=== PATIENT | female | born 1950 | race Caucasian/White ===

== ENCOUNTER → 2018-12-22 08:18 | Outpatient (CLI) | payer MEDICARE, MEDICAID, SELFPAY ==
--- NOTE | 2018-12-22 08:22 | MR_ITS ---
MR lumbar spine wo con, MR 3-d myelogram/MRCP HISTORY: Low back pain with bilateral lower extremity pain. ITS.REASON: back pain ORDERING PHYSICIAN: Alan Gross MD PATIENT AGE: 68 years Comparison: None TECHNIQUE: Standard multiplanar multiecho sequences are performed without contrast. 3-D MIP and myelographic images are also rendered and reviewed FINDINGS: Normal alignment. The spinal cord ends at the L1 level. L1-L2 and L2-L3 have an unremarkable appearance. L3-L4: There is mild degenerative disc disease with minimal bulging disc. There is 2 mm anterolisthesis of L3. Mild facet and ligamentum flavum hypertrophy present with mild bilateral lateral recess and foraminal narrowing. L4-5: Mild concentric bulging disc. There is mild facet and ligamentum flavum hypertrophy with mild bilateral lateral recess and foraminal narrowing. L5-S1: There is mild facet hypertrophic change with mild bilateral foraminal narrowing. No disc herniation or bony canal stenosis. Incidental note is made of enlarged left adrenal gland 2.[address] of the adrenal glands without and with contrast with adrenal protocol suggested for further evaluation. IMPRESSION: 1. L3-L4: There is mild degenerative disc disease with minimal bulging disc. There is 2 mm anterolisthesis of L3. Mild facet and ligamentum flavum hypertrophy present with mild bilateral lateral recess and foraminal narrowing. 2. L4-5: Mild concentric bulging disc. There is mild facet and ligamentum flavum hypertrophy with mild bilateral lateral recess and foraminal narrowing. 3. L5-S1: There is mild facet hypertrophic change with mild bilateral foraminal narrowing. 4. No disc herniation or bony canal stenosis. 5. Left adrenal enlargement. Consider CT of the adrenal glands with adrenal gland protocol without and with contrast IMPRESSION:
== END ==
PROVIDERS: PCP Emergency Medicine; Visit Provider Emergency Medicine
DX: M54.9 Dorsalgia, unspecified (principal); M54.5 Low back pain
CPT/HCPCS: 72148; 76376

== ENCOUNTER → 2019-01-05 09:31 | Outpatient (CLI) | payer MEDICARE, MEDICAID, SELFPAY ==
[2019-01-05 11:12] LABS: Anion Gap 8.9 mEq/L (5-15); Blood Urea Nitrogen 12 mg/dL (7-18); Calcium 9.6 mg/dL (8.5-10.1); Carbon Dioxide 36 mmol/L (21.0-32.0); Chloride 97 mmol/L (98-107); Creatinine,Serum 0.61 mg/dL (0.55-1.02); Estimated Glomerular Filt Rate 98 ml/min (>60); GFR (African American) 119 ML/MIN (>60); Glucose 97 mg/dL (74-106); Potassium 4.9 mmoL/L (3.5-5.1); Sodium 137 mmol/L (136-145)
== END ==
PROVIDERS: Visit Provider Nurse Practitioner Family
DX: Z01.818 Encounter for other preprocedural examination (principal)
CPT/HCPCS: 36415; 80048

== ENCOUNTER → 2019-01-06 08:31 | Outpatient (CLI) | payer MEDICARE, MEDICAID, SELFPAY ==
--- NOTE | 2019-01-06 08:36 | CT_ITS ---
CT abdomen wo/w con CLINICAL INDICATION: Left adrenal mass ITS.REASON: enlarged left adrenal gland ORDERING PHYSICIAN: Shyanne Gamez PATIENT AGE: 68 years COMPARISON: 12/22/2018 TECHNIQUE: Axial images obtained with sagittal and coronal reformats. All CT scans at the facility use one or more dose reduction, viz: automated exposure control, ma/kV adjustment per patient size (including targeted exams where dose is matched to indication, i.e. head), or iterative reconstruction technique. PROCEDURE: Oral Contrast: None IV Contrast: 75 mL Optiray 350. FINDINGS: Lower thorax: There are some atelectatic or fibrotic changes in the lung bases. A 10 mm nodular opacity is present in the left lung base medially. There are some fibrotic or atelectatic changes adjacent to this nodular opacity. There is calcification of the right adrenal gland. There is a 3 x 2.8 cm left adrenal mass. This however measures -21 Hounsfield units on the pre enhanced exam 34 Hounsfield units on the enhanced hast exam and -5 Hounsfield units on the delayed images consistent with an adenoma. The liver, gallbladder, spleen, and pancreas have an unremarkable appearance. Common bile duct is prominent measuring up to 1 cm in the pancreatic head region. No obvious common duct stone. No renal or ureteral calculi. No obvious renal mass. Small exophytic isodensity projects off the lateral aspect of the left kidney at 5 mm suggesting a small renal cyst. No acute bony findings. IMPRESSION: 1. Left adrenal mass is consistent with an adenoma. 2. Prominent common bile duct at 10 mm. Ultrasound and MRCP may be of further value 3. 10 mm left lower lobe nodular opacity which may be due to an area of scarring. [address] follow-up suggested
--- NOTE | 2019-01-06 10:19 | HMH.ITSHM ---
Current Home Medications as stated by this patient Shiloh Villalta or patient account representative. []BREO GABAPENTIN,LISINOPRIL,HYDROCODONE VENTOLIN
== END ==
PROVIDERS: PCP Emergency Medicine; Visit Provider Nurse Practitioner Family
DX: Q89.1 Congenital malformations of adrenal gland (principal)
CPT/HCPCS: 74170

== ENCOUNTER → 2019-01-24 07:42 | Outpatient (CLI) | payer MEDICARE, MEDICAID, SELFPAY ==
--- NOTE | 2019-01-24 07:43 | CT_ITS ---
CT chest wo con HISTORY: Follow-up pulmonary nodule, smoker, tobacco use ITS.REASON: 3 mth f/u due after 03/06/19 ORDERING PHYSICIAN: Alan Gross MD PATIENT AGE: 68 years COMPARISON: 01/06/2019 Technique: Axial images obtained without contrast. Sagittal, and coronal reformatted images are also generated and reviewed. All CT scans at the facility use one or more dose reduction, viz: automated exposure control, ma/kV adjustment per patient size (including targeted exams where dose is matched to indication, i.e. head), or iterative reconstruction technique. FINDINGS: There are coronary artery calcifications. No mediastinal or hilar mass or adenopathy is evident. There is normal heart size without obvious pericardial effusion. Mild calcification noted involving the aortic valve There is hyperinflation with attenuation of the peripheral pulmonary vessels consistent with COPD. Mild focal thickening noted in the right minor fissure anteriorly nonspecific flat-like in nature at 12 x 8 mm. Scattered areas of scarring are noted in the lung bases. The previously noted nodular opacity in the left lung base at approximately 10 mm is once again noted and not significant changed and may very well be due to an area of parenchymal fibrosis/scarring. Six-month follow-up recommended. There is an area of patchy groundglass density in the right lower lobe medially at 12 mm and could be due to small area of infiltrate. Upper abdominal images once again shows a 3 cm left adrenal mass with an average density of -9 Hounsfield units consistent with an adenoma not significantly changed. Calcification involves a small right adrenal gland. No acute bony findings. IMPRESSION: 1. COPD with scattered areas of scarring/fibrotic change. 2. Overall no change in the irregular opacity in the left lung base which may be due to an area of scarring. Continued six-month follow-up is suggested. 3. No change left adrenal adenoma. 4. Patchy area of groundglass density in the right lung base medially may be due to small area of infiltrate
== END ==
PROVIDERS: PCP Emergency Medicine; Visit Provider Emergency Medicine
DX: R91.1 Solitary pulmonary nodule (principal)
CPT/HCPCS: 71250

== ENCOUNTER → 2019-01-26 08:45 | Outpatient (CLI) | payer MEDICARE, MEDICAID, SELFPAY ==
--- NOTE | 2019-01-26 08:57 | US_ITS ---
US abdomen complete HISTORY: ITS.REASON: BILE DUCT ABNORMALITY ORDERING PHYSICIAN: Alan Gross MD PATIENT AGE: 68 years COMPARISON: January 06, 2019 CT abdomen pelvis FINDINGS: LIVER:. Only suggestion slight increased echogenicity suggesting very subtle fatty changes through majority of liver. There is a vague 2.3 cm slightly more hypoechoic area near the fissure of the ligamentum teres. I favor this reflects some focal fatty sparing is it is not evident on recent CT study with and without contrast No no significant Intrahepatic ductal dilatation. Upper normal caliber common centrally liver. COMMON DUCT then appear to be slightly dilated measuring up to 9.3 mm inferior grupo hepatis and slight less dilated inferior to this point to the head of pancreas. Between ultrasound and CT the CBD appears to gradually tapers inferior to this and to the head of pancreas.. No common duct stone appreciable. No mass of pancreas evident No adenopathy at the grupo hepatis however no significant PANCREAS:Appears satisfactory. Unremarkable. . No obvious mass or abnormal fluid collection. No pancreatic ductal dilatation . Kidneys appear normal in size bilaterally. Cortex well-maintained. No hydronephrosis. RIGHT KIDNEY:9.5 cm length 1.3 cm cyst at lower pole right kidney-adjacent to lower pole calyx LEFT KIDNEY:10 cm length. No hydronephrosis. Kidney unremarkable. Cortex well-maintained bilaterally. GALLBLADDER:No discrete gallstones,. Minimal sludge and debris at gallbladder.. No gallbladder wall thickening AORTA:Normal caliber aorta with atherosclerotic calcification No evidence of aneurysmal dilatation. SPLEEN:Moderate size, but normal echogenicity Unremarkable.. ASCITES:None demonstrated. IMPRESSION:...................... 1. Gallbladder. Minimal sludge no calcified stones 2. Common duct: perhaps very slightly dilated, at & inferior to grupo hepatis.... It gradually tapering to pancreas. No CBD stone evident.No pancreatic mass appreciable No significant intrahepatic ductal dilatation.. 3. Questionable Vague low-density area noted at central portion liver-however I suspect most likely reflects some fatty sparing adjacent to the fissure for ligamentum teres. No associated findings seen here on recent pre and postcontrast CT thus doubt of significance.- Can be followed 4. Small 1.3 cm cyst lower pole right kidney incidentally noted.
== END ==
PROVIDERS: PCP Emergency Medicine; Visit Provider Emergency Medicine
DX: K83.9 Disease of biliary tract, unspecified (principal)
CPT/HCPCS: 76700

== ENCOUNTER → 2019-02-08 13:55 | Outpatient (CLI) | payer MEDICARE, MEDICAID, SELFPAY ==
[2019-02-08 15:16] LABS: Amphetamine/Metha Screen,Urine Negative ng/mL (<1000); Barbiturates Screen,Urine Negative ng/mL (<200); Benzodiazepines Screen,Urine Negative ng/mL (<200); Cannabinoid Screen,Urine Negative ng/mL (<50); Cocaine Screen,Urine Negative ng/mL (<300); Methadone Screen,Urine Negative ng/mL (<300); Opiate Screen,Urine Negative ng/mL (<300); Phencyclidine Screen,Urine Negative ng/mL (<25)
[2019-02-17 13:06] LABS: Opiates Negative
== END ==
PROVIDERS: Visit Provider Emergency Medicine
DX: Z79.899 Other long term (current) drug therapy (principal)
CPT/HCPCS: 80305; 80361; G0480

== ENCOUNTER → 2019-06-01 13:36 | Outpatient (CLI) | payer MEDICARE, MEDICAID, SELFPAY ==
[2019-06-01 16:14] LABS: Amphetamine/Metha Screen,Urine Negative ng/mL (<1000); Barbiturates Screen,Urine Negative ng/mL (<200); Benzodiazepines Screen,Urine Negative ng/mL (<200); Cannabinoid Screen,Urine Negative ng/mL (<50); Cocaine Screen,Urine Negative ng/mL (<300); Methadone Screen,Urine Negative ng/mL (<300); Opiate Screen,Urine Negative ng/mL (<300); Phencyclidine Screen,Urine Negative ng/mL (<25)
== END ==
PROVIDERS: Visit Provider Nurse Practitioner Family
DX: Z79.899 Other long term (current) drug therapy (principal)
CPT/HCPCS: 80305

== ENCOUNTER → 2019-06-30 13:59 | Outpatient (CLI) | payer MEDICARE, MEDICAID, SELFPAY ==
[2019-06-30 14:36] LABS: Amphetamine/Metha Screen,Urine Negative ng/mL (<1000); Barbiturates Screen,Urine Negative ng/mL (<200); Benzodiazepines Screen,Urine Negative ng/mL (<200); Cannabinoid Screen,Urine Negative ng/mL (<50); Cocaine Screen,Urine Negative ng/mL (<300); Methadone Screen,Urine Negative ng/mL (<300); Opiate Screen,Urine Positive ng/mL (<300); Phencyclidine Screen,Urine Negative ng/mL (<25)
== END ==
PROVIDERS: Visit Provider Emergency Medicine
DX: M47.816 Spondylosis without myelopathy or radiculopathy, lumbar region (principal)
CPT/HCPCS: 80305

== ENCOUNTER → 2019-08-14 14:31 | Outpatient (CLI) | payer MEDICARE, MEDICAID, SELFPAY ==
--- NOTE | 2019-08-14 14:32 | CT_ITS ---
PROCEDURE: CT CHEST WO CON CLINICAL INDICATION: 6 mth f/u Follow-up pulmonary nodule. COPD COMPARISON: ABDWW CT abdomen wo/w con from 01/06/[address] chest wo con from 01/24/2019 TECHNIQUE: Axial images obtained with sagittal and coronal reformats. All CT scans at the facility use one or more dose reduction, viz: automated exposure control, ma/kV adjustment per patient size (including targeted exams where dose is matched to indication, i.e. head), or iterative reconstruction technique. FINDINGS: Coronary artery calcification. Normal heart size. COPD with scattered areas of scarring as previously described. There is persistent triangular-shaped opacity in the left lung base posteriorly measuring approximately 10 mm AP and transverse. This appears very slightly more prominent along the lower margin. This however could be due to the slice orientation. Continued follow-up is suggested. Previously noted ground-glass opacity in the right lung base is no longer apparent. No change in the left adrenal mass measuring 3 cm consistent with an adenoma. Calcification is present in right adrenal. Left hemidiaphragm is slightly elevated. IMPRESSION: 1. COPD with scattered areas of scarring. 10 mm nodular opacity noted in the left lung base posteriorly which appears slightly more prominent but may be due to the slice orientation. Recommend continued six-month follow-up to confirm a 1 year stability. 2. No change in left adrenal nodule consistent with an adenoma Dictated by: Galen Hawkins MD 08/15/2019 06:33 Electronically signed by Galen Hawkins MD in [place] 08/15/2019 06:33
== END ==
PROVIDERS: PCP Emergency Medicine; Visit Provider Emergency Medicine
DX: R91.8 Other nonspecific abnormal finding of lung field (principal)
CPT/HCPCS: 71250

== ENCOUNTER → 2020-04-26 12:49 | Outpatient (CLI) | payer MEDICARE, MEDICAID, SELFPAY ==
--- NOTE | 2020-04-26 12:49 | CT_ITS ---
PROCEDURE: CT CHEST WO CON CLINICAL INDICATION: 6 mth f/u Follow-up lung nodule COMPARISON: CHESTWO CT chest wo con from 01/24/2019 CT CHEST WO CON from 08/14/2019 TECHNIQUE: Axial images obtained with sagittal and coronal reformats. All CT scans at the facility use one or more dose reduction, viz: automated exposure control, ma/kV adjustment per patient size (including targeted exams where dose is matched to indication, i.e. head), or iterative reconstruction technique. FINDINGS: HEART AND MEDIASTINAL STRUCTURES: There are coronary artery calcifications. No mediastinal or hilar mass or adenopathy. Aortic valve calcifications also noted. LUNGS AND PLEURAL SPACES: COPD with scattered areas of scarring. Irregular opacity in the left lung base medially once again noted. This does not appear significantly changed. Other areas of scarring also noted unchanged. No new parenchymal opacities identified BONY STRUCTURES: No acute bony abnormalities apparent. UPPER ABDOMEN: No change 2.9 cm low-dense nodule of the adrenal gland consistent with an adenoma ADDITIONAL FINDINGS: No other significant abnormalities. IMPRESSION: Overall stable CT appearance of the chest. There are changes of COPD with scattered areas of scarring. The parenchymal opacity in the left lung base medially does not appear significantly changed. Suggest annual follow-up No change left adrenal nodule consistent with an adenoma. Coronary artery calcifications are present Dictated by: Galen Hawkins MD 04/27/2020 07:18 Electronically signed by Galen Hawkins MD in [place] 04/27/2020 07:18
== END ==
PROVIDERS: PCP Emergency Medicine; Visit Provider Emergency Medicine
DX: R91.1 Solitary pulmonary nodule (principal)
CPT/HCPCS: 71250

== ENCOUNTER → 2020-06-13 06:28 | Outpatient (CLI) | payer MEDICARE, MEDICAID, SELFPAY ==
--- NOTE | 2020-06-13 06:29 | CA_ITS ---
APPROVED REPORT EXAM: Comprehensive 2D, Doppler, and color-flow Echocardiogram Semiconductor Engineer: Maria E La CRT Ht: 5 ft 2 in Wt: 173lbs BSA: 1.80 BP: 138/69 mmHg Indications: Chest Pain, Shortness of Breath, Hyperlipidemia, Hypertension/HDD, Smoker, CAD 2D Dimensions LVOT 1.70 cm (M/F) 1.5-2.5 M-Mode Dimensions RVDd 2.84 cm (0.9-2.6) LVDd 4.54 cm (3.5-5.7) LVDs 2.50 cm (3.5-5.7) IVSd 1.51 cm (0.6-1.1) PWd 0.91 cm (0.6-1.1) EF (Teich) 76.40% FS 44.90% EDV (Teich) 94.40 mL ESV (Teich) 22.30 mL LV Diastology E/A Ratio 0.84 Mitral Valve MV A Velocity 92.00 (40-130 cm/s) Left Ventricle Left atrium is mildly enlarged, left ventricle is normal size, mild concentric left ventricular hypertrophy, visually estimated ejection fraction 55% with no regional wall motion abnormality, grade 1 diastolic dysfunction seen without tissue Doppler evidence of raise left atrial pressure. Right Ventricle Right atrium and right ventricle are normal size and contractility. Aortic Valve Aortic valve is minimally thickened and fibrosed, there is no aortic stenosis or aortic insufficiency. Mitral Valve Mitral valve leaflets are minimally thickened, there is no mitral stenosis, there is mild mitral regurgitation. Tricuspid Valve Tricuspid valve is grossly normal, there is mild tricuspid regurgitation, tricuspid regurgitation jet velocity is inadequate for calculation of the right ventricular systolic pressure. Pulmonic Valve Pulmonic valve is poorly visualized. Great Vessels Aortic root is normal size. Pericardium No significant pericardial effusion noted. Conclusion 1. Mildly enlarged left atrium, normal left ventricular size, mild concentric left ventricular hypertrophy, visually estimated ejection fraction 55% with no regional wall motion abnormality, grade 1 diastolic dysfunction seen without tissue Doppler evidence of raise left atrial pressure. 2. Mild mitral and tricuspid regurgitation. 3. No significant pericardial effusion noted. Electronically signed by : Gage Muller, 06/13/2020 13:10:00
--- NOTE | 2020-06-13 06:29 | CA_ITS ---
APPROVED REPORT Ampoule Filler And Sealer: [place] Laterality: Bilateral Study Quality: Good Indications: atypical angina/coronary calcium on ct Doppler Spectral Velocity Analysis dICA (R) 74.70/18.70 cm/s dICA (L) 106.90/31.30 cm/s Abdias (R) 106.00/19.30 cm/s Abdias (L) 102.30/35.80 cm/s pICA (R) 285.80/55.50 cm/s pICA (L) 162.90/40.70 cm/s dCCA (R) 54.20/10.80 cm/s dCCA (L) 71.80/21.90 cm/s pCCA (R) 191.80/66.10 cm/s pCCA (L) 69.70/17.20 cm/s Vert (R) 44.60/13.00 cm/s Vert (L) 53.80/17.00 cm/s ICA/CCA 5.30 ICA/CCA 2.20 Findings Duplex evaluation demonstrates stenosis of the right proximal internal carotid artery in the range of 70-99% Duplex evaluation demonstrates stenosis of the left proximal internal carotid artery in the range of 50-79% Antegrade flow seen bilateral vertebral arteries. Conclusion Duplex evaluation demonstrates stenosis of the right proximal internal carotid artery in the range of 70-99% Duplex evaluation demonstrates stenosis of the left proximal internal carotid artery in the range of 50-79% Antegrade flow seen bilateral vertebral arteries. Electronically signed by : Galen Hawkins MD 06/14/2020 17:44:08
--- NOTE | 2020-06-13 06:33 | CA_ITS ---
APPROVED REPORT Exam: Pharmacologic Technologist: Erin Davey, Ht: 5 ft 2 in Wt: 170 lbs BSA: 1.78 m2 HR: 60 bpm BP: 105/51 mmHg Rhythm: SINUS BRADYCARDIA,LOW VOLTAGE QRS Medical History Medical History: HTN, Hyperlipidemia, Smoking Medications: Hydrocodone,,,,, Gabapentin,,,,, Lisinopril/HCTZ,,,,, RoSovastatin,,,,, Cardiac Risk Factors: HTN, Hyperlipidemia, FHX of CAD, Smoking Stress Test Details Test: LEXISCAN HR Resting HR: 63 bpm Max Heart Rate (APMHR): 153 bpm Max HR Achieved: 79 bpm Target HR (85% APMHR): 130 bpm % of APMHR: 51 Recovery HR: 65 bpm BP Resting BP: 105/51 mmHg Max BP: 135/60 mmHg Recovery BP: 125.0/59.0 mmHg ECG Resting ECG: SINUS BRADYCARDIA,LOW VOLTAGE QRS Clinical Exercise duration: 04:35 min Highest Stage Achieved: Exercise capacity: 1.0 METs Stress ECG Conclusion DURING INFUSION PATIENT WAS MILDLY LIGHT-HEADED. NO CHEST PAIN. NO ARRHYTHMIAS/ECTOPY. NO SIGNIFICANT ST-T CHANGES. UNREMARKABLE LEXISCAN STRESS. MYOVIEW IMAGES REPORTED SEPARATELY. Electronically signed by : Gage Muller, 06/14/2020 10:32:39
--- NOTE | 2020-06-13 06:33 | NM_ITS ---
APPROVED REPORT Exam: Nuclear Stress Test Indication: HTN, HYPERLIPIDEMIA, TOB USE, FM HX, C.P. Patient Location: Outpatient Stress Tech: Odette Haronkson MD Tech:JUAN Hayward RT(R)(N) Ht: 5 ft 2 in Wt: 170 lbs Bra Size: 36B HR: 60 bpm BP: 105/51 mmHg BSA: 1.78 m2 BMI: 31.0 History: HTN, HYPERLIPIDEMIA, TOB USE, FM HX, C.P. Procedure: Patient received a 0.4 mg of intravenous Lexiscan, resting heart rate 60 bpm, resting blood pressure 105/51 mmHg, with Lexiscan maximum heart rate achived was 96 bpm which is Less than 85 % of the maximum predicted heart rate and blood pressure was 130/64 mmHg. With Lexiscan, patient denied any complaint of chest pain. Electrocardiogram Resting electrocardiogram showed sinus rhythm, with Lexiscan there is less than 1.[address] segment depression noted from the baseline EKG. The EKG portion of the Lexiscan Myoview is nondiagnostic. Cardiac Stress and Resting SPECT Images: Cardiac Stress and Resting SPECT images were obtained using technetium 99m Myoview 31.8 mCi stress and 10.41 mCi at rest. Gated SPECT for the analysis of segmental wall motion and calculation of the ejection fraction also done. Cardiac stress and resting SPECT images show mild fixed defect anteroapically with normal contracted gated SPECT is likely secondary to soft tissue attenuation, no reversible ischemia seen, computer derived ejection fraction is 64% with no regional wall motion abnormality, right ventricle is normal size and contractility. Conclusion: 1. The EKG portion of the Lexiscan Myoview is nondiagnostic. 2. No scintigraphic evidence of reversible ischemia seen, computer derived ejection fraction is 64% with no regional wall motion abnormality, right ventricle is normal size and contractility. 3. Likely normal Lexiscan Myoview study. Electronically signed by : Gage Muller, 06/14/2020 10:35:31
--- NOTE | 2020-06-13 09:04 | HMH.ITSHM ---
Current Home Medications as stated by this patient Shiloh Villalta or sales representative womens health. [] gabapentin lisinoppril asa
== END ==
PROVIDERS: PCP Emergency Medicine; Visit Provider Internal Medicine Cardiovascular Disease
DX: I20.8 Other forms of angina pectoris; R06.00 Dyspnea, unspecified; R42 Dizziness and giddiness; I10 Essential (primary) hypertension; J45.909 Unspecified asthma, uncomplicated; Z82.49 Family history of ischemic heart disease and other diseases of the circulatory system; F17.200 Nicotine dependence, unspecified, uncomplicated
CPT/HCPCS: 78452; 93017; 93306; 93880; A9502; J2785

== ENCOUNTER → 2020-06-28 09:06 | Outpatient (CLI) | payer MEDICARE, MEDICAID, SELFPAY ==
--- NOTE | 2020-06-28 09:18 | CT_ITS ---
Procedure: CT ANGIO NECK CLINICAL HISTORY: gustabo abnormal carotid u/s Headaches, dizziness, abnormal carotid duplex COMPARISON: No exams were available for comparison TECHNIQUE: IV Contrast: 100ml Optiray 350 Axial images obtained with sagittal and coronal reformats. All CT scans at the facility use one or more dose reduction, viz: automated exposure control, ma/kV adjustment per patient size (including targeted exams where dose is matched to indication, i.e. head), or iterative reconstruction technique. FINDINGS: There are mild atheromatous changes of the aorta with some calcific plaque at the ostium of the right brachiocephalic and the left carotid artery. No significant stenosis. Mild calcific plaque is present at the ostium of the right subclavian with approximately 30 percent stenosis. The vertebral arteries are patent bilaterally with no significant ostial stenosis. There is prominent calcific plaque at the distal aspect of the right common carotid. This is causing 75 percent stenosis of the distal aspect of the RIGHT COMMON CAROTID. Calcific plaque is present at the bifurcation and ostium of the internal carotid artery on the right which is causing 60 percent stenosis of the ostium of the RIGHT ICA. There is tortuosity of the internal carotid on the right with a retropharyngeal coarse. Calcific plaque is present in the proximal aspect of the left ICA causing approximately 56 stenosis. There is retropharyngeal course of the left ICA. No obvious ulcerations evident IMPRESSION: 1. 75 percent stenosis of the distal aspect the right common carotid artery due to calcific plaque 2. 60 percent stenosis of the ostium of the right ICA due to calcific plaque 3. 56 percent stenosis of the proximal left ICA due to calcific plaque Dictated b Galen Hawkins MD 06/29/2020 08:42 Galen Hawkins MD in [place] 06/29/2020 08:42
[2020-06-28 09:31] LABS: Blood Urea Nitrogen 9 mg/dl (7-17); Estimated Glomerular Filt Rate 123 ml/min (>60); GFR (African American) 149 ML/MIN (>60)
== END ==
PROVIDERS: Visit Provider Internal Medicine Cardiovascular Disease
DX: F17.200 Nicotine dependence, unspecified, uncomplicated (principal); I10 Essential (primary) hypertension; I20.8 Other forms of angina pectoris; I65.29 Occlusion and stenosis of unspecified carotid artery; J45.909 Unspecified asthma, uncomplicated; M79.7 Fibromyalgia; R06.00 Dyspnea, unspecified; R42 Dizziness and giddiness; Z82.49 Family history of ischemic heart disease and other diseases of the circulatory system
CPT/HCPCS: 36415; 70498; 82565; 84520; Q9967

== ENCOUNTER → 2020-12-19 09:35 | Outpatient (CLI) | payer MEDICARE, MEDICAID, SELFPAY ==
[2020-12-19 10:47] LABS: Alanine Aminotransferase 23 U/L (12-78); Albumin Level 4.2 g/dl (3.5-5.0); Alkaline Phosphatase 85 U/L (38-126); Aspartate Amino Transferase 26 U/L (14-36); Bilirubin,Direct 0.2 mg/dl (0.0-0.4); Bilirubin,Indirect 0.4 mg/dL (0.0-0.9); Bilirubin,Total 0.6 mg/dl (0.2-1.3); Bilirubin,Unconjugated 0.4 mg/dL (0.0-1.1); Chol/HDL Ratio 1.9 (1-3.5); Cholesterol 150 mg/dl (140-200); HDL Cholesterol 81 mg/dl (40-60); Triglycerides 101 mg/dl (30-150); VLDL Cholesterol 20 mg/dL (0-40)
[2020-12-19 10:59] LABS: Direct LDL Cholesterol 43.05 mg/dL (100-129)
== END ==
PROVIDERS: Visit Provider Internal Medicine Cardiovascular Disease
DX: F17.200 Nicotine dependence, unspecified, uncomplicated (principal); I10 Essential (primary) hypertension; R06.02 Shortness of breath; I65.23 Occlusion and stenosis of bilateral carotid arteries
CPT/HCPCS: 36415; 80061; 80076; 84484

== ENCOUNTER → 2020-12-26 10:34 | Outpatient (CLI) | payer MEDICARE, MEDICAID, SELFPAY ==
[2020-12-26 11:08] LABS: Basophils # 0.1 K/mm3 (0-0.2); Basophils % 0.7 % (0.1-2.0); Eosinophils # 0.3 K/mm3 (0.0-0.4); Eosinophils % 3.4 % (0.1-12.0); Hematocrit 41.9 % (37.0-47.0); Hemoglobin 13.1 g/dL (12.2-16.2); Lymphocytes # 2.3 K/mm3 (0.7-4.5); Lymphocytes % 31.6 % (10-50); Mean Corpuscular HGB Conc 31.2 g/dL (31.8-35.4); Mean Corpuscular Hemoglobin 28.8 pg (27.0-31.2); Mean Corpuscular Volume 92.3 fl (81-99); Mean Platelet Volume 7.2 fl (7.4-10.4); Monocytes # 0.5 K/mm3 (0.1-1.0); Monocytes % 6.8 % (1.7-9.3); Neutrophils # 4.2 K/mm3 (1.8-7.8); Neutrophils % 57.5 % (37.0-80.0); Platelet Count 238 K/mm3 (142-424); Red Blood Count 4.54 M/mm3 (4.20-5.40); Red Cell Distribution Width 13.1 % (11.5-17.5); White Blood Count 7.4 K/mm3 (4.8-10.8)
[2020-12-26 11:30] LABS: Troponin I < 0.01 ng/ml (0.00-0.034)
[2020-12-26 11:36] LABS: Chloride 99 mmol/L (98-107); Potassium 4.6 mmoL/L (3.5-5.1); Sodium 140 mmol/L (136-145)
[2020-12-26 11:39] LABS: Anion Gap 6.6 mEq/L (5-15); Blood Urea Nitrogen 15 mg/dl (7-17); Carbon Dioxide 39 mmol/L (22.0-30.0); Estimated Glomerular Filt Rate 83 ml/min (>60); GFR (African American) 101 ML/MIN (>60)
[2020-12-26 11:40] LABS: Calcium 9.7 mg/dl (8.4-10.2); Glucose 114 mg/dl (74-100)
[2020-12-26 11:48] LABS: Coronavirus 19 IgG Antibody Negative (Negative); Coronavirus 19 IgM Antibody Negative (Negative)
== END ==
PROVIDERS: Physician Assistant; Visit Provider Internal Medicine Cardiovascular Disease
DX: Z01.812 Encounter for preprocedural laboratory examination; Z20.822 Contact with and (suspected) exposure to COVID-19; R07.9 Chest pain, unspecified; R06.00 Dyspnea, unspecified; I20.0 Unstable angina; I10 Essential (primary) hypertension; F17.200 Nicotine dependence, unspecified, uncomplicated; I65.29 Occlusion and stenosis of unspecified carotid artery
CPT/HCPCS: 36415; 80048; 84484; 85025; 86328

== ENCOUNTER 2020-12-27 08:20 | Day surgery (SDC) | payer MEDICARE, MEDICAID, SELFPAY ==
[2020-12-27] VITALS (12 sets, daily range): BP systolic 80–120; BP diastolic 42–82; PULSE 41–65; RESP 16–20; O2SAT 90–100; BMI 30.7
--- NOTE | 2020-12-27 07:33 | IR_ITS ---
APPROVED REPORT Patient Location: Outpatient Powerhouse Mechanic Helper: JUAN Kelly RT (R) PROCEDURES Left heart catheterization Left ventriculogram Selective coronary angiogram INDICATION Crescendo angina, Class IV angina pectoris Informed consent was obtained prior to the procedure. COMPLICATIONS NONE Estimated Blood Loss: LESS THAN 10 ML TECHNIQUE One percent lidocaine used to anesthetize the right anterior aspect of the wrist. The right radial artery was accessed via the Seldinger technique. A 6 Tongan sheath was placed in the right radial artery. 2.5 mg of verapamil, 800 mcg of nitroglycerin, 1mg Lidocaine and 5000 U Heparin were given through the arterial sheath. The trap catheter was also used to perform left heart catheterization, left ventriculogram and selective coronary angiogram. At the end of the procedure the sheath was removed good hemostasis was achieved using Traclet band, patient was transferred to the postop holding area in stable condition. ANGIOGRAPHIC RESULTS The left main artery Normal The left anterior descending artery Is externally calcified under fluoroscopy however angiographically normal from an intraluminal standpoint with no intraluminal obstruction The circumflex artery Dominant normal The right coronary artery Nondominant normal The FULTON ventriculogram reveals Normal 65% The left ventricular end-diastolic pressure Severely elevated at 40 mmHg IMPRESSION Normal coronary arteries with fluoroscopic evidence of extravascular calcification which at this point is not clinically relevant Normal ejection fraction Severely elevated LVEDP consistent with severe diastolic dysfunction PLAN 1. Treatment of underlying diastolic dysfunction which is almost certainly the etiology for patient's angina pectoris Electronically signed by : Adama Mendoza, 12/27/2020 11:02:04
--- NOTE | 2020-12-27 08:28 | CA_ITS ---
APPROVED REPORT Bank Runner: Bea Martinez RVT Laterality: Bilateral Study Quality: Good Indications: gustabo Risk Factors Hypertension: Hyperlipidemia Smoking Doppler Spectral Velocity Analysis ECA (R) 104.20/18.80 cm/s ECA (L) 95.20/8.20 cm/s dICA (R) 186.20/44.40 cm/s dICA (L) 117.60/27.00 cm/s Abdias (R) 174.20/51.20 cm/s Abdias (L) 157.60/37.60 cm/s pICA (R) 254.50/58.10 cm/s pICA (L) 104.60/34.10 cm/s dCCA (R) 98.40/15.00 cm/s dCCA (L) 77.60/21.20 cm/s pCCA (R) 72.70/18.20 cm/s pCCA (L) 71.70/17.60 cm/s Vert (R) 44.40/15.40 cm/s Vert (L) 47.00/11.80 cm/s ICA/CCA 2.59 ICA/CCA 2.03 Findings Study suggests 70-99% (lower end of scale) stenosis of the right internal cartoid artery unchanged from the 06/13/20 study. Study suggests 50-69% stenosis of the left internal cartoid artery unchanged from the 06/13/20 study. Antegrade flow seen bilateral vertebral arteries. Conclusion Study suggests 70-99% (lower end of scale) stenosis of the right internal cartoid artery unchanged from the 06/13/20 study. Study suggests 50-69% stenosis of the left internal cartoid artery unchanged from the 06/13/20 study. Antegrade flow seen bilateral vertebral arteries. Electronically signed by : Galen Hawkins MD 12/27/2020 16:46:41
== END 2020-12-27 13:59 | disposition home or self-care (01) ==
LOC: CATHLAB 08:21
PROVIDERS: PCP Emergency Medicine; Visit Provider Internal Medicine
DX: I11.0 Hypertensive heart disease with heart failure; I65.29 Occlusion and stenosis of unspecified carotid artery; R06.00 Dyspnea, unspecified; R07.9 Chest pain, unspecified; R42 Dizziness and giddiness; Z72.0 Tobacco use; I25.110 Atherosclerotic heart disease of native coronary artery with unstable angina pectoris; I50.30 Unspecified diastolic (congestive) heart failure; Z88.0 Allergy status to penicillin; Z79.899 Other long term (current) drug therapy; Z79.51 Long term (current) use of inhaled steroids; Z79.82 Long term (current) use of aspirin
CPT/HCPCS: 93458; 93880; 99152; C1725; C1769; J1644; Q9967

== ENCOUNTER → 2021-01-03 08:07 | Outpatient (CLI) | payer MEDICARE, MEDICAID, SELFPAY ==
[2021-01-03 10:56] LABS: Blood Urea Nitrogen 18 mg/dl (7-17); Calcium 9.8 mg/dl (8.4-10.2); Carbon Dioxide 37 mmol/L (22.0-30.0); Chloride 99 mmol/L (98-107); Estimated Glomerular Filt Rate 71 ml/min (>60); GFR (African American) 86 ML/MIN (>60); Glucose 93 mg/dl (74-100); Sodium 139 mmol/L (136-145)
== END ==
PROVIDERS: Visit Provider Nurse Practitioner Family
DX: F17.200 Nicotine dependence, unspecified, uncomplicated (principal); I10 Essential (primary) hypertension; I25.10 Atherosclerotic heart disease of native coronary artery without angina pectoris; I65.29 Occlusion and stenosis of unspecified carotid artery; R06.00 Dyspnea, unspecified; R42 Dizziness and giddiness; Z82.49 Family history of ischemic heart disease and other diseases of the circulatory system
CPT/HCPCS: 36415; 80048

== ENCOUNTER → 2021-05-09 08:05 | Outpatient (CLI) | payer MEDICARE, MEDICAID, SELFPAY ==
--- NOTE | 2021-05-09 08:05 | CT_ITS ---
PROCEDURE: CT CHEST WO CON CLINICAL INDICATION: yearly f/u COMPARISON: CT CT CHEST WO CON from 04/26/2020 TECHNIQUE: Axial images obtained with sagittal and coronal reformats. All CT scans at the facility use one or more dose reduction, viz: automated exposure control, ma/kV adjustment per patient size (including targeted exams where dose is matched to indication, i.e. head), or iterative reconstruction technique. FINDINGS: Scattered mild emphysematous changes with bibasilar scar versus atelectasis again noted. No pleural effusion or pneumothorax. No discrete pulmonary nodules. Heart is not enlarged. No pericardial effusion or thickening. There is calcification of the abdominal aorta without aneurysm. Few small non-specific middle mediastinal lymph nodes are unchanged. Airways are patent. Images of the upper abdomen show a unchanged 3 centimeter nodule on the left adrenal gland, most consistent with adrenal adenoma. Calcified right adrenal gland noted. No other abnormality. Mild diffuse degenerative changes of the thoracic spine. No acute bony abnormality. IMPRESSION: Scattered mild emphysematous changes similar to prior exam with mild bibasilar scar versus atelectasis. No discrete pulmonary nodules. Unchanged 3 centimeter nodule left adrenal gland most consistent with adrenal adenoma. A few unchanged small middle mediastinal lymph nodes. Dictated by: Bradley Villeda MD 05/09/2021 09:59 Bradley Villeda MD in [place] 05/09/2021 09:59
== END ==
PROVIDERS: PCP Emergency Medicine; Visit Provider Emergency Medicine
DX: R91.1 Solitary pulmonary nodule (principal)
CPT/HCPCS: 71250

== ENCOUNTER → 2021-05-26 08:24 | Outpatient (CLI) | payer MEDICARE, MEDICAID, SELFPAY ==
--- NOTE | 2021-05-26 08:24 | FL_ITS ---
PROCEDURE: FL BARIUM SWALLOW CLINICAL INDICATION: trouble swallowing COMPARISON: No exams were available for comparison FINDINGS: Fluoro time: 1 minutes No annular constricting lesions or polypoid filling defects or mucosal abnormalities. There is a small sliding hiatal hernia. Reflux not demonstrated during the exam IMPRESSION: Small sliding hiatal hernia otherwise negative Dictated by: Galen Hawkins MD 05/26/2021 09:59 Galen Hawkins MD in [facility] 05/26/2021 09:59
== END ==
PROVIDERS: PCP Emergency Medicine; Visit Provider Emergency Medicine
DX: R13.10 Dysphagia, unspecified (principal)
CPT/HCPCS: 74220

== ENCOUNTER → 2021-06-02 09:55 | Outpatient (CLI) | payer MEDICARE, MEDICAID, SELFPAY | PROVIDERS: Visit Provider Surgery | DX: Z20.822 Contact with and (suspected) exposure to COVID-19 (principal) | CPT/HCPCS: U0003 ==

== ENCOUNTER 2021-06-04 08:31 | Day surgery (SDC) | payer MEDICARE, MEDICAID, SELFPAY ==
[2021-06-03 09:52] VITALS: BMI 31.1
[2021-06-04] VITALS (7 sets, daily range): BP systolic 100–143; BP diastolic 59–78; PULSE 93–112; RESP 16–18; TEMP 36.3–37.1; O2SAT 93–98
--- NOTE | 2021-06-04 09:40 | HMH.ANESCL ---
[facility] Anesthesia Checklist - Patient Identification Patient Identification: Arm Band - Structural Data Admitted From: Home Planned Operative Procedure/s: EGD Consent for Planned Operative Procedure(s) Verified: Yes - Airway Assessment C-Spine Mobility Assessed: Yes TMJ Mobility Assessed: Yes Dentition: Good Dentition - Neurological Assessment Level of Consciousness: Awake Hx Seizures: No Numbness or tingling in extremities: No - Anesthesia Plan Anesthesia Risk discussed: Yes Anesthesia Plan: Verified ASA Class: II Anesthesia Type: MAC [facility] History I have reviewed the patient's past medical history: Yes Medical History: Reports:: Anxiety, Asthma, Depression, Hyperlipidemia, Hypertension Denies:: Cancer, Diabetes Mellitus Type 1, Diabetes Mellitus Type 2, Gastroesophageal Reflux Disease(GERD), Internal Pacemaker, MRSA, Seizures, Transient Ischemic Attacks (TIA) *Have you ever received a pneumonia vaccine?: No *Have you received a flu vaccine this season?: No Other Medical History: Reports: Arthritis, Fibromyalgia, Sinus Problems. Denies: Thyroid Disease Anesthesia experience/problems:: None Laterality Cases: Bilateral: Arthroscopy Knee Other Surgeries: Yes: Appendectomy, Cardiac Catheterization, Colonoscopy, Hysterectomy-Total, Other. No: Pacemaker Amputation: No Fractures: No - *Social History Last grade of school completed: High school graduate Smoking Status: Current every day smoker Tobacco Type: cigarettes # Packs/Day (cigarettes): 1 Alcohol Intake: never Substance Use Type: denies use *Occupational Status:: disabled Housing: house Household Members: significant other *Travel in the last 8 weeks: None - Psychiatric History Pschychiatric History:: Reports:: Anxiety, Depression Family Hx:: Cancer, Coronary Artery Disease
--- NOTE | 2021-06-04 10:31 | P.PCN_ITS ---
- Procedure: Date: 06/04/21 Patient Date of :: 1950 Procedure Performed:: Esophagogastroduodenoscopy with biopsies Indications:: Patient is a 64-year-old female from [facility] with history of tobacco dependence, carotid artery stenosis, asthma referred by Dr. Gross for EGD for some dysphagia symptoms. Patient states that recently she had an episode where she had been taking her medication and she had syncope and passed out . She wonders if she had been dehydrated. She has had some discomfort in her lower substernal area consistent with fullness or a knot . She describes symptoms of shortness of air particularly with exertion. She is very active and works a 3 acre garden. She describes dyspnea with exertion. She had undergone CT scan of the chest which revealed is consistent with emphysema with stable mediastinal lymph nodes but no mass. She did have a barium swallow performed which revealed small sliding hiatal hernia but otherwise unremarkable. She is followed regularly by cardiology at this institution. She was referred for EGD for upper endoscopy. Performing Provider:: Param Martin MD Referring Provider:: Jose F Gross MD Sedation:: MAC sedation Procedure:: Patient was taken to endoscopy procedure room. She was positioned in lateral decubitus position. Adequate intravenous sedation was achieved with anesthesia titration of propofol. Olympus endoscope was inserted via the oropharynx. Is advanced into the esophagus. Overall esophagus appeared relatively unremarkable. Stomach was cannulated and insufflated. There was evidence of small hiatal hernia. There is some diffuse moderate gastritis. Gastric antral mucosal biopsies obtained for CLOtest for H. pylori. Pylorus was traversed. There was minimal nonerosive duodenitis. Biopsy was obtained. Endoscope was withdrawn into the stomach and gastric biopsies were obtained for histopathologic analysis. It was noted that she had some erosions high in the cardia. There was no active bleeding. Biopsies were obtained of the gastroesophageal junction. A couple of distal esophageal biopsies were obtained. Please note that at the completion of the procedure the patient did have some hypotension for which anesthesia administered ephedrine. Findings:: Erosive gastritis at the cardia Moderate nonerosive gastritis Mild nonerosive duodenitis Recommendations:: Follow-up on histopathology. Treat H. pylori if positive Complications:: No appreciable immediately apparent complications Estimated blood obtained (mL): 2
--- NOTE | 2021-06-04 10:44 | ECG_ITS ---
APPROVED REPORT Exam: Resting ECG HR:107 bpm ECG Measurements Heart Rate 107 AXES VT 158 P 88 QRSd 76 QRS 40 QT 360 T 44 QTc 480 Conclusion Sinus tachycardia Nonspecific ST abnormality Abnormal ECG Electronically signed by : Brady Muñiz, 06/04/2021 21:35:37
[2021-06-04 11:13] LABS: Creatine Kinase 36 U/L (30-135)
--- NOTE | 2021-06-04 11:24 | HMH.CNCARD ---
History of Present Illness Consult date: 06/04/21 Requesting physician: Param Martin Consult reason: post-op evaluation Chief complaint: Abnormal ST on telemetry Additional Medical History:: 1. Normal coronary arteries by cardiac catheterization, 12/2020 2. Carotid artery stenosis by ultrasound, moderate, on statin therapy 3. COPD with continued tobacco use 4. Hypertension 5. Hyperlipidemia History of present illness: 70-year-old white female seen in postop after EGD procedure for transient ST segment abnormalities noted on telemetry perioperatively. Patient reportedly had some bradycardia and a brief apneic episode that resulted in a rebound tachycardia. EKG was obtained that showed sinus tachycardia with nonspecific ST-T abnormalities that are essentially unchanged from EKG earlier this year. Patient is known to have normal coronary arteries by cardiac catheterization approximately 5 months ago. Currently in postop patient is awake, alert and oriented without complaints. Telemetry shows sinus rhythm with no arrhythmias. Patient recently had been on metoprolol therapy but this was discontinued due to complaints of a headache. [facility] History Medical History: Reports:: Anxiety, Asthma, Depression, Hyperlipidemia, Hypertension Denies:: Cancer, Diabetes Mellitus Type 1, Diabetes Mellitus Type 2, Gastroesophageal Reflux Disease(GERD), Internal Pacemaker, MRSA, Seizures, Transient Ischemic Attacks (TIA) *Have you ever received a pneumonia vaccine?: No *Have you received a flu vaccine this season?: No Other Medical History: Reports: Arthritis, Fibromyalgia, Sinus Problems. Denies: Thyroid Disease Anesthesia experience/problems:: None Laterality Cases: Bilateral: Arthroscopy Knee Other Surgeries: Yes: Appendectomy, Cardiac Catheterization, Colonoscopy, Hysterectomy-Total, Other. No: Pacemaker Amputation: No Fractures: No - *Social History Last grade of school completed: High school graduate Smoking Status: Current every day smoker Tobacco Type: cigarettes # Packs/Day (cigarettes): 1 Alcohol Intake: never Substance Use Type: denies use *Occupational Status:: disabled Housing: house Household Members: significant other *Travel in the last 8 weeks: None - Psychiatric History Pschychiatric History:: Reports:: Anxiety, Depression Family Hx:: Cancer, Coronary Artery Disease Meds Home Medications Medication Instructions Recorded Confirmed Type fluticasone furoate 100 1 inh INHALATION DAILY 06/07/20 05/30/21 History mcg-vilanterol 25 mcg/dose inhalation powder hydrocodone 7.5 mg-acetaminophen 1 tab PO TID PRN 05/19/21 05/30/21 History 325 mg tablet gabapentin 600 mg tablet 600 mg PO TID tab 05/28/21 05/30/21 History Albuterol Sulfate [Albuterol See Rx Instructions .ROUTE .COMPLEX 06/04/21 History Sulfate Hfa] Aspirin [Low Dose Aspirin EC] 81 mg PO DAILY 06/04/21 History Losartan/Hydrochlorothiazide 1 tab PO DAILY 06/04/21 History [Hyzaar 100-25 Tablet] Rosuvastatin Calcium 20 mg PO DAILY 06/04/21 History Allergies Allergy/AdvReac Type Severity Reaction Status Date / Time amoxicillin Allergy Intermediate hives Verified 05/30/21 13:05 tizanidine [From Zanaflex] Allergy Intermediate Hives Verified 05/30/21 13:05 metoprolol Allergy Mild Verified 05/30/21 13:05 Exam Vital signs and Labs for Last 24 Hours: Temp Pulse Resp BP Pulse Ox 97.4 F L 112 H 16 143/67 H 96 06/04/21 10:32 06/04/21 10:32 06/04/21 10:32 06/04/21 10:32 06/04/21 10:32 Laboratory Results - last 24 hr 06/04/21 10:59: Total Creatine Kinase 36 I & O for Last 24 hours: Intake & Output 06/01/21 06/02/21 06/03/21 06/04/21 11:59 11:59 11:59 11:59 Weight 170 lb - Constitutional no acute distress - *Routine HEENT Exam Head: Present: normocephalic Eye: Present: EOMI, PERRL ENT: Present: mucous membranes moist - *Routine Neck Exam Present: supple. Absent: lymphadenopathy - *Routine Respirato
[2021-06-04 11:26] LABS: CKMB Relative Index 0.8 U/L (0-4.0); Creatine Kinase MB 0.3 ng/ml (0.0-2.03)
[2021-06-04 11:31] LABS: Troponin I < 0.01 ng/ml (0.00-0.034)
== END 2021-06-04 11:20 | disposition home or self-care (01) ==
PROVIDERS: PCP Emergency Medicine; Visit Provider Surgery
PROC: 0DJ08ZZ Inspection of Upper Intestinal Tract, Via Natural or Artificial Opening Endoscopic (ICD-10-PCS; CPT 43235; principal; 2021-06-04 10:00)
DX: K29.60 Other gastritis without bleeding (principal); K29.80 Duodenitis without bleeding; I65.29 Occlusion and stenosis of unspecified carotid artery; I10 Essential (primary) hypertension; J44.9 Chronic obstructive pulmonary disease, unspecified; E78.5 Hyperlipidemia, unspecified; Z72.0 Tobacco use; M19.90 Unspecified osteoarthritis, unspecified site; E07.9 Disorder of thyroid, unspecified; Z90.49 Acquired absence of other specified parts of digestive tract; Z88.1 Allergy status to other antibiotic agents; Z88.8 Allergy status to other drugs, medicaments and biological substances
CPT/HCPCS: 43239; 36415; 82550; 82553; 84484; 87339; 88305; 88342; 93005; 93225; 93226

== ENCOUNTER → 2021-07-16 10:08 | Outpatient (CLI) | payer MEDICARE, MEDICAID, SELFPAY ==
--- NOTE | 2021-07-16 10:10 | CA_ITS ---
APPROVED REPORT Refuse Collector Supervisor: KATHY Laterality: Bilateral Study Quality: Good, Due to hyperventilation. Indications: bilateral MOISES Risk Factors Hypertension: Hyperlipidemia PAD Smoking Doppler Spectral Velocity Analysis ECA (R) 149.30/41.90 cm/s ECA (L) 142.90/11.20 cm/s dICA (R) 92.00/25.70 cm/s dICA (L) 86.00/25.00 cm/s Abdias (R) 148.60/39.50 cm/s Abdias (L) 93.70/28.30 cm/s pICA (R) 192.50/55.60 cm/s pICA (L) 63.60/16.10 cm/s dCCA (R) 62.10/12.00 cm/s dCCA (L) 93.10/35.30 cm/s pCCA (R) 98.00/14.20 cm/s pCCA (L) 104.00/24.10 cm/s Vert (R) 27.70/6.70 cm/s Vert (L) 40.50/12.80 cm/s ICA/CCA 2.00 ICA/CCA 1.00 Findings Duplex evaluation demonstrates stenosis of the right proximal internal carotid artery in the range of 70-99% with PSV =140 cm/sec. Duplex evaluation demonstrates stenosis of the left proximal internal carotid artery in the range of 20-49% with PSV <140 cm/sec. Duplex evaluation demonstrates antegrade flow of the bilateral Vertebral Arteries. Conclusion Duplex evaluation demonstrates stenosis of the right proximal internal carotid artery in the range of 70-99% with PSV =140 cm/sec. Duplex evaluation demonstrates stenosis of the left proximal internal carotid artery in the range of 20-49% with PSV <140 cm/sec. Duplex evaluation demonstrates antegrade flow of the bilateral Vertebral Arteries. Electronically signed by : Galen Hawkins MD 07/16/2021 16:53:25
== END ==
PROVIDERS: PCP Emergency Medicine; Visit Provider Urology
DX: I65.29 Occlusion and stenosis of unspecified carotid artery (principal); R55 Syncope and collapse
CPT/HCPCS: 93880

== ENCOUNTER → 2021-07-16 15:05 | Outpatient (CLI) | payer MEDICARE, MEDICAID, SELFPAY ==
[2021-07-16 15:40] LABS: Amphetamine/Metha Screen,Urine Negative ng/ml (<1000); Barbiturates Screen,Urine Negative ng/ml (<200)
[2021-07-16 15:41] LABS: Benzodiazepines Screen,Urine Negative ng/ml (<200)
[2021-07-16 15:42] LABS: Cannabinoid Screen,Urine Negative ng/ml (<50); Cocaine Screen,Urine Negative ng/ml (<300)
[2021-07-16 15:43] LABS: Methadone Screen,Urine Negative ng/ml (<300); Opiate Screen,Urine Positive ng/ml (<300)
[2021-07-16 15:44] LABS: Phencyclidine Screen,Urine Negative ng/ml (<25)
== END ==
PROVIDERS: Visit Provider Emergency Medicine
DX: M47.816 Spondylosis without myelopathy or radiculopathy, lumbar region (principal); R55 Syncope and collapse
CPT/HCPCS: 80305; 93880

== ENCOUNTER → 2021-08-19 09:34 | Outpatient (CLI) | payer MEDICARE, MEDICAID, SELFPAY ==
[2021-08-19 10:40] VITALS: PULSE 67; PULSE 70
== END ==
PROVIDERS: PCP Emergency Medicine; Visit Provider Emergency Medicine
DX: R06.00 Dyspnea, unspecified (principal)
CPT/HCPCS: 94060; 94618; 94640; 94727; 94729; 94762

== ENCOUNTER → 2021-09-02 10:41 | Outpatient (CLI) | payer MEDICARE, MEDICAID, SELFPAY | PROVIDERS: PCP Emergency Medicine; Visit Provider Internal Medicine Pulmonary Disease | DX: G47.30 Sleep apnea, unspecified (principal) | CPT/HCPCS: G0399 ==

== ENCOUNTER → 2021-09-08 14:54 | Outpatient (CLI) | payer MEDICARE, MEDICAID, SELFPAY ==
[2021-09-08 15:18] LABS: Basophils # 0.1 K/mm3 (0-0.2); Basophils % 2.3 % (0.1-2.0); Eosinophils # 0.1 K/mm3 (0.0-0.4); Hematocrit 49.2 % (37.0-47.0); Hemoglobin 15.8 g/dL (12.2-16.2); Lymphocytes # 1.7 K/mm3 (0.7-4.5); Lymphocytes % 28.8 % (10-50); Mean Corpuscular Hemoglobin 30.3 pg (27.0-31.2); Mean Corpuscular Volume 94.8 fl (81-99); Mean Platelet Volume 9.5 fl (7.4-10.4); Monocytes # 0.4 K/mm3 (0.1-1.0); Monocytes % 6.1 % (1.7-9.3); Neutrophils # 3.6 K/mm3 (1.8-7.8); Neutrophils % 63.1 % (37.0-80.0); Platelet Count 300 K/mm3 (142-424); Red Blood Count 5.19 M/mm3 (4.20-5.40); Red Cell Distribution Width 13.3 % (11.5-17.5); White Blood Count 5.7 K/mm3 (4.8-10.8)
[2021-09-08 15:23] LABS: Alanine Aminotransferase 29 U/L (12-78); Albumin/Globulin Ratio 1.3 (1.1-1.8); Alkaline Phosphatase 94 U/L (38-126); Anion Gap 11.8 mEq/L (5-15); Aspartate Amino Transferase 53 U/L (14-36); Bilirubin,Total 0.6 mg/dl (0.2-1.3); Blood Urea Nitrogen 11 mg/dl (7-17); Calcium 9.1 mg/dl (8.4-10.2); Carbon Dioxide 34 mmol/L (22.0-30.0); Chloride 94 mmol/L (98-107); Chol/HDL Ratio 2.2 (1-3.5); Cholesterol 148 mg/dl (140-200); Estimated Glomerular Filt Rate 159 ml/min (>60); GFR (African American) 192 ML/MIN (>60); Globulin 3.1 g/dL (1.3-3.2); Glucose 99 mg/dl (74-100); HDL Cholesterol 66 mg/dl (40-60); Potassium 3.8 mmoL/L (3.5-5.1); Sodium 136 mmol/L (136-145); Total Protein,Serum 7.1 g/dl (6.3-8.2); Triglycerides 140 mg/dl (30-150); VLDL Cholesterol 28 mg/dL (0-40)
[2021-09-08 15:32] LABS: 25-OH Vitamin D, Total 24.6 ng/mL (30-100)
[2021-09-08 15:35] LABS: Direct LDL Cholesterol 42.74 mg/dL (100-129)
[2021-09-08 15:41] LABS: T4 (Thyroxine) 7.8 ug/dl (5.53-11.0)
[2021-09-08 15:53] LABS: Thyroid Stimulating Hormone 1.11 uIU/mL (0.465-4.68)
== END ==
PROVIDERS: Visit Provider Emergency Medicine
DX: I10 Essential (primary) hypertension (principal); R00.0 Tachycardia, unspecified; I20.0 Unstable angina; E55.9 Vitamin D deficiency, unspecified
CPT/HCPCS: 80053; 80061; 82306; 84436; 84443; 85025

== ENCOUNTER → 2022-12-11 10:25 | Outpatient (CLI) | payer MEDICARE, MEDICAID, SELFPAY ==
--- NOTE | 2022-12-11 10:25 | MR_ITS ---
FINAL REPORT TECHNIQUE: Multiplanar and multisequence imaging of the shoulder was obtained without contrast. CLINICAL HISTORY: left shoulder pain, decreased ROM X 3 MONTHS COMPARISON: None FINDINGS: Bones and joints: There is no acute fracture, edema, or pathologic marrow replacement. Acromioclavicular joint degenerative disease is present and there is osteophytosis which narrows the supraspinatus outlet. Rotator cuff: There is a full-thickness posterior supraspinatus/anterior infraspinatus tear at the footplate with no retraction of the tendon. The subscapularis is intact. There is no fatty atrophy of the rotator cuff muscles. Labrum: The biceps labral complex is intact. No convincing labral tear. The glenohumeral ligaments appear intact. The biceps tendon is within normal limits. Other: There is no joint effusion. Remaining soft tissues are within normal limits. IMPRESSION: Full-thickness posterior supraspinatus/anterior infraspinatus tear. AC joint degenerative disease with with osteophytosis narrowing the supraspinatus outlet. Reviewed, Interpreted and Dictated by Tala Roman MD Transcribed by Angie Tyler Authenticated and [facility]
== END ==
PROVIDERS: PCP Emergency Medicine; Visit Provider Physician Assistant
DX: M25.512 Pain in left shoulder (principal); W19.XXXA Unspecified fall, initial encounter
CPT/HCPCS: 73221

== ENCOUNTER 2024-01-04 12:03 | Outpatient (CLI) | payer MEDICARE, MEDICAID, SELFPAY ==
[2024-01-04 12:22] LABS: Basophils % 0.6 % (0.1-2.0); Eosinophils # 0.1 K/mm3 (0.0-0.4); Eosinophils % 2.5 % (0.1-12.0); Hematocrit 43.6 % (37.0-47.0); Hemoglobin 14.8 g/dL (12.2-16.2); Lymphocytes # 2.3 K/mm3 (0.7-4.5); Lymphocytes % 40.9 % (10-50); Mean Corpuscular HGB Conc 33.8 g/dL (31.8-35.4); Mean Corpuscular Hemoglobin 31.6 pg (27.0-31.2); Mean Corpuscular Volume 93.6 fl (81-99); Mean Platelet Volume 8.5 fl (7.4-10.4); Monocytes # 0.4 K/mm3 (0.1-1.0); Monocytes % 6.9 % (1.7-9.3); Neutrophils # 2.8 K/mm3 (1.8-7.8); Neutrophils % 49.2 % (37.0-80.0); Platelet Count 215 K/mm3 (142-424); Red Blood Count 4.66 M/mm3 (4.20-5.40); Red Cell Distribution Width 13.5 % (11.5-17.5); White Blood Count 5.6 K/mm3 (4.8-10.8)
[2024-01-04 12:25] LABS: Alanine Aminotransferase 22 U/L (12-78); Albumin Level 4.2 g/dl (3.5-5.0); Albumin/Globulin Ratio 1.8 (1.1-1.8); Alkaline Phosphatase 77 U/L (38-126); Anion Gap 8.3 mEq/L (5-15); Aspartate Amino Transferase 27 U/L (14-36); Bilirubin,Total 0.6 mg/dl (0.2-1.3); Blood Urea Nitrogen 13 mg/dl (7-17); Calcium 9.6 mg/dl (8.4-10.2); Carbon Dioxide 35 mmol/L (22.0-30.0); Chloride 96 mmol/L (98-107); Chol/HDL Ratio 2.3 (1-3.5); Cholesterol 148 mg/dl (140-200); Estimated Glomerular Filt Rate 99 ml/min (>60); GFR (African American) 119 ML/MIN (>60); Globulin 2.4 g/dL (1.3-3.2); Glucose 95 mg/dl (74-100); HDL Cholesterol 63 mg/dl (40-60); Potassium 3.3 mmoL/L (3.5-5.1); Sodium 136 mmol/L (136-145); Total Protein,Serum 6.6 g/dl (6.3-8.2); Triglycerides 88 mg/dl (30-150); VLDL Cholesterol 18 mg/dL (0-40)
[2024-01-04 12:36] LABS: Direct LDL Cholesterol 52.47 mg/dL (100-129)
[2024-01-04 12:41] LABS: 25-OH Vitamin D, Total 40.6 ng/mL (30-100)
[2024-01-04 12:55] LABS: Thyroid Stimulating Hormone 0.96 uIU/mL (0.465-4.68)
== END 2024-01-04 23:59 ==
LOC: LAB.DROPOF 12:04
PROVIDERS: PCP Nurse Practitioner Family; Visit Provider Nurse Practitioner Family
DX: I10 Essential (primary) hypertension (principal); E55.9 Vitamin D deficiency, unspecified; E78.5 Hyperlipidemia, unspecified; R53.83 Other fatigue
CPT/HCPCS: 80053; 80061; 82306; 84443; 85025

== ENCOUNTER 2024-09-11 10:24 | Outpatient (CLI) | payer MEDICARE, MEDICAID, SELFPAY | END 2024-09-11 23:59 | disposition home or self-care (01) | LOC: RT 10:25 | PROVIDERS: PCP Family Medicine; Visit Provider Physician Assistant | DX: I65.23 Occlusion and stenosis of bilateral carotid arteries (principal); Z87.891 Personal history of nicotine dependence; J44.9 Chronic obstructive pulmonary disease, unspecified; R06.02 Shortness of breath; I10 Essential (primary) hypertension | CPT/HCPCS: 93880 ==

== ENCOUNTER 2024-09-28 10:39 | Outpatient (CLI) | payer MEDICARE, MEDICAID, SELFPAY | END 2024-09-28 23:59 | disposition home or self-care (01) | LOC: LAB.DROPOF 10:39 | PROVIDERS: PCP Family Medicine; Visit Provider Family Medicine | DX: N89.8 Other specified noninflammatory disorders of vagina (principal); R39.9 Unspecified symptoms and signs involving the genitourinary system | CPT/HCPCS: 87086; 87088; 87186; 87210 ==

== ENCOUNTER 2024-11-23 09:12 | Outpatient (CLI) | payer MEDICARE, MEDICAID, SELFPAY ==
[2024-11-23 18:41] LABS: Basophils % 0.3 % (0.1-2.0); Hemoglobin 14.5 g/dL (12.2-16.2); Lymphocytes # 0.7 K/mm3 (0.7-4.5); Lymphocytes % 20.8 % (10-50); Mean Corpuscular HGB Conc 33.7 g/dL (31.8-35.4); Mean Corpuscular Hemoglobin 30.5 pg (27.0-31.2); Mean Corpuscular Volume 90.3 fl (81-99); Monocytes # 0.6 K/mm3 (0.1-1.0); Monocytes % 16.5 % (1.7-9.3); Neutrophils # 2.2 K/mm3 (1.8-7.8); Neutrophils % 62.4 % (37.0-80.0); Platelet Count 179 K/mm3 (142-424); Red Blood Count 4.76 M/mm3 (4.20-5.40); Red Cell Distribution Width 12.5 % (11.5-17.5); White Blood Count 3.5 K/mm3 (4.8-10.8)
[2024-11-23 18:53] LABS: Hemoglobin A1C 5.6 % (4.0-6.0)
[2024-11-23 19:15] LABS: Alanine Aminotransferase 32 U/L (12-78); Albumin Level 4.1 g/dl (3.5-5.0); Albumin/Globulin Ratio 1.8 (1.1-1.8); Alkaline Phosphatase 73 U/L (38-126); Amylase 46 U/L (30-110); Anion Gap 8.7 mEq/L (5-15); Aspartate Amino Transferase 48 U/L (14-36); Bilirubin,Direct 0.4 mg/dl (0.0-0.4); Bilirubin,Indirect 0.1 mg/dL (0.0-0.9); Bilirubin,Total 0.5 mg/dl (0.2-1.3); Bilirubin,Unconjugated 0.1 mg/dL (0.0-1.1); Blood Urea Nitrogen 20 mg/dl (7-17); Calcium 9.3 mg/dl (8.4-10.2); Carbon Dioxide 39 mmol/L (22.0-30.0); Chloride 81 mmol/L (98-107); Chol/HDL Ratio 1.7 (1-3.5); Cholesterol 120 mg/dl (140-200); Estimated Glomerular Filt Rate 99 ml/min (>60); GFR (African American) 119 ML/MIN (>60); Globulin 2.3 g/dL (1.3-3.2); Glucose 82 mg/dl (74-100); HDL Cholesterol 71 mg/dl (40-60); Lipase 34 U/L (23-300); Potassium 3.7 mmoL/L (3.5-5.1); Sodium 125 mmol/L (136-145); Total Protein,Serum 6.4 g/dl (6.3-8.2); Triglycerides 76 mg/dl (30-150); VLDL Cholesterol 15 mg/dL (0-40)
[2024-11-23 19:27] LABS: Direct LDL Cholesterol 38.03 mg/dL (100-129)
[2024-11-23 19:38] LABS: Free Thyroxine Index 2.4 ug/dL (5.93-13.13); T4 (Thyroxine) 6.5 ug/dl (5.53-11.0); Triiodothryronine (T3) Uptake 37 % (23.5-40.5)
[2024-11-23 19:51] LABS: Thyroid Stimulating Hormone 1.83 uIU/mL (0.465-4.68)
== END 2024-11-23 23:59 | disposition home or self-care (01) ==
LOC: LAB.DROPOF 11-25 08:26
PROVIDERS: PCP Family Medicine; Visit Provider Family Medicine
DX: R11.2 Nausea with vomiting, unspecified (principal); R10.9 Unspecified abdominal pain; R31.9 Hematuria, unspecified; N39.0 Urinary tract infection, site not specified; B96.4 Proteus (mirabilis) (morganii) as the cause of diseases classified elsewhere
CPT/HCPCS: 80053; 80061; 80076; 82150; 83036; 83690; 84436; 84443; 84479; 85025; 87086; 87088; 87186

== ENCOUNTER 2024-12-08 08:23 | Outpatient (CLI) | payer MEDICARE, MEDICAID, SELFPAY ==
--- NOTE | 2024-12-08 08:31 | CT_ITS ---
FINAL REPORT TECHNIQUE: Axial CT images of the chest were obtained without contrast. Low-dose protocol was utilized. This study was performed with techniques to keep radiation doses as low as reasonably achievable (ALARA). Individualized dose reduction techniques using automated exposure control or adjustment of mA and/or kV according to the patient's size were employed. CLINICAL HISTORY: lung cancer screening current smoker 1/2ppd x27 years COMPARISON: CT chest 05/09/2021 FINDINGS: CT CHEST WITHOUT, LOW DOSE SCREENING CT Di Vol: 2.90 mGy DLP: 91.69 mGy*cm There is no axillary, mediastinal, or hilar adenopathy. The heart size is normal. There is no pleural or pericardial effusion. The lung windows show an oval density in the right midlung along the minor fissure on image 44 series 2 measuring 9 x 4 mm, previously measured 2 mm. This is likely an elongated intrafissural lymph node or focal pleural thickening. A triangular nodular density in the left lower lobe on image 54 measuring 9 mm previously measured 8 mm. Coarse density in the lateral to the dome of the left diaphragm on images 55-56 is attributed to scarring. The remaining lungs are clear. IMPRESSION: Interval enlargement groundglass opacity right midlung strongly favored benign. Follow-up imaging surveillance recommended. Other findings stable. LR Category 3: 6 month follow-up low-dose chest CT is recommended per Fleischner criteria. Reviewed, Interpreted and Dictated by Willian Glez MD Transcribed by Angie Tyler Authenticated and [facility]
--- NOTE | 2024-12-08 08:31 | CT_ITS ---
FINAL REPORT TECHNIQUE: Axial CT of the abdomen and pelvis, without and with IV contrast. Coronal and sagittal reconstructions obtained and reviewed. This study was performed with techniques to keep radiation doses as low as reasonably achievable, (ALARA). Individualized dose reduction techniques using automated exposure control or adjustment of mA and/or kV according to the patient''s size were employed. CLINICAL HISTORY: abd pain, n/v COMPARISON: none FINDINGS: Abdomen: Lung bases are clear. There is a low-density left adrenal mass measuring 30 x 24 mm with density characterizations compatible with benign adenoma on precontrast imaging. Linear calcifications are seen within the right adrenal gland. There is no evidence of adrenal mass. Precontrast imaging shows no renal stone disease. There is a lower pole right parapelvic cyst measuring 15 mm. An exophytic cyst in the left mid kidney measures 12 mm. The remaining solid organs are negative. There is a normal appearance of the gallbladder. However, biliary ductal dilatation is noted measuring up to 12 mm without obvious etiology. Mild fecal impaction without evidence of bowel obstruction. Pelvis: The appendix is not visualized but there are no secondary findings of appendicitis. The patient is status post hysterectomy. The urinary bladder is unremarkable. IMPRESSION: Fecal impaction without bowel obstruction or acute inflammatory changes. Mild extrahepatic biliary ductal dilatation. If abnormal LFTs, consider MRCP. Left adrenal mass compatible with benign adenoma. Reviewed, Interpreted and Dictated by Willian Glez MD Transcribed by Angie Tyler Authenticated and . [facility]
--- NOTE | 2024-12-08 08:43 | US_ITS ---
FINAL REPORT CLINICAL HISTORY: blood in urine FINDINGS: ULTRASOUND BLADDER WITH POST VOID RESIDUAL Bladder volumes were estimated based on 3 dimensional measurements, pre- and postvoid. Prevoid bladder volume: 91.5 mls. The bladder is poorly distended. There is no gross bladder mass identified. Postvoid bladder volume: 7.85 mls, within normal limits IMPRESSION: Normal bladder volumes. If concern for bladder mass exists, recommend cystoscopy. Reviewed, Interpreted and Dictated by Willian Glez MD Transcribed by Angie Tyler Authenticated and [facility]
[2024-12-08] MEDS: IOPAMIDOL-370 (76%);100ML BOTTLE 75 ML IV (09:13)
[2024-12-08] MEDS: SODIUM CHLORIDE 0.9% 10ML SYR (RAD ONLY) 10 ML IV (09:14)
== END 2024-12-08 23:59 | disposition home or self-care (01) ==
LOC: RAD 08:24
PROVIDERS: PCP Family Medicine; Visit Provider Family Medicine
DX: R11.2 Nausea with vomiting, unspecified (principal); R10.9 Unspecified abdominal pain; R31.9 Hematuria, unspecified; R10.819 Abdominal tenderness, unspecified site; R06.09 Other forms of dyspnea; Z87.891 Personal history of nicotine dependence
CPT/HCPCS: 71271; 74178; 76857; Q9967

== ENCOUNTER 2024-12-18 16:37 | Outpatient (CLI) | payer MEDICARE, MEDICAID, SELFPAY ==
[2024-12-18 16:05] LABS: Microscopic, Urine URINE MICROSCOPIC (MICROSCOPIC)
[2024-12-18 16:22] LABS: Appearance,Urine CLEAR (Clear); Bilirubin,Urine Negative (Negative); Blood, Urine 2+ (Negative); Color,Urine YELLOW (Yellow); Glucose,Urine (UA) Negative (Negative); Ketones,Urine Negative (Negative); Leukocyte Esterase,Urine Negative (Negative); Nitrate,Urine Negative (Negative); Protein,Urine Negative (Negative); Specific Gravity, Urine 1.015 (1.005-1.030); Urobilinogen,Urine 0.2 EU/dl (0.2)
[2024-12-18 16:44] LABS: Bacteria,Urine Trace /lpf
== END 2024-12-18 23:59 | disposition home or self-care (01) ==
LOC: LAB.DROPOF 16:37
PROVIDERS: PCP Urology; Visit Provider Urology
DX: N95.2 Postmenopausal atrophic vaginitis (principal); R31.9 Hematuria, unspecified; N39.0 Urinary tract infection, site not specified; N39.41 Urge incontinence
CPT/HCPCS: 81001; 87086; 87801

== ENCOUNTER 2025-03-26 09:19 | Outpatient (CLI) | payer MEDICARE, MEDICAID, SELFPAY ==
[2025-03-26 20:26] LABS: Alanine Aminotransferase 18 U/L (12-78); Albumin Level 4.2 g/dl (3.5-5.0); Albumin/Globulin Ratio 1.9 (1.1-1.8); Alkaline Phosphatase 73 U/L (38-126); Anion Gap 3.7 mEq/L (5-15); Aspartate Amino Transferase 25 U/L (14-36); Bilirubin,Total 0.4 mg/dl (0.2-1.3); Blood Urea Nitrogen 12 mg/dl (7-17); Calcium 9.4 mg/dl (8.4-10.2); Carbon Dioxide 36 mmol/L (22.0-30.0); Chloride 95 mmol/L (98-107); Estimated Glomerular Filt Rate 98 ml/min (>60); GFR (African American) 119 ML/MIN (>60); Globulin 2.2 g/dL (1.3-3.2); Glucose 69 mg/dl (74-100); Potassium 3.7 mmoL/L (3.5-5.1); Sodium 131 mmol/L (136-145); Total Protein,Serum 6.4 g/dl (6.3-8.2)
[2025-03-26 20:35] LABS: Creatinine,Urine Random 77 mg/dL (Not Estab.)
[2025-03-26 23:03] LABS: Hemoglobin A1C 5.6 % (4.0-6.0)
== END 2025-03-26 23:59 | disposition home or self-care (01) ==
LOC: LAB.DROPOF 03-27 09:17
PROVIDERS: PCP Family Medicine; Visit Provider Family Medicine
DX: I10 Essential (primary) hypertension (principal); N28.9 Disorder of kidney and ureter, unspecified
CPT/HCPCS: 80053; 82043; 82570; 83036

== ENCOUNTER 2025-05-24 06:54 | Outpatient (CLI) | payer MEDICARE, MEDICAID, SELFPAY ==
--- OUTSIDE RECORDS SUMMARY | 2025-05-24 06:58 | XMS_ITS | Data Portability ---
Author Organization [facility] Office Address [address] [address] Care Team Providers Care Fisher Swordfish Name Role Phone MARISELA MELARA Primary Care Provider Assessment Encounter Date Assessment Date Assessment LastModified by Organization Details LastModified Time 08/18/2024 08/18/2024 Global Risk Assessment Score: High Risk. High Risk Assessment: High Doses of Opioids to Manage Pain (>30 mg Morphine or equivalent) Multiple Pain or Medical Conditions (i.e., back, head and fibromyalgia) Multiple Physicians treating patient's conditions Lab work reviewed: UDS of 02/22/2024 reviewed and is appropriate. [place] (prescription drug monitoring report): As of 08/18/2024 reviewed and is appropriate Last fill 07/22/2024 Inappropriate due to: Medication compliance: According to patient medications are working well. Patient denies any side effects to medications prescribed. There are no signs of tolerance. Pattern of medication use is as previously prescribed. The patient states she is taking her medications as prescribed. She still has symptoms on a continuous basis, but they are alleviated somewhat by current meds. She understands that her symptoms will not be completely eliminated by medications. The patient has been instructed as to the type of medication prescribed along with directions for use. Potential side effects have been discussed, along with risks and benefits of taking this medication. She was instructed what to do if she experiences side effects, including when to discontinue the medication and was advised to call this office in this event. Prescription refills: Medications refilled for 2 months with out changes. Medication changes are as follows none [email or web address] Not available 08/18/2024 10:50:38 09/27/2024 09/27/2024 Global Risk Assessment Score: High Risk. High Risk Assessment: High Doses of Opioids to Manage Pain (>30 mg Morphine or equivalent) Multiple Pain or Medical Conditions (i.e., back, head and fibromyalgia) Multiple Physicians treating patient's conditions Lab work reviewed: UDS of 02/22/2024 reviewed and is appropriate. [place] (prescription drug monitoring report): As of 09/27/2024 reviewed and is appropriate Last fill 09/20/2024 Inappropriate due to: Medication compliance: According to patient medications are working well. Patient denies any side effects to medications prescribed. There are no signs of tolerance. Pattern of medication use is as previously prescribed. The patient states she is taking her medications as prescribed. She still has symptoms on a continuous basis, but they are alleviated somewhat by current meds. She understands that her symptoms will not be completely eliminated by medications. The patient has been instructed as to the type of medication prescribed along with directions for use. Potential side effects have been discussed, along with risks and benefits of taking this medication. She was instructed what to do if she experiences side effects, including when to discontinue the medication and was advised to call this office in this event. Prescription refills: Medications refilled for 2 months with out changes. Medication changes are as follows none [email or web address] Not available 09/27/2024 15:05:44 12/11/2024 12/11/2024 Global Risk Assessment Score: High Risk. High Risk Assessment: High Doses of Opioids to Manage Pain (>30 mg Morphine or equivalent) Multiple Pain or Medical Conditions (i.e., back, head and fibromyalgia) Multiple Physicians treating patient's conditions Lab work reviewed: UDS of 02/22/2024 reviewed and is appropriate. [place] (prescription drug monitoring report): As of 12/11/2024 reviewed and is appropriate Last fill Inappropriate due to: Medication compliance: According to patient medications are working well. Patient denies any side effects to medications prescribed. There are no signs of tolerance. Pattern of medication use is as previously prescribed. The patient states she is taking her medications as prescribed. She still has symptoms on a continuous basis, but they are alleviated somewhat by current meds. She understands that her symptoms will not be completely eliminated by medications. The patient has been instructed as to the type of medication prescribed along with directions for use. Potential side effects have been discussed, along with risks and benefits of taking this medication. She was instructed what to do if she experiences side effects, including when to discontinue the medication and was advised to call this office in this event. Prescription refills: Medications refilled for 2 months with out changes. Medication changes are as follows none [email or web address] Not available 12/31/2024 19:39:11 02/09/2025 02/09/2025 Global Risk Assessment Score: High Risk. High Risk Assessment: High Doses of Opioids to Manage Pain (>30 mg Morphine or equivalent) Multiple Pain or Medical Conditions (i.e., back, head and fibromyalgia) Multiple Physicians treating patient's conditions Lab work reviewed: UDS of 09/27/2024 reviewed and is appropriate. [place] (prescription drug monitoring report): As of 02/09/2025 reviewed and is appropriate Last fill 01/15/2025 Inappropriate due to: Medication compliance: According to patient medications are working well. Patient denies any side effects to medications prescribed. There are no signs of tolerance. Pattern of medication use is as previously prescribed. The patient states she is taking her medications as prescribed. She still has symptoms on a continuous basis, but they are alleviated somewhat by current meds. She understands that her symptoms will not be completely eliminated by medications. The patient has been instructed as to the type of medication prescribed along with directions for use. Potential side effects have been discussed, along with risks and benefits of taking this medication. She was instructed what to do if she experiences side effects, including when to discontinue the medication and was advised to call this office in this event. Prescription refills: Medications refilled for 2 months with out changes. Medication changes are as follows none msentelle Not available 03/06/2025 15:46:05 04/09/2025 04/09/2025 Global Risk Assessment Score: High Risk. High Risk Assessment: High Doses of Opioids to Manage Pain (>30 mg Morphine or equivalent) Multiple Pain or Medical Conditions (i.e., back, head and fibromyalgia) Multiple Physicians treating patient's conditions Lab work reviewed: UDS of 12/11/2024 reviewed and is appropriate. [place] (prescription drug monitoring report): As of 04/09/2025 reviewed and is appropriate Last fill 03/16/2025 Inappropriate due to: Medication compliance: According to patient medications are working well. Patient denies any side effects to medications prescribed. There are no signs of tolerance. Pattern of medication use is as previously prescribed. The patient states she is taking her medications as prescribed. She still has symptoms on a continuous basis, but they are alleviated somewhat by current meds. She understands that her symptoms will not be completely eliminated by medications. The patient has been instructed as to the type of medication prescribed along with directions for use. Potential side effects have been discussed, along with risks and benefits of taking this medication. She was instructed what to do if she experiences side effects, including when to discontinue the medication and was advised to call this office in this event. Prescription refills: Medications refilled for 2 months with out changes. Medication changes are as follows none [email or web address] Not available 04/09/2025 08:32:46 Plan of Treatment Reminders Order Date Submit Date Provider Last Modified By Organization Details Last Modified Time Details Appointments Office Visit15 2024 08:15A M Trina Mcduffie, REIKI PRACTITIONER Not available Not available Not available Lab drug screen, urine - Meds: 2024 025 IFEANYI Garcia MD [facility] (In House Lab), [address] [place] [address], [id number], 04/19/2025 11:44:00 CBC w/ auto diff 2024 025 [email or web address] Roseline Garcia MD [facility] ([facility] House [facility]), [address] [place] [address], [id number], 04/17/2025 08:58:40 hepatic function panel, serum 2024 025 [email or web address] Roseline Garcia MD [facility] (In House [facility]), [address] [place] [address], [id number], 04/30/2025 07:24:29 gamma-glu tamyl transfera se (ggt), serum 2024 025 [email or web address] Garcia MD [facility] (In House [facility]), [address] [place] [address], [id number], 04/17/2025 08:58:40 venipunct ure 2024 025 bela Garcia MD [facility] (In House Lab), [address], [place], [address], 04/30/2025 07:24:29 drug screen, urine - Meds: HYDROCODO NE GABAPENTI N AND PROMETHAZ INE ARLENE 2024 025 IFEANYI Garcia MD [facility] (In House [facility]), [address], [place], [address], 12/19/2024 16:42:59 drug screen, urine - Meds: GABAPENTI N, HYDROCODO NE SB 2023 024 IFEANYI Garcia MD [facility] (In House [facility]), [address], [place], [address], 10/03/2024 10:44:29 CBC w/ auto diff 2023 024 amber Garcia MD [facility] (In House Lab), [facility] [address], [place], [address], 08/25/2024 09:32:42 hepatic function panel, serum 2023 024 bela Garcia MD [facility] (In House [facility]), [address], [place], [id number], 09/08/2024 09:05:07 gamma-glu tamyl transfera se (ggt), serum 2023 024 amber Garcia MD [facility] (In House Lab), [address] [place], [address], 08/25/2024 09:32:42 venipunct ure 2023 024 bela Garcia MD [facility] (In House Lab), [facility], [place], [address], 09/08/2024 09:05:07 Referral None recorded. Procedures None recorded. Surgeries None recorded. Imaging None recorded. Medication Orders gabapenti n [address] [facility], [address] [place] [address], [id number], 05/15/2025 09:44:35 hydrocodo ne 7.5 mg-acetam inophen [address] [facility], [address] [place] [address], [id number], 04/13/2025 09:46:46 hydrocodo ne 7.5 mg-acetam inophen [address] [facility], [address] [place] [address], [id number], 04/17/2025 15:22:05 gabapenti n 600 mg tablet [address] [facility], [address] [place] [address], [id number], 03/16/2025 10:04:46 hydrocodo ne 7.5 mg-acetam inophen 325 [address] [facility], [address] [place] [address], [id number], 02/14/2025 10:20:27 hydrocodo ne 7.5 mg-acetam inophen 325 [address] [facility], [address] [place] [address], [id number], 03/16/2025 10:04:45 gabapenti n 600 mg tablet [address] [facility], [address] [place] [address], [id number], 12/12/2024 14:22:37 hydrocodo ne 7.5 mg-acetam inophen [address] [facility], [address] [place], [place], [id number], 12/12/2024 14:22:38 hydrocodo ne 7.5 mg-acetam inophen 325 mg tablet 2024 025 [facility], [address] [place], [place], [id number], 12/12/2024 14:22:37 gabapenti n 600 mg tablet 2023 024 [place] [address] [facility], [address] [place], [place], [id number], 09/28/2024 10:30:38 promethaz ine 25 mg tablet 2023 024 [facility], [address] [place] [address], [id number], 09/27/2024 20:25:30 hydrocodo ne 7.5 mg-acetam inophen 325 mg tablet 2023 024 [place] [address] [facility], [facility] [place], [place], [id number], 09/28/2024 10:30:38 hydrocodo ne 7.5 mg-acetam inophen 325 mg tablet 2023 024 [place] [address] [facility], [facility] [place], [place], [id number], 09/28/2024 10:30:39 gabapenti n 600 mg tablet 2023 024 [facility], [address] [place], [place], [id number], 08/22/2024 16:58:10 hydrocodo ne 7.5 mg-acetam inophen 325 mg tablet 2023 024 [facility], [address] [place] [address], [id number], 08/22/2024 16:57:58 hydrocodo ne 7.5 mg-acetam inophen 325 mg tablet 2023 024 [email or web address] [facility], [address] [place] [address], [id number], 08/22/2024 16:57:46 Patient TargetsNo targets recorded. Patient Instructions Encounter Date Encounter Id Patient Instructions Last Modified By Organization Details Last Modified Time 08/18/2024 [id number] 1) Pain management: Will cont pain meds as Rx'ed. Patient was asked about any other scripts needing to be sent in and scripts sent if needed 2) PT: Cont HEP as tolerated; Encourage use of Moist Heat, Massage, Acupressure, Acupuncture, Meditation and /or Pool therapy to aid pain management 3) BH: Cont with local BH as planned; Encourage Activity in Moderation with Rest Breaks 4) IP: Pt not interested in IP tx's at this time [email or web address] Not available 08/18/2024 10:48:58 Patient seen today incident to a physician s previously established diagnosis and plan of care. Follow-up care provided today under the plan of care of: Eloise Valles MD and supervision of: Eloise Valles MD Discussed goals of treatment are to reduce the major symptoms, including chronic widespread pain, fatigue, insomnia, and cognitive dysfunction. Patient educated on disease, treatment approaches, good sleep practices, and importance of treating comorbidities that contribute to symptoms. Discussed importance of exercise program. [email or web address] Not available 08/18/2024 10:48:59 09/27/2024 [id number] 1) Pain management: Will cont pain meds as Rx'ed. Patient was asked about any other scripts needing to be sent in and scripts sent if needed 2) PT: Cont HEP as tolerated; Encourage use of Moist Heat, Massage, Acupressure, Acupuncture, Meditation and /or Pool therapy to aid pain management 3) BH: Cont with local BH as planned; Encourage Activity in Moderation with Rest Breaks 4) IP: Pt not interested in IP tx's at this time [email or web address] Not available 09/27/2024 15:04:43 Patient seen today incident to a physician s previously established diagnosis and plan of care. Follow-up care provided today under the plan of care of: Eloise Valles MD and supervision of: Eloise Valles MD Discussed goals of treatment are to reduce the major symptoms, including chronic widespread pain, fatigue, insomnia, and cognitive dysfunction. Patient educated on disease, treatment approaches, good sleep practices, and importance of treating comorbidities that contribute to symptoms. Discussed importance of exercise program. [email or web address] Not available 09/27/2024 15:04:49 12/11/2024 [id number] 1) Pain management: Will cont pain meds as Rx'ed. Patient was asked about any other scripts needing to be sent in and scripts sent if needed 2) PT: Cont HEP as tolerated; Encourage use of Moist Heat, Massage, Acupressure, Acupuncture, Meditation and /or Pool therapy to aid pain management 3) BH: Cont with local BH as planned; Encourage Activity in Moderation with Rest Breaks 4) IP: Pt not interested in IP tx's at this time msentelle Not available 12/11/2024 08:53:08 Patient seen today incident to a physician s previously established diagnosis and plan of care. Follow-up care provided today under the plan of care of: Eloise Valles MD and supervision of: Jorge Garcia MD Discussed goals of treatment are to reduce the major symptoms, including chronic widespread pain, fatigue, insomnia, and cognitive dysfunction. Patient educated on disease, treatment approaches, good sleep practices, and importance of treating comorbidities that contribute to symptoms. Discussed importance of exercise program. [email or web address] Not available 12/11/2024 08:55:26 02/09/2025 [id number] 1) Pain management: Will cont pain meds as Rx'ed. Patient was asked about any other scripts needing to be sent in and scripts sent if needed 2) PT: Cont HEP as tolerated; Encourage use of Moist Heat, Massage, Acupressure, Acupuncture, Meditation and /or Pool therapy to aid pain management 3) BH: Cont with local BH as planned; Encourage Activity in Moderation with Rest Breaks 4) IP: Pt not interested in IP tx's at this time msentelle Not available 02/09/2025 08:27:15 Patient seen today incident to a physician s previously established diagnosis and plan of care. Follow-up care provided today under the plan of care of: Eloise Valles MD and supervision of: Eloise Valles MD Discussed goals of treatment are to reduce the major symptoms, including chronic widespread pain, fatigue, insomnia, and cognitive dysfunction. Patient educated on disease, treatment approaches, good sleep practices, and importance of treating comorbidities that contribute to symptoms. Discussed importance of exercise program. [email or web address] Not available 02/09/2025 08:29:50 04/09/2025 [id number] 1) Pain management: Will cont pain meds as Rx'ed. Patient was asked about any other scripts needing to be sent in and scripts sent if needed 2) PT: Cont HEP as tolerated; Encourage use of Moist Heat, Massage, Acupressure, Acupuncture, Meditation and /or Pool therapy to aid pain management 3) BH: Cont with local BH as planned; Encourage Activity in Moderation with Rest Breaks 4) IP: Pt not interested in IP tx's at this time msentelle Not available 04/09/2025 08:29:07 Patient seen today incident to a physician s previously established diagnosis and plan of care. Follow-up care provided today under the plan of care of: Eloise Valles MD and supervision of: Jorge Garcia MD Discussed goals of treatment are to reduce the major symptoms, including chronic widespread pain, fatigue, insomnia, and cognitive dysfunction. Patient educated on disease, treatment approaches, good sleep practices, and importance of treating comorbidities that contribute to symptoms. Discussed importance of exercise program. [email or web address] Not available 04/09/2025 08:40:12 Reason for Referral None Reported. Results Created Date Observation Date Name Description Value Unit Range Abnormal Flag Note LastModifiedBy Organization Detail LastModifiedTime 09/27/20 24 09/27/2024 OPIAT E CONFI RMATI ON,UR abnormal status abnormal Not Available Jessica Garcia MD [facility] ([facility] House [facility]) [address] [place], [address], 10/03/2024 10:44:31 09/27/20 24 10/02/2024 GABAP ENTIN (NEUR ONTIN ) , URINE gabapentin Commen t >1000 .0 This test was devel ubaldo and its perfo rmanc e bryon cteri stics deter mined by [facility]. It has not been clear ed or appro nickie by the Food and Drug Admin istra tion. Not Available Roseline Garcia MD [facility] ([facility]) [address] [place], [address], 10/03/2024 10:44:30 09/27/20 24 09/27/2024 UDM [facility] RP-U1 0 UNBUN D+ALC +SVT please note: Commen t Drug test resul ts shoul d be inter prete d in the chuck xt of clini tera suyapar edith zhang. Patie nt metab olic varia bles, speci fic drug chemi stry, and speci men bryon cteri stics can affec t test outco me. Techn ical consu ltati on is avail able if a test resul t is incon siste nt with an expec dustin outco me. Email : [email or web address] m Phone : [phone] . Drug brand s, if liste d herei n, are trade mina of their respe ctive world renowned chef and restaurant owner s. Not Available Roseline Garcia MD [facility] (In House [facility]) [address] [place] [address], [id number], 10/03/2024 10:44:29 09/27/20 24 09/28/2024 UD [facility] RP-U1 0 UNBUN D+ALC +SVT amphetamines screen, urine Negati ve NG/mL cutoff =1000 Not Available Roseline Garcia MD [facility] (In House [facility]) [address] [place] [address], [id number], 10/03/2024 10:44:29 09/27/20 24 09/28/2024 UD [facility] RP-U1 0 UNBUN D+ALC +SVT barbiturates screen, urine Negati ve NG/mL cutoff =200 Not Available Roseline Garcia MD [facility] (In House [facility]) [address] [place] [address], [id number], 10/03/2024 10:44:29 09/27/20 24 09/28/2024 UDM [facility] RP-U1 0 UNBUN D+ALC +SVT benzodiazepi sloane screen, urine Negati ve NG/mL cutoff =200 Not Available Roseline Garcia MD [facility] (In House [facility]) [address] [place] [address], [id number], 10/03/2024 10:44:29 09/27/20 24 09/28/2024 UDM [facility] RP-U1 0 UNBUN D+ALC +SVT cannabinoid screen, urine Negati ve NG/mL cutoff =20 Not Available Roseline Garcia MD [facility] ([facility]) [address] [place] [address], [id number], 10/03/2024 10:44:29 09/27/20 24 09/28/2024 UDM [facility] RP-U1 0 UNBUN D+ALC +SVT cocaine (metab.) screen, urine Negati ve NG/mL cutoff =300 Not Available Roseline Garcia MD [facility] (In House [facility]) [address] [place] [address], [id number], 10/03/2024 10:44:29 09/27/20 24 09/28/2024 UDM [facility] RP-U1 0 UNBUN D+ALC +SVT opiate screen, urine See Final Result s NG/mL cutoff =300 Opiat e test inclu antione Codei ne, Morph ine, [place] morph one, [place] codon e. Not Available Roseline Garcia MD [facility] ([facility]) [address] [place] [address], [id number], 10/03/2024 10:44:29 09/27/20 24 09/28/2024 UDM [facility] RP-U1 0 UNBUN D+ALC +SVT 6-acetylmorp kelsy, urine Negati ve NG/mL cutoff =10 Not Available Roseline Garcia MD [facility] ([facility]) [address] [place] [address], [id number], 10/03/2024 10:44:29 09/27/20 24 09/28/2024 UDM [facility] RP-U1 0 UNBUN D+ALC +SVT oxycodone/ox ymorphone, urine Negati ve NG/mL cutoff =100 Test inclu antione Oxyco done and Oxymo rphon e Not Available Roseline Garcia MD [facility] ([facility]) [address] [place] [address], [id number], 10/03/2024 10:44:29 09/27/20 24 09/28/2024 UDM [facility] RP-U1 0 UNBUN D+ALC +SVT methadone screen, urine Negati ve NG/mL cutoff =300 Not Available Roseline Garcia MD [facility] (In House [facility]) [address] [place] [address], [id number], 10/03/2024 10:44:29 09/27/20 24 09/28/2024 UDM [facility] RP-U1 0 UNBUN D+ALC +SVT buprenorphin e, urine Negati ve NG/mL cutoff =10 Not Available Roseline Garcia MD [facility] (In House [facility]) [address] [place] [address], [address], 10/03/2024 10:44:29 09/27/20 24 09/28/2024 UDM [facility] RP-U1 0 UNBUN D+ALC +SVT ethanol, urine Negati ve mg/dL cutoff =0.020 Not Available Rosleine Garcia MD [facility] (In House [facility]) [address] [place] [address], [id number], 10/03/2024 10:44:29 09/27/20 24 09/28/2024 UDM [facility] RP-U1 0 UNBUN D+ALC +SVT creatinine, urine 78.4 mg/dL 20.0-3 00.0 Not Available Roseline Garcia MD [facility] (In House [facility]) [address] [place] [address], [id number], 10/03/2024 10:44:29 09/27/20 24 09/28/2024 UDM [facility] RP-U1 0 UNBUN D+ALC +SVT pH, urine 5.7 4.5-8. 9 Not Available Roseline Garcia MD [facility] ([facility]) [address] [place] [address], [id number], 10/03/2024 10:44:29 12/11/19 25 12/11/2024 OPIAT E CONFI RMATI ON,UR abnormal status abnormal Not Available Jessica Garcia MD [facility] ([facility]) [address] [place] [address], [place], [address], 12/19/2024 16:43:01 12/11/19 25 12/19/2024 GABAP ENTIN (NEUR ONTIN ) , URINE gabapentin 685.3 ug/mL This test was devel oped and its perfo rmanc e bryon cteri stics deter mined by [facility]. It has not been clear ed or appro nickie by the Food and Drug Admin istra tion. Not Available Roseline Garcia MD [facility] (In House [facility]) [address] [facility], [place], [address], 12/19/2024 16:43:00 12/11/19 25 12/11/2024 UD [facility] RP-U1 0 UNBUN D+ALC +SVT please note: Commen t Drug test resul ts shoul d be inter prete d in the chuck xt of clini tera infor matalee n. Patie nt metab olic varia bles, speci fic drug chemi stry, and speci men bryon cteri stics can affec t test outco me. Techn ical consu ltati on is avail able if a test resul t is incon siste nt with an expec dustin outco me. Email : [email or web address] Phone : [phone] . Drug brand s, if liste d herei n, are trade mina of their respe ctive world renowned chef and restaurant owner s. Not Available Roseline Garcia MD [facility] (In House [facility]) [address] [facility], [place], [address], 12/19/2024 16:42:59 12/11/19 25 12/12/2024 UD [facility] RP-U1 0 UNBUN D+ALC +SVT amphetamines screen, urine Negati ve NG/mL cutoff =1000 Not Available Roseline Garcia MD [facility] (In House Lab) [address] [place], [address], 12/19/2024 16:42:59 12/11/19 25 12/12/2024 UD LABCO RP-U1 0 UNBUN D+ALC +SVT barbiturates screen, urine Negati ve NG/mL cutoff =200 Not Available Roseline Garcia MD [facility] (In House Lab) [address] [place] [address], [id number], 12/19/2024 16:42:59 12/11/19 25 12/12/2024 UDM LABCO RP-U1 0 UNBUN D+ALC +SVT benzodiazepi sloane screen, urine Negati ve NG/mL cutoff =200 Not Available Roseline Garcia MD [facility] (In House Lab) [address] [place] [address], [id number], 12/19/2024 16:42:59 12/11/19 25 12/12/2024 UDM LABCO RP-U1 0 UNBUN D+ALC +SVT cannabinoid screen, urine Negati ve NG/mL cutoff =20 Not Available Roseline Garcia MD [facility] (In House Lab) [address] [place] [address], [id number], 12/19/2024 16:42:59 12/11/19 25 12/12/2024 UDM LABCO RP-U1 0 UNBUN D+ALC +SVT cocaine (metab.) screen, urine Negati ve NG/mL cutoff =300 Not Available Roseline Garcia MD [facility] (In House Lab) [address] [place] [address], [id number], 12/19/2024 16:42:59 12/11/19 25 12/12/2024 UDM LABCO RP-U1 0 UNBUN D+ALC +SVT opiate screen, urine See Final Result s NG/mL cutoff =300 Opiat e test inclu antione Codei ne, Morph ine, [place] morph one, [place] codon e. Not Available Roseline Garcia MD [facility] (In House Lab) [address] [place] [address], [id number], 12/19/2024 16:42:59 12/11/19 25 12/12/2024 UDM LABCO RP-U1 0 UNBUN D+ALC +SVT 6-acetylmorp kelsy, urine Negati ve NG/mL cutoff =10 Not Available Roseline Garcia MD [facility] (In House Lab) [address] [place], [address], 12/19/2024 16:42:59 12/11/19 25 12/12/2024 UDM LABCO RP-U1 0 UNBUN D+ALC +SVT oxycodone/ox ymorphone, urine Negati ve NG/mL cutoff =100 Test inclu antione Oxyco done and Oxymo rphon e Not Available Roseline Garcia MD [facility] (In House Lab) [address] [place] [address], [id number], 12/19/2024 16:42:59 12/11/19 25 12/12/2024 UDM LABCO RP-U1 0 UNBUN D+ALC +SVT methadone screen, urine Negati ve NG/mL cutoff =300 Not Available Roseline Garcia MD [facility] (In House Lab) [address] [place] [address], [id number], 12/19/2024 16:42:59 12/11/19 25 12/12/2024 UDM LABCO RP-U1 0 UNBUN D+ALC +SVT buprenorphin e, urine Negati ve NG/mL cutoff =10 Not Available Roseline Garcia MD [facility] (In House Lab) [address] [place] [address], [id number], 12/19/2024 16:42:59 12/11/19 25 12/12/2024 UDM LABCO RP-U1 0 UNBUN D+ALC +SVT ethanol, urine Negati ve mg/dL cutoff =0.020 Not Available Roseline Garcia MD [facility] (In House Lab) [address] [place] [address], [id number], 12/19/2024 16:42:59 12/11/19 25 12/12/2024 UDM LABCO RP-U1 0 UNBUN D+ALC +SVT creatinine, urine 85.4 mg/dL 20.0-3 00.0 Not Available Roseline Garcia MD [facility] (In House Lab) [address] [place] [address], [id number], 12/19/2024 16:42:59 12/11/19 25 12/12/2024 UDM LABCO RP-U1 0 UNBUN D+ALC +SVT pH, urine 6.6 4.5-8. 9 Not Available Roseline Garcia MD [facility] (In House Lab) [address] [facility], [place], [address], 12/19/2024 16:42:59 04/09/20 25 04/09/2025 OPIAT E CONFI RMATI ON,UR abnormal status abnormal Not Available Jessica Garcia MD [facility] (In House Lab) [address] [facility], [place], [address], 04/19/2025 11:44:01 04/09/20 25 04/19/2025 GABAP ENTIN (NEUR ONTIN ) , URINE gabapentin 566.3 ug/mL This test was devdeana conner and its perfo rmanc e bryon cteri stics deter mined by [employer]. It has not been clear ed or appro nickie by the Food and Drug Admin istra tion. Not Available Roseline Garcia MD [facility] (In House Lab) [address] [facility], [place], [address], 04/19/2025 11:44:01 04/09/20 25 04/09/2025 UD LABCO RP-U1 0 UNBUN D+ALC +SVT please note: Commen t Drug test resul ts shoul d be inter prete d in the chuck xt of clini tera infor matio n. Patie nt metab olic varia bles, speci fic drug chemi stry, and speci men bryon cteri stics can affec t test outco me. Techn ical consu ltati on is avail able if a test resul t is incon siste nt with an expec dustin outco me. Email : [email or web address] caldr [email or web address] Phone : [phone] . Drug brand s, if liste d herei n, are trade mina of their respe ctive world renowned chef and restaurant owner s. Not Available Roseline Garcia MD [facility] (In House Lab) [address] [place], [address], 04/19/2025 11:44:00 04/09/20 25 04/10/2025 UDM LABCO RP-U1 0 UNBUN D+ALC +SVT amphetamines screen, urine Negati ve NG/mL cutoff =1000 Not Available Roseline Garcia MD [facility] (In House Lab) [address] [place] [address], [address], 04/19/2025 11:44:00 04/09/20 25 04/10/2025 UDM LABCO RP-U1 0 UNBUN D+ALC +SVT barbiturates screen, urine Negati ve NG/mL cutoff =200 Not Available Roseline Garcia MD [facility] (In House Lab) [address] [place] [address], [address], 04/19/2025 11:44:00 04/09/20 25 04/10/2025 UDM LABCO RP-U1 0 UNBUN D+ALC +SVT benzodiazepi sloane screen, urine Negati ve NG/mL cutoff =200 Not Available Roseline Garcia MD [facility] (In House Lab) [address] [place] [address], [address], 04/19/2025 11:44:00 04/09/20 25 04/10/2025 UDM LABCO RP-U1 0 UNBUN D+ALC +SVT cannabinoid screen, urine Negati ve NG/mL cutoff =20 Not Available Roseline Garcia MD [facility] (In House Lab) [address] [place] [address], [address], 04/19/2025 11:44:00 04/09/20 25 04/10/2025 UDM LABCO RP-U1 0 UNBUN D+ALC +SVT cocaine (metab.) screen, urine Negati ve NG/mL cutoff =300 Not Available Roseline Garcia MD [facility] (In House Lab) [address] [place] [address], [id number], 04/19/2025 11:44:00 04/09/20 25 04/10/2025 UDM LABCO RP-U1 0 UNBUN D+ALC +SVT opiate screen, urine See Final Result s NG/mL cutoff =300 Opiat e test inclu antione Codei ne, Morph ine, [place] morph one, [place] codon e. Not Available Roseline Garcia MD [facility] (In House Lab) [address] [place] [address], [address], 04/19/2025 11:44:00 04/09/20 25 04/10/2025 UDM LABCO RP-U1 0 UNBUN D+ALC +SVT 6-acetylmorp kelsy, urine Negati ve NG/mL cutoff =10 Not Available Roseline Garcia MD [facility] (In House Lab) [address] [place] [address], [address], 04/19/2025 11:44:00 04/09/20 25 04/10/2025 UDM LABCO RP-U1 0 UNBUN D+ALC +SVT oxycodone/ox ymorphone, urine Negati ve NG/mL cutoff =100 Test inclu antione Oxyco done and Oxymo rphon e Not Available Roseline Garcia MD [facility] (In House Lab) [address] [place] [address], [address], 04/19/2025 11:44:00 04/09/20 25 04/10/2025 UDM LABCO RP-U1 0 UNBUN D+ALC +SVT methadone screen, urine Negati ve NG/mL cutoff =300 Not Available Roseline Garcia MD [facility] (In House Lab) [address] [place] [address], [address], 04/19/2025 11:44:00 04/09/20 25 04/10/2025 UDM LABCO RP-U1 0 UNBUN D+ALC +SVT buprenorphin e, urine Negati ve NG/mL cutoff =10 Not Available Roseline Garcia MD [facility] (In House Lab) [address] [place] [address], [address], 04/19/2025 11:44:00 04/09/20 25 04/10/2025 UDM LABCO RP-U1 0 UNBUN D+ALC +SVT ethanol, urine Negati ve mg/dL cutoff =0.020 Not Available Roseline Garcia MD [facility] (In House Lab) [address] [place], [address], 04/19/2025 11:44:00 04/09/20 25 04/10/2025 UDM LABCO RP-U1 0 UNBUN D+ALC +SVT creatinine, urine 40.8 mg/dL 20.0-3 00.0 Not Available Roseline Garcia MD [facility] (In House Lab) [address] [place], [address], 04/19/2025 11:44:00 04/09/20 25 04/10/2025 UDM LABCO RP-U1 0 UNBUN D+ALC +SVT pH, urine 7.2 4.5-8. 9 Not Available Roseline Garcia MD [facility] (In House Lab) [address] [place], [address], 04/19/2025 11:44:00 Result Notes None recorded. Problems Name Problem SNOMED Code Status Onset Date Resolution Date Notes Provider Name and Address Organization Details Recorded Time Opioid dependenc e 53409340 Active 2018 (F11.20)O pioid dependenc e, uncomplic ated Not Available [facility] 2 22:14:48 Pain of left shoulder joint 99112040790 649349 Active 2019 (M25.512) Pain in left shoulder Not Available [facility] 2 22:14:49 Cervical spondylos is without myelopath y 569443063 Active 2018 (M47.812) Spondylos is without myelopath y or radiculop athy, cervical region Not Available [facility] 2 22:14:49 Spondylos is without myelopath y 26669690 Active 2018 (M47.816) Spondylos is without myelopath y or radiculop athy, lumbar region Not Available [facility] 2 22:14:49 Fibromyal gigi 731041109 Active 2018 (M79.7)Laurel velasquez a Not Available [facility] 2 22:14:49 Long-term current use of opiate analgesic drug 66284826102 4108 Active 2018 (Z79.891) residential (current) use of opiate analgesic Not Available [facility] 2 22:14:49 Current drug user 774651827 Active 2018 (Z79.899) Other alf (current) drug therapy Not Available [facility] 2 22:14:49 Problem Notes None recorded. Medical Equipment None Reported. Allergies Allergen ID Allergen Name Allergen Category Reaction Reaction Severity Criticality Documentation Date Start Date Code Code System Note Provider Name and Address Organization Details Recorded Time Product containin g penicilli n (product) medicatio n Not available Not available Not available 03/24/20222018 62524 8001 SNOMED Not Available [facility] 2 22:01:05 66299 amoxicill in medicatio n Not available Not available Not available 03/24/20222018 723 RxNorm Not Available [facility] 2 22:01:05 13722 PPD black rubber mix environme nt Not available Not available Not available 03/24/20222018 22686 UNK TB SKIN TEST. CHEST TIGHT NESS Not Available [facility] 2 22:01:05 Medications Name Sig Start Date Stop Date Status Note LastModified by Organization Details LastModified Time Neuropathic Pain Cream 3 Apply 1-2 grams to the affected ardea 3-4 times daily 2023 active Not Available Not Available Not Avai lable cyclobenzap rine 10 mg tablet TAKE 1 TABLET BY MOUTH THREE TIMES A DAY NEEDED FOR MUSCLE SPASMS 10/28 completed Not Available Not Available Not Available prednisone 10 mg tablet AFTER 20MG IS COMPLETE, TAKE 1 TABLET BY MOUTH DAILY FOR 3 DAYS 11/05 completed Not Available Not Available Not Available gabapentin 600 mg tablet TAKE 1 TABLET BY MOUTH FOUR TIMES A DAY active Not Available Not Available No t Available clindamycin HCl 300 mg capsule TAKE 1 CAPSULE BY MOUTH EVERY 8 HOURS active Not Available Not Available No t Available cetirizine 10 mg tablet TAKE 1 TABLET(10 mg) orally daily active Not Available Not Available No t Available oxybutynin chloride ER 10 mg tablet,exte nded release 24 hr take 1 tablet(10 mg) orally daily for 30 days active Not Available Not Available No t Available azithromyci n 250 mg tablet TAKE 2 TABLETS BY MOUTH TODAY, THEN TAKE 1 TABLET DAILY FOR 4 DAYS DIRECTED active Not Available Not Available No t Available metoprolol succinate ER 50 mg tablet,exte nded release 24 hr TAKE ONE TABLET BY MOUTH DAILY 11/05 completed Not Available Not Available Not Available clarithromy levy 500 mg tablet TAKE 1 TABLET BY MOUTH TWICE A DAY FOR 14 DAYS 11/05 completed Not Available Not Available Not Available hydrocodone 5 mg-acetamin ophen 325 mg tablet Take 1 twice daily 09/19 completed old rx Not Available Not Available Not Available ondansetron HCl 4 mg tablet TAKE 1 TABLET BY MOUTH EVERY 8 HOURS NEEDED FOR NAUSEA AND VOMITING 11/05 completed Not Available Not Available Not Available prednisone 20 mg tablet TAKE 1 TABLET TWICE DAILY FOR 3 DAYS THEN TAKE 1 TABLET ONCE DAILY FOR 3 DAYS, THEN START 10MG TAB 11/05 completed Not Available Not Available Not Available metronidazo le 500 mg tablet TAKE 1 TABLET BY MOUTH TWICE A DAY FOR 14 DAYS 11/05 completed Not Available Not Available Not Available trimethopri m 100 mg tablet take 1 tablet(10 0 mg) orally daily active Not Available Not Available No t Available sulfamethox azole 800 mg-trimetho prim 160 mg tablet active Not Available Not Available Not Available losartan 100 mg-hydrochl orothiazide 25 mg tablet TAKE 1 TABLET BY MOUTH EVERY DAY active Not Available Not Available No t Available benzonatate 100 mg capsule TAKE 1 CAPSULE BY MOUTH THREE TIMES A DAY NEEDED FOR COUGH active Not Available Not Available No t Available hydrocodone 7.5 mg-acetamin ophen 325 mg tablet Take 1 tablet 4 times a day as needed 2024 active Not Available Not Available Not Avai lable lansoprazol e 30 mg capsule,del ayed release take 1 capsule(3 0 MG) orally daily active Not Available Not Available No t Available promethazin e 25 mg tablet Take 1 tablet every 4 hours by oral route. active Not Available Not Available No t Available furosemide 20 mg tablet TAKE 1 TABLET BY MOUTH EVERY DAY 11/05 completed Not Available Not Available Not Available lisinopril 10 mg-hydrochl orothiazide 12.5 mg tablet Take 1 daily 11/05 completed Not Available Not Available Not Available levofloxaci n 500 mg tablet TAKE 1 TABLET BY MOUTH EVERY DAY 11/05 completed Not Available Not Available Not Available estradiol 0.01% (0.1 mg/gram) vaginal cream apply 1 appful vaginally daily for 30 days; Use finger technique daily x 2 weeks and then three times weekly alf. active Not Available Not Available No t Available methylpredn isolone 4 mg tablets in a dose pack TAKE DIRECTED DAILY ON package FOR SIX DAYS active Not Available Not Available No t Available albuterol sulfate HFA 90 mcg/actuati on aerosol inhaler INHALE 2 PUFFS EVERY 8 HOURS NEEDED active Not Available Not Available No t Available Vitamin D2 1,250 mcg (50,000 unit) capsule TAKE 1 CAPSULE BY MOUTH ONE TIME PER WEEK active Not Available Not Available No t Available cefdinir 300 mg capsule active Not Available Not Available Not Available fluticasone propionate 50 mcg/actuati on nasal spray,suspe nsion USE 1 SPRAY IN EACH NOSTRIL DAILY active Not Available Not Available No t Available loratadine 10 mg tablet TAKE 1 TABLET BY MOUTH EVERY DAY active Not Available Not Available No t Available naproxen 500 mg tablet TAKE 1/2 TABLET BY MOUTH TWICE A DAY active Not Available Not Available No t Available rosuvastati n 20 mg tablet TAKE 1 TABLET BY MOUTH EVERY DAY FOR CHOLESTER OL active Not Available Not Available No t Available nitrofurant oin monohydrate /macrocryst als 100 mg capsule take 1 capsule(1 00 mg) orally twice a day for 5 days; must administe r with a meal/food active Not Available Not Available No t Available Symbicort 160 mcg-4.5 mcg/actuati on HFA aerosol inhaler inhale 2 puffs twice a day active Not Available Not Available No t Available Symbicort 80 mcg-4.5 mcg/actuati on HFA aerosol inhaler INHALE 1 PUFF TWICE A DAY active Not Available Not Available No t Available cholecalcif jose m (vitamin D3) 1,250 mcg (50,000 unit) capsule TAKE 1 CAPSULE BY MOUTH ONE TIME PER WEEK 12/15 /2022 completed Not Available Not Available Not Available Voltaren 1 % topical gel 3-4 times topical use daily 07/18 completed old rx Not Available Not Available Not Available Breo Ellipta 100 mcg-25 mcg/dose powder for inhalation INHALE 1 PUFF INTO THE LUNGS ONCE DAILY active Not Available Not Available No t Available Ozempic 0.25 mg or 0.5 mg (2 mg/1.5 mL) subcutaneou s pen injector INJECT 0.25 MG UNDER THE SKIN WEEKLY FOR 4 WEEKS, THEN 0.5 MG WEEKLY active Not Available Not Available No t Available Gemtesa 75 mg tablet take 1 tablet(75 mg) orally daily active Not Available Not Available No t Available Ozempic 0.25 mg or 0.5 mg (2 mg/3 mL) subcutaneou s pen injector INJECT 0.5 mg (0.736 mL) subcutane ously weekly active Not Available Not Available No t Available Vitals Date Recorded Body height Respiratory rate Body mass index (BMI) Body weight Body temperature Heart rate Systolic blood pressure Diastolic blood pressure Provider Name and Address Organization Details Last Updated DateTime 5 157.48 cm 16 /min 22.9 kg/m2 50077.0 5 g 98 [degF] 71 /min 125 mm[Hg] 65 mm[Hg] [facility] 5 07:45:17 Date Recorded Body height Body mass index (BMI) Body weight Body temperature Respiratory rate Heart rate Systolic blood pressure Diastolic blood pressure Provider Name and Address Organization Details Last Updated DateTime 5 157.48 cm 24.1 kg/m2 89732.1 9 g 97.9 [degF] 16 /min 59 /min 99 mm[Hg] 61 mm[Hg] Griffin [facility] 5 07:56:23 Date Recorded Body height Body mass index (BMI) Body weight Body temperature Heart rate Respiratory rate Systolic blood pressure Diastolic blood pressure Provider Name and Address Organization Details Last Updated DateTime 5 157.48 cm 24.7 kg/m2 88407.9 7 g 97.6 [degF] 67 /min 16 /min 132 mm[Hg] 72 mm[Hg] Griffin Josuecarlota [facility] 5 07:55:10 Date Recorded Body height Respiratory rate Heart rate Body mass index (BMI) Body weight Systolic blood pressure Diastolic blood pressure Provider Name and Address Organization Details Last Updated DateTime 4 157.48 cm 16 /min 75 /min 24.7 kg/m2 94583.9 7 g 103 mm[Hg] 49 mm[Hg] [facility] 4 10:24:42 Date Recorded Body height Body mass index (BMI) Body weight Respiratory rate Body temperature Heart rate Systolic blood pressure Diastolic blood pressure Provider Name and Address Organization Details Last Updated DateTime 4 157.48 cm 24.5 kg/m2 45181.3 8 g 16 /min 98.2 [degF] 67 /min 126 mm[Hg] 68 mm[Hg] [facility] 4 14:30:46 Social History Question Answer Notes LastModified by Organizat ion Details LastModified Time Tobacco Smoking Status Current Every Day Smoker [facility] 05/14/2022 10:16:02 What Is Your Level Of Caffeine Consumption? Occasional 2 CUPS OF COFFEE Information not available 05/14/2022 How Much Tobacco Do You Smoke? 0.5 PPD Information not available 05/14/2022 How Many Years Have You Smoked Tobacco? 29 Information not available 05/14/2022 Sex: Unknown Functional Status Question Answer Note LastModified by Organization D etails LastModified Time What is your level of alcohol consumption? None Information not available 05/14/2022 What is your occupation? Disabled [id number] Information not available 03/24/2022 Mental Status None recorded. Family History Nothing Reported Notes:Mother: due t o cancer Father: due to suicide sibling(s) : Patient's sibling's medical history is unremarkable. Medical History No medical history recorded. Gynecological HistoryNo gynecological history recorded. Obstetrics History GPAL:G 0 P 0 0 0 0 Immunizations Vaccine Type Date Status Note Provider Trino veronica and Address Organization Details Recorded Time COVID-19, mRNA, LNP-S, PF, 30 mcg/0.3 mL dose 05/14/2022 [place] [facility] 05/14/2022 10:15:29 Past Encounters Encounter ID Performer Location Encounter Start Date Encounter Closed Date Diagnosis/Indication Diagnosis SNOMED-CT Code Diagnosis ICD10 Code Diagnosis Note [id number] Ally Henry, [employer]IKI [employer]ACTITIONER [address] [address] 05/14/2022 10:03:28 05/15/2022 15:31:04 Spondylosis without myelopathy 84976927 M47.816 Cervical s pondylosis without myelopathy 480892715 M47.812 Fibromyalgia 675727289 M 79.7 [id number] Ally Henry, [employer]IK[employer]ACTITIONER [address] [place] [address] 07/14/2022 09:10:49 07/16/2022 14:52:00 Spondylosis without myelopathy 19210793 M47.816 Cervical s pondylosis without myelopathy 584742345 M47.812 Fibromyalgia 772559106 M 79.7 Long-term current use of opiate analgesic drug 5676070993 53261 Z79.891 Diagnostic /Lab: Order Presumptiv e UDT (necessary for rapid results) with Definitive confirmati on for chronic pain patient, to define treatment and reinforce therapeuti c compliance ; the following apply: [Presumpti ve UDT includes: (Amp, Rosa, Jeremy, Bup, THC, AVE, ETOH, Meth, Opi, Oxy )] *-Patient is receiving controlled medication s. *-Presumpt palmer UDT to identify presence of illicit/no n-prescrib ed substance( s) - Confirm positive for ongoing safe prescribin g of controlled substances . *-Presumpt palmer UDT to identify presence of licit/pres cribed substance( s)-Confirm unexpected results, identify specific drug(s) in large class and ensure appropriat e use of prescribed medication (s). *-Definiti ve UDT inadequate ly detected by Presumptiv e UDT (gabapenti n, pregabalin , tramadol, fentanyl, tapentadol and carisoprod ol). [id number] Ally Henry APRN [address] [address] 09/08/2022 07:36:44 09/08/2022 11:39:45 Spondylosis without myelopathy 92921513 M47.816 Cervical s pondylosis without myelopathy 524086134 M47.812 Fibromyalgia 642051624 M 79.7 Long-term current use of opiate analgesic drug 7500665300 69604 Z79.891 Diagnostic /Lab: Order Presumptiv e UDT (necessary for rapid results) with Definitive confirmati on for chronic pain patient, to define treatment and reinforce therapeuti c compliance ; the following apply:[Pre sumptive UDT includes: (Amp, Rosa, Jeremy, Bup, THC, AVE, ETOH, Meth, Opi, Oxy )]*-Patien t is receiving controlled medication s.*-Presum ptive UDT to identify presence of illicit/no n-prescrib ed substance( s) - Confirm positive for ongoing safe prescribin g of controlled substances .*-Presump tive UDT to identify presence of licit/pres cribed substance( s)-Confirm unexpected results, identify specific drug(s) in large class and ensure appropriat e use of prescribed medication (s). _*-Definit palmer UDT inadequate ly detected by Presumptiv e UDT (gabapenti n, pregabalin , tramadol, fentanyl, tapentadol and carisoprod ol). Long-term drug therapy 880007354 Z79.158 [id number] Ally Henry, [employer]IK[employer]ACTITIONER [address] [address] 11/06/2022 07:35:22 11/10/2022 09:54:49 Spondylosis without myelopathy 61600768 7.816 Cervical s pondylosis without myelopathy 578215429 M47.812 Fibromyalgia 938019463 M 79.7 Long-term drug therapy 206091454 Z79.447 [id number] Trina Mcduffie, [employer]IKI PRACTITIONER [facility] [id number] 01/08/2023 07:33:43 01/21/2023 15:29:44 Cervical spondylosis without myelopathy 701326500 M47.812 Fibromyalgia 162357185 M 79.7 Long-term current use of opiate analgesic drug 1334196343 86255 Z79.891 Pain of le ft shoulder joint 3487719469 8666387 M25.512 Spondylosi s without myelopathy 15562809 M47.785 [id number] Trina Mcduffie, [employer]IK[employer]ACTITIONER [address] [place], [place] [id number] 4 03/09/2023 07:40:14 03/12/2023 10:17:04 Fibromyalgia 894420611 M79.7 Long-term current use of opiate analgesic drug 5129763590 97783 Z79.891 HP1 (CBC/Renal /Hepatic/G GT) CBC - ordered to monitor the effects of prescribed medication s. Renal/Hepa tic/GGT - ordered to monitor toxicity of renal hepatic function due to medication . Cervical s pondylosis without myelopathy 705126729 M47.812 Pain of le ft shoulder joint 0038437331 0573075 M25.512 Spondylosi s without myelopathy 95752605 M47.816 [id number] Trina Mcduffie, [employer]IK[employer]ACTITIONER [address] [place] [address] 04/30/2023 08:16:38 04/30/2023 09:24:49 Long-term current use of opiate analgesic drug 8440841190 75583 Z79.891 Diagnostic /Lab: Order Presumptiv e UDT (necessary for rapid results) with Definitive confirmati on for chronic pain patient, to define treatment and reinforce therapeuti c compliance ; the following apply: [Presumpti ve UDT includes: (Amp, Rosa, Jeremy, Bup, THC, AVE, ETOH, Meth, Opi, Oxy )] *-Patient is receiving controlled medication s. *-Presumpt palmer UDT to identify presence of illicit/no n-prescrib ed substance( s) - Confirm positive for ongoing safe prescribin g of controlled substances . *-Presumpt palmer UDT to identify presence of licit/pres cribed substance( s)-Confirm unexpected results, identify specific drug(s) in large class and ensure appropriat e use of prescribed medication (s). *-Definiti ve UDT inadequate ly detected by Presumptiv e UDT (gabapenti n, pregabalin , tramadol, fentanyl, tapentadol and carisoprod ol). Fibromyalgia M 79.7 Cervical s pondylosis without myelopathy 186736258 M47.812 Pain of le ft shoulder joint 8663846499 7998116 M25.512 Spondylosi s without myelopathy 24322345 M47.973 [id number] Trina Mcduffie, [employer]IKI PRACTITIONER [address] [facility] [address] [place] [address] 06/30/2023 08:39:22 06/30/2023 13:17:24 Long-term current use of opiate analgesic drug [id number] Z79.891 Diagnostic /Lab: Order Presumptiv e UDT (necessary for rapid results) with Definitive confirmati on for chronic pain patient, to define treatment and reinforce therapeuti c compliance ; the following apply:[Pre sumptive UDT includes: (Amp, Rosa, Jeremy, Bup, THC, AVE, ETOH, Meth, Opi, Oxy )]*-Patien t is receiving controlled medication s.*-Presum ptive UDT to identify presence of illicit/no n-prescrib ed substance( s) - Confirm positive for ongoing safe prescribin g of controlled substances .*-Presump tive UDT to identify presence of licit/pres cribed substance( s)-Confirm unexpected results, identify specific drug(s) in large class and ensure appropriat e use of prescribed medication (s). _*-Definit palmer UDT inadequate ly detected by Presumptiv e UDT (gabapenti n, pregabalin , tramadol, fentanyl, tapentadol and carisoprod ol). Fibromyalgia 416406733 M [age] Cervical s pondylosis without myelopathy 055166196 M47.812 Pain of le ft shoulder joint 9285252368 2631733 M25.512 Spondylosi s without myelopathy 19076104 M47.240 [id number] Trina Mcduffie, REIKI PRACTITIONER [address] [place] [address] 08/27/2023 08:41:32 08/27/2023 10:00:47 Long-term current use of opiate analgesic drug [id number] 24135 Z79.891 Diagnostic /Lab: Order Presumptiv e UDT (necessary for rapid results) with Definitive confirmati on for chronic pain patient, to define treatment and reinforce therapeuti c compliance ; the following apply:[Pre sumptive UDT includes: (Amp, Rosa, Jeremy, Bup, THC, AVE, ETOH, Meth, Opi, Oxy )]*-Patien t is receiving controlled medication s.*-Presum ptive UDT to identify presence of illicit/no n-prescrib ed substance( s) - Confirm positive for ongoing safe prescribin g of controlled substances .*-Presump tive UDT to identify presence of licit/pres cribed substance( s)-Confirm unexpected results, identify specific drug(s) in large class and ensure appropriat e use of prescribed medication (s). _*-Definit palmer UDT inadequate ly detected by Presumptiv e UDT (gabapenti n, pregabalin , tramadol, fentanyl, tapentadol and carisoprod ol).HP1 (CBC/Renal /Hepatic/G GT) CBC - ordered to monitor the effects of prescribed medication s. Renal/Hepa tic/GGT - ordered to monitor toxicity of renal hepatic function due to medication . Fibromyalgia 662442592 M [age] Cervical s pondylosis without myelopathy 766451675 M47.812 Pain of le ft shoulder joint 5448679738 2982848 M25.512 Spondylosi s without myelopathy 61276978 M47.471 [id number] Trina Mcduffie, REIKI PRACTITIONER [address] [facility] [address] [place] [address] 10/28/2023 07:32:54 10/28/2023 09:08:01 Long-term current use of opiate analgesic drug [id number] 95188 Z79.891 Fibromyalgia 913654226 M 81.7 Cervical s pondylosis without myelopathy 452113664 M47.812 Pain of le ft shoulder joint 6651595581 5553420 M25.512 Spondylosi s without myelopathy 60598748 M47.342 [id number] Rose OLIVE Young REIKI PRACTITIONER [address] [address] 4 12/21/2023 07:47:52 12/21/2023 08:29:14 Cervical spondylosis without myelopathy 129386962 M47.812 Fibromyalgia 889475671 M 81.7 Spondylosi s without myelopathy 18447666 M47.705 [id number] Trina Mcduffie, REIKI PRACTITIONER [address] [address] 02/22/2024 07:34:21 02/23/2024 11:10:03 Long-term current use of opiate analgesic drug 6366850643 23675 Z79.891 Fibromyalgia 785230833 M [age] Cervical s pondylosis without myelopathy 994255694 M47.812 Pain of le ft shoulder joint 2426899506 5436440 M25.512 Spondylosi s without myelopathy 11781741 7.431 [id number] Trina Mcduffie, REIKI PRACTITIONER [address] [address] 04/24/2024 07:30:42 04/27/2024 13:43:56 Long-term current use of opiate analgesic drug 5871513438 02612 Z79.891 Fibromyalgia 931380008 M [age] Cervical s pondylosis without myelopathy 476173006 M47.812 Pain of le ft shoulder joint 7215055689 8233920 M25.512 Spondylosi s without myelopathy 04962233 M47.753 [id number] Trina Mcduffie, REIKI PRACTITIONER [address] [place] [address] 06/21/2024 08:03:49 06/28/2024 16:22:05 Long-term current use of opiate analgesic drug [id number] 79882 Z79.891 Diagnostic /Lab: Order Presumptiv e UDT (necessary for rapid results) with Definitive confirmati on for chronic pain patient, to define treatment and reinforce therapeuti c compliance ; the following apply: [Presumpti ve UDT includes: (Amp, Rosa, Jeremy, Bup, THC, AVE, ETOH, Meth, Opi, Oxy )] *-Patient is receiving controlled medication s. *-Presumpt palmer UDT to identify presence of illicit/no n-prescrib ed substance( s) - Confirm positive for ongoing safe prescribin g of controlled substances . *-Presumpt palmer UDT to identify presence of licit/pres cribed substance( s)-Confirm unexpected results, identify specific drug(s) in large class and ensure appropriat e use of prescribed medication (s). *-Definiti ve UDT inadequate ly detected by Presumptiv e UDT (gabapenti n, pregabalin , tramadol, fentanyl, tapentadol and carisoprod ol). HP1 (CBC/Renal /Hepatic/G GT) CBC - ordered to monitor the effects of prescribed medication s. Renal/Hepa tic/GGT - ordered to monitor toxicity of renal hepatic function due to medication . Fibromyalgia M 79.7 Cervical s pondylosis without myelopathy 035700301 M47.812 Pain of le ft shoulder joint 7010016675 1007199 M25.512 Spondylosi s without myelopathy 31792018 M47.816 Chronic ne uropathic pain 530122806 M79.2 [id number] Trina Mcduffie, REIKI PRACTITIONER [facility] [place] [address] 08/18/2024 10:17:34 08/22/2024 08:42:11 Long-term current use of opiate analgesic drug 5998045769 02571 Z79.891 HP1 (CBC/Renal /Hepatic/G GT) CBC - ordered to monitor the effects of prescribed medication s. Renal/Hepa tic/GGT - ordered to monitor toxicity of renal hepatic function due to medication . Fibromyalgia 931076697 M 81.7 Cervical s pondylosis without myelopathy 639714041 M47.812 Pain of le ft shoulder joint 0825228789 0111155 M25.512 Spondylosi s without myelopathy 52558944 M47.816 Chronic ne uropathic pain 533910335 M79.2 [id number] Trina Mcduffie, REIKI PRACTITIONER [address] [address] 09/27/2024 14:19:07 09/29/2024 17:50:35 Long-term current use of opiate analgesic drug 6016542773 42250 Z79.891 HP1 (CBC/Renal /Hepatic/G GT) CBC - ordered to monitor the effects of prescribed medication s. Renal/Hepa tic/GGT - ordered to monitor toxicity of renal hepatic function due to medication .Diagnosti c/Lab: Order Presumptiv e UDT (necessary for rapid results) with Definitive confirmati on for chronic pain patient, to define treatment and reinforce therapeuti c compliance ; the following apply: [Presumpti ve UDT includes: (Amp, Rosa, Jeremy, Bup, THC, AVE, ETOH, Meth, Opi, Oxy )] *-Patient is receiving controlled medication s. *-Presumpt palmer UDT to identify presence of illicit/no n-prescrib ed substance( s) - Confirm positive for ongoing safe prescribin g of controlled substances . *-Presumpt palemr UDT to identify presence of licit/pres cribed substance( s)-Confirm unexpected results, identify specific drug(s) in large class and ensure appropriat e use of prescribed medication (s). *-Definiti ve UDT inadequate ly detected by Presumptiv e UDT (gabapenti n, pregabalin , tramadol, fentanyl, tapentadol and carisoprod ol). Fibromyalgia 389421855 M [age] Cervical s pondylosis without myelopathy 660871896 M47.812 Pain of le ft shoulder joint 4906490529 4556222 M25.512 Spondylosi s without myelopathy 74027926 M47.816 Chronic ne uropathic pain 948087260 M79.2 [id number] Trina Mcduffie, REIKI PRACTITIONER [address] [address] 12/11/2024 07:38:23 12/15/2024 12:47:45 Long-term current use of opiate analgesic drug 5761801104 36407 Z79.891 HP1 (CBC/Renal /Hepatic/G GT) CBC - ordered to monitor the effects of prescribed medication s. Renal/Hepa tic/GGT - ordered to monitor toxicity of renal hepatic function due to medication .Diagnosti c/Lab: Order Presumptiv e UDT (necessary for rapid results) with Definitive confirmati on for chronic pain patient, to define treatment and reinforce therapeuti c compliance ; the following apply:[Pre sumptive UDT includes: (Amp, Rosa, Jeremy, Bup, THC, AVE, ETOH, Meth, Opi, Oxy )]*-Patien t is receiving controlled medication s.*-Presum ptive UDT to identify presence of illicit/no n-prescrib ed substance( s) - Confirm positive for ongoing safe prescribin g of controlled substances .*-Presump tive UDT to identify presence of licit/pres cribed substance( s)-Confirm unexpected results, identify specific drug(s) in large class and ensure appropriat e use of prescribed medication (s). _*-Definit palmer UDT inadequate ly detected by Presumptiv e UDT (gabapenti n, pregabalin , tramadol, fentanyl, tapentadol and carisoprod ol).Diagno stic/Lab: Order Presumptiv e UDT (necessary for rapid results) with Definitive confirmati on for chronic pain patient, to define treatment and reinforce therapeuti c compliance ; the following apply: [Presumpti ve UDT includes: (Amp, Rosa, Jeremy, Bup, THC, AVE, ETOH, Meth, Opi, Oxy )] *-Patient is receiving controlled medication s. *-Presumpt palmer UDT to identify presence of illicit/no n-prescrib ed substance( s) - Confirm positive for ongoing safe prescribin g of controlled substances . *-Presumpt palmer UDT to identify presence of licit/pres cribed substance( s)-Confirm unexpected results, identify specific drug(s) in large class and ensure appropriat e use of prescribed medication (s). *-Definiti ve UDT inadequate ly detected by Presumptiv e UDT (gabapenti n, pregabalin , tramadol, fentanyl, tapentadol and carisoprod ol). Fibromyalgia 358452254 M [age] Cervical s pondylosis without myelopathy 929726040 M47.812 Pain of le ft shoulder joint 9746151679 4331844 M25.512 Spondylosi s without myelopathy 97202718 M47.816 Chronic ne uropathic pain 713465100 M79.2 [id number] Trinajoseph Mcduffie, REIKI PRACTITIONER [address] [place] [address] 02/09/2025 07:48:52 02/20/2025 17:38:14 Long-term current use of opiate analgesic drug 2836517953 00513 Z79.891 Fibromyalgia 069463749 M [age] Cervical s pondylosis without myelopathy 538640199 M47.812 Pain of le ft shoulder joint 4603630889 3405300 M25.512 Spondylosi s without myelopathy 20982400 M47.816 Chronic ne uropathic pain 580438317 M79.2 [id number] Trinajoseph Mcduffie, REIKI PRACTITIONER [address] [place] [address] 04/09/2025 07:51:46 04/17/2025 10:44:01 Long-term current use of opiate analgesic drug 4179232056 00692 Z79.891 Diagnostic /Lab: Order Presumptiv e UDT (necessary for rapid results) with Definitive confirmati on for chronic pain patient, to define treatment and reinforce therapeuti c compliance ; the following apply: [Presumpti ve UDT includes: (Amp, Rosa, Jeremy, Bup, THC, AVE, ETOH, Meth, Opi, Oxy )] *-Patient is receiving controlled medication s. *-Presumpt palmer UDT to identify presence of illicit/no n-prescrib ed substance( s) - Confirm positive for ongoing safe prescribin g of controlled substances . *-Presumpt palmer UDT to identify presence of licit/pres cribed substance( s)-Confirm unexpected results, identify specific drug(s) in large class and ensure appropriat e use of prescribed medication (s). *-Definiti ve UDT inadequate ly detected by Presumptiv e UDT (gabapenti n, pregabalin , tramadol, fentanyl, tapentadol and carisoprod ol). Fibromyalgia 869482011 M 81.7 Cervical s pondylosis without myelopathy 606290633 M47.812 Pain of le ft shoulder joint 2667489984 2955356 M25.512 Spondylosi s without myelopathy 23816253 M47.816 Chronic ne uropathic pain 967206408 M79.2 Health Concerns Section Related Observation LastModified by Organization Detai ls LastModified Time None Recorded Concern Status LastModified by Organization Details LastModified Time None Recorded Advance Directives Directive None Recorded Payers Insurance Date Sequence Insurance Name Policy Number Policy Rayo Covered Member ID Rayo Member ID Guarantor Name 06/21/2024 1 [place] Shiloh Villalta [id number] Shiloh Villalta 04/26/2025 [address] MEDICA[address]-[facility] - FFS/TRADITIO NAL Shiloh Villalta [id number] Shiloh Villalta 04/26/2025 1 [employer] (MEDICARE REPLACEMENT/ ADVANTAGE - HMO) Shiloh Villalta [id number] Shiloh Villalta Notes Date Note Type Note Provider Name and Address Organization Details Recorded Time 08/18/2024 text/html Patient is followed for chronic neck and low back pain. She says that nothing has changed with her pain and she is doing ok. She says that her older brother had a stroke. The neck pain radiates to her left collar bone and down her back. The LBP radiates to her left hip. Denies any tingling/numbness . She says that she still does things around her house to keep busy and does a lot during the summer, such as mows, raises a garden and pumpkin patch. She is worried that she will not be able to do these things. She says that she is really trying in therapy but the therapy is too painful.Pain increases with activity and better with heat, ice and salon pa's spray.Pain medication gives partial relief. No SE's. Trina Mcduffie, REIKI PRACTITIONER [address] [facility], [place], [address], [facility] 09/04/2024 22:01:53 09/27/2024 text/html Patient is followed for chronic neck and low back pain. She says that nothing has changed with her pain and she is doing ok. She says that her older brother had a stroke. The neck pain radiates to her left collar bone and down her back. The LBP radiates to her left hip. Denies any tingling/numbness . She says that she still does things around her house to keep busy and does a lot during the summer, such as mows, raises a garden and pumpkin patch. She is worried that she will not be able to do these things. She says that she is really trying in therapy but the therapy is too painful.Pain increases with activity and better with heat, ice and salon pa's spray.Pain medication gives partial relief. No SE's. Trina Mcduffie, REIKI PRACTITIONER [address] [facility], [place], [address], [facility] 10/10/2024 13:20:55 12/11/2024 text/html Patient is followed for chronic neck and low back pain. She says that nothing has changed with her pain and she is doing ok. The neck pain radiates to her left collar bone and down her back. The LBP radiates to her left hip. Denies any tingling/numbness . She says that she still does things around her house to keep busy and does a lot during the summer, such as mows, raises a garden and pumpkin patch. She is worried that she will not be able to do these things. She says that she is really trying in therapy but the therapy is too painful.Pain increases with activity and better with heat, ice and salon pa's spray.Pain medication gives partial relief. No SE's. Trina Mcduffie, REIKI PRACTITIONER [address] [place], [address], [facility] 12/31/2024 19:39:14 02/09/2025 text/html Patient is followed for chronic neck and low back pain. She says that nothing has changed with her pain and she is doing ok. She says that she was told that she has a lung mass on her rt lung and she goes wednesday for further assessment of this. The neck pain radiates to her left collar bone and down her back. The LBP radiates to her left hip. Denies any tingling/numbness . She says that she still does things around her house to keep busy and does a lot during the summer, such as mows, raises a garden and pumpkin patch. She is worried that she will not be able to do these things. She says that she is really trying in therapy but the therapy is too painful.Pain increases with activity and better with heat, ice and salon pa's spray.Pain medication gives partial relief. No SE's. Trina Mcduffie, TANK [address] [facility], [place], [address], [facility] 03/06/2025 15:46:08 04/09/2025 text/html Patient is followed for chronic neck and low back pain. She says that nothing has changed with her pain and she is doing ok. The neck pain radiates to her left collar bone and down her back. The LBP radiates to her left hip. Denies any tingling/numbness . She says that she still does things around her house to keep busy and does a lot during the summer, such as mows, raises a garden and pumpkin patch. She is worried that she will not be able to do these things. She says that she is really trying in therapy but the therapy is too painful.Pain increases with activity and better with heat, ice and salon pa's spray.Pain medication gives partial relief. No SE's. Trina Mcduffie, TANK [address] [facility], [place], [address], [facility] 04/24/2025 12:56:06 OBGyn Episode No OBEpisode recorded.
--- OUTSIDE RECORDS SUMMARY | 2025-05-24 06:58 | XMS_ITS | Clinical Summary ---
Author Organization Healthcare Address [address] [place] [address] Care Team Providers Care Scrap Hoist Operator Name Role Phone Pcp, No Primary Care Provider Unavailabl e Allergies Active Allergy Reactions Criticality Noted Date Comments Amoxicillin Hives Medium 06/23/2022 Levofloxacin Unknown - Patient st ates they do not know rxn details Low 06/23/2022 Penicillins Unknown - Patient st ates they do not know rxn details Low 07/22/2022 Tizanidine Hives Medium 06/23/2022 Medications albuterol 108 (90 Base) MCG/ACT inhaler Inhale 2 puffs every 6 (six) hours if needed for wheezing. Active gabapentin (Neurontin) 600 MG tablet Take by mouth 3 (three) times a day. Active HYDROcodone-acet aminophen (Alvarado) 7.5-325 MG tablet every 4 (four) hours if needed for severe pain. Active losartan-hydroCH LOROthiazide (Hyzaar) 100-25 MG tablet Take 1 tablet by mouth 1 (one) time each day. Active rosuvastatin (Crestor) 20 MG tablet Take 20 mg by mouth every night. Active lansoprazole (Prevacid) [address] capsule Take 30 mg by mouth 1 (one) time each day before breakfast. Do not crush or chew. Active loratadine (Claritin) 10 MG tablet Take 10 mg by mouth 1 (one) time each day. Active aspirin 81 MG EC tablet Take 81 mg by mouth 1 (one) time each day. Active fluticasone-carol nterol (BREO ELIPTA) 100-25 MCG/INH inhaler Inhale 1 puff 1 (one) time each day. Active cholecalciferol (Vitamin D-3) 25 MCG (1000 UT) tablet Take 1,000 Units by mouth 1 (one) time each day. Active Active Problems Problem Noted Date Diagnosed Date Carotid stenosis 06/23/2022 Dizzy 06/23/2022 Shortness of breath 06/23/2022 ASCVD (arteriosclerotic cardiovascular disease) 06/23/2022 Essential hypertension 06/23/2022 Nicotine dependence 06/23/2022 Chest pain 06/23/2022 Chest pressure 06/23/2022 Diastolic dysfunction 06/23/2022 Anxiety and depression 06/23/2022 Family History Medical History Relation Name Comments CABG Brother Coronary artery disease Brother CABG Father Coronary artery disease Father Lung cancer Mother Relation Name Status Comments Brother Father Mother Social History Tobacco Use Types Packs/Day Years Used Date Smoking Tobacco: Former Cigarettes Q uit: 05/21/2022 Smokeless Tobacco: Never Tobacco Cessation:Counseling Given: Not Answered Alcohol Use Standard Drinks/Week Comments Yes 0 (1 standard drink = 0.6 oz pure alcohol) rarely has a glass of wine every six months Comments Unknown Sex and Gender Information Value Date Recorded Sex Assigned at Not on file Legal Sex Female 11:54 AM EDT Gender Identity Not on file Sexual Orientation Not on file Last Filed Vital Signs Vital Sign Reading Time Taken Comments Blood Pressure 124/66 08/19/2022 9:33 AM EDT Pulse 83 08/19/2022 9:33 AM EDT Temperature - - Respiratory Rate - - Oxygen Saturation 90% 08/19/2022 9:33 AM EDT Inhaled Oxygen Concentration - - Weight 75.6 kg (166 lb 10.7 oz) 08/19/2022 9:31 AM EDT Height 157.5 cm (5' 2 ) 08/19/2022 9:31 AM EDT Body Mass Index 30.48 08/19/2022 9:31 AM EDT Plan of Treatment Health Maintenance Due Date Last Done Comments [facility]-Bone Density Scan 1950 [facility]-Depression Screening 1950 [facility]-Hepatitis C Screening 1950 [facility]-Medicare Annual Wellness (AWV) 1950 [facility]-/Child/Adol SDOH Screenings 1950 [facility]- SDOH Screenings 1970 [facility]-Adult SDOH Screenings 1970 [facility]-DTaP,Tdap,and Td Vaccine s (1 - Tdap) 1971 CT Colonography 1997 Colonoscopy 1997 FIT-DNA 1997 FIT 1997 FOBT 1997 Sigmoidoscopy 1997 [facility]-Colorectal Cancer Screening 1997 [facility]-Breast Cancer Screening 2002 [facility]-Zoster Vaccines (1 of 2) 2002 [facility]-Pneumococcal Vaccine: 50 + Years (2 of 2 - PCV) 11/25/2018 11/25/2017 [id number] Vaccine (3 - season) 2024 02/28/2021, 01/28/2021 [facility]-Influenza Vaccine (#1) 2025 11/22/2012 [facility]-RSV Vaccine: 60+ Years o r (1 - 1-dose 75+ series) 2027 [facility]-Obesity Intervention Completed 08/19/2022 HPV Vaccines Aged Out No longer eligi ble based on patient's age to complete this topic [facility]-HIB Vaccines Aged Out No longer e ligible based on patient's age to complete this topic [facility]-Hepatitis A Vaccines Aged Out No longer eligible based on patient's age to complete this topic [facility]-IPV Vaccines Aged Out No longer e ligible based on patient's age to complete this topic [facility]-Rotavirus Vaccines Aged Out No lo nger eligible based on patient's age to complete this topic Insurance MEDICARE [place]ICAID[place] Care Teams Scrap Hoist Operator Relationship Specialty Start Date End Date Pcp, Paula [address] [place] [address] PCP - General Family Medicine 07/22/22
--- OUTSIDE RECORDS SUMMARY | 2025-05-24 06:58 | XMS_ITS ---
Laboratory report Created on: April 22, 2025 ENID HERNANDEZ : 1950 Sex: Female Author Name DEUCE ARAUJO Organization Unknown PROBLEMS Problems List Code Description Z79.891 RESULTS Laboratory Orders Date Order Code Test 2025-04-09 [id number] D+ALC+SVT 2025-04-09 [id number] GABAPENTIN, MS, UR Laboratory Results Date LOINC Test Value Unit Reference Range Interpre tation 2025-04-09 [facility] 2025-04-09 54051-0 AMPHETAMINES SCR EEN, URINE N NG/ML 2025-04-09 23919-3 BARBITURATES SCR EEN, URINE N NG/ML 2025-04-09 47552-0 BENZODIAZEPINES SCREEN, URINE N NG/ML 2025-04-09 75017-6 CANNABINOID SCRE EN, URINE N NG/ML 2025-04-09 13231-5 COCAINE (METAB) SCREEN, URINE N NG/ML 2025-04-09 80655-6 OPIATE SCREEN, URINE PINC NG/ML 2025-04-09 30488-7 OPIATES P NG/ML A 2025-04-09 3507-1 CODEINE NEG. 2025-04-09 3830-7 MORPHINE NEG. 2025-04-09 9834-3 HYDROMORPHONE P A 2025-04-09 92431-2 HYDROMORPHONE CO NF, MS, UR 283 NG/ML 2025-04-09 83215-0 HYDROCODONE P A 2025-04-09 33445-7 HYDROCODONE CONF , MS, UR 1346 NG/ML 2025-04-09 16582-2 6-ACETYLMORPHINE, URINE N NG/ML 2025-04-09 58152-2 OXYCODONE/OXYMOR PHONE, URINE N NG/ML 2025-04-09 54023-1 METHADONE SCREEN, URINE N NG/ML 2025-04-09 3414-0 BUPRENORPHINE, URINE N NG/ML 2025-04-09 5645-7 ETHANOL, URINE N MG/DL 2025-04-09 2161-8 CREATININE, URINE 40.8 MG/DL 20.0-300.0 2025-04-09 2756-5 PH, URINE 7.2 4.5-8.9 2025-04-09 GABAPENTIN 566.3 UG/ML
--- OUTSIDE RECORDS SUMMARY | 2025-05-24 06:58 | XMS_ITS | Data Portability ---
Author Organization [facility] Address [address] [place] [address] Assessment Encounter Date Assessment Date Assessment LastModified by Organization Details LastModified Time 07/27/2017 07/27/2017 Shiloh has acute sialoadenitis. She also has some COPD. We recommen d antibiotic and she is encouraged to use sugar free lemon drops. She is encouraged to stop smoking Not available 07/27/2017 16:15:01 08/16/2017 08/16/2017 Shiloh has a significant flare of the asthma. Likely she has flare of COPD. We will treat acutely with course of steroid and zpack. Not available 08/16/2017 10:25:57 11/25/2017 11/25/2017 Shiloh presents for a wellness visit. She is doing fairly well now. She had a stressful past few years. We continue to recommend she stop smoking and she is working on that. She declines colonoscopy but we recommend she at least consider cologuard screen. She does not take flu vaccines but does agree to the Pneumonia vaccine. Labs are reviewed and with the elevated lipids we do recommend she try a different statin as she did not tolerate the lipitor well. We encourage ongoing healthy lifestyle choices with DASH and Mediterranean style diets for best health. Not available 11/25/2017 22:58:19 02/03/2018 02/03/2018 Shiloh has a tendonitis of the finger... There may be a hint of early cellulitis so we will cover empirically with keflex Not available 02/03/2018 22:53:45 11/04/2018 11/04/2018 Mrs. Villalta complains of generalized pain and seems quite agitated. She apparently fell nearly 10 days ago onto both knees. The previous knee replacements seem intact without obvious trauma. Both hands hurt her. She requests pain medication and a pain referral. At this point we dont see a definitive diagnosis to warrant a pain clinic. She will be assessed for the possibility of rheumatoid disease We recommend topical gel for her hands as well as imaging. all Not available 11/06/2018 23:53:50 Plan of Treatment Reminders Order Date Submit Date Provider Last Modified By Organization Details Last Modified Time Details Appointments None recorded. Lab CMP, serum or plasma 2017 [facility], [address] [place], [address], 9 05:00:39 lipid panel, serum 2017 [facility], [address] [place], [address], 9 05:00:39 rf (rheumatoi d factor), titer, serum 2017 [facility], [address] [place], [address], 9 05:01:09 erythrocyt e sedimentat ion rate by westergren method 2017 [facility], [address] [place], [address], 9 05:01:09 CBC 2017 [facility], [address] [place], [address], 9 05:00:39 TSH, serum or plasma 2017 [facility], [address] [place], [address], 9 05:00:39 colon cancer screening, stool 2017 018 [email or web address] 2 [facility], [address] [place], [address], 8 09:48:04 Referral None recorded. Procedures None recorded. Surgeries None recorded. Imaging XR, hand, 3 or more view 2017 018 [facility] (Scheduling), [address] [place], [address], 9 05:01:09 MAMMO, screening, digital, bilateral 2017 018 [email or web address] [id number] 2 [facility] (Scheduling), [address] [place], [address], 8 09:44:28 Medication Orders Voltaren 1 % topical gel 2017 018 [facility], [address] [place] [address], [id number], 8 17:19:20 [place] 7.5 mg-325 mg tablet [address] [facility], [address] [place] [address], [id number], 8 21:41:09 dexamethas one sodium phosphate 4 mg/mL injection solution [address] [facility], [address] [place] [address], [id number], 8 15:14:59 methylpred nisolone 4 mg tablets in a dose pack [address] [facility], [address] [place] [address], [id number], 8 15:15:08 cephalexin 500 mg capsule [address] [facility], [address] [place] [address], [id number], 8 15:14:51 pravastati n 20 mg tablet 2017 018 [facility], [address] [place] [address], [id number], 8 11:27:07 dexamethas one sodium phosphate 4 mg/mL injection solution 2016 017 [place] Not available 8 15:14:59 methylpred nisolone 4 mg tablets in a dose pack [address] [facility], [address] [place] [address], [id number], 8 15:15:08 azithromyc in 250 mg tablet [address] [facility], [address] [place] [address], [id number], 8 15:14:40 dexamethas one sodium phosphate 4 mg/mL injection solution [address] [facility], [address] [place] [address], [id number], 8 15:14:59 clindamyci n HCl 150 mg capsule 2016 [email or web address] [facility], [address] [place] [address], [id number], 7 09:28:10 Patient TargetsNo targets recorded. Patient Instructions Encounter Date Encounter Id Patient Instructions Last Modified By Organization Details Last Modified Time 11/25/2017 [id number] dash diet: care instructions all Not available 11/25/2017 22:59:32 learning about t he mediterranean diet Not available 11/25/2017 22:59:32 Reason for Referral None Reported. Results Created Date Observation Date Name Description Value Unit Range Abnormal Flag Note LastModifiedBy Organization Detail LastModifiedTime 11/09/20 17 11/10/2017 lipid panel , serum cholesterol, total 225 mg/dL <200 high Not Available [facility] [place] [facility] [address] [facility], [place], [address], 11/10/2017 12:44:47 11/09/20 17 11/10/2017 lipid panel , serum HDL cholesterol 58 mg/dL >50 normal Not Available [facility] [place] [facility] [address] [facility], [place], [address], 11/10/2017 12:44:47 11/09/20 17 11/10/2017 lipid panel , serum triglyceride s 185 mg/dL <150 high Not Available [facility] [place] [facility] [address] [facility], [place], [address], 11/10/2017 12:44:47 11/09/20 17 11/10/2017 lipid panel , serum LDL-choleste rol 135 mg/dL _(tera c) high Refer ence range : <100 Manuel able range <100 mg/dL for patie nts with CHD or diabe eboni and <70 mg/dL for diabe tic patie nts with known heart disea se. LDL-C is now calcu lated using the Ella zhang-Hop farrukh hernandezu kodi n, which is a valid ated novel danna wagner acdoug than the Fried jerica equat ion in the estim ation of LDL-C . Ella zhang SS et al. JAIMIE. 2013; 310(1 9): 2061- 2068 (http ://ed ucati on.Hugh montano Decision Diagnosticstorie. com/f aq/FA Q164) Not Available [facility] [place] [facility] [address] [facility], [place], [address], 11/10/2017 12:44:47 11/09/20 17 11/10/2017 lipid panel , serum chol/HDLC ratio 3.9 (calc ) <5.0 normal Not Available [facility] [place] [facility] [address] [facility], [place], [address], 11/10/2017 12:44:47 11/09/20 17 11/10/2017 lipid panel , serum non HDL cholesterol 167 mg/dL _(tera c) <130 high For patie nts with diabe eboni plus 1 major ASCVD risk facto r, treat ing to a non-H DL-C goal of <100 mg/dL (LDL- C of <70 mg/dL ) is consi kwakud ramses morilloa peutbing c optio n. Not Available [facility] [place] [facility] [address] [place], [address], 11/10/2017 12:44:47 11/09/20 17 11/10/2017 CMP, serum or plasm a glucose 98 mg/dL 65-99 normal Fasti ng refer ence inter marcellus Not Available [facility] [place] [facility] [address] [facility], [place], [address], 11/10/2017 12:44:47 11/09/20 17 11/10/2017 CMP, serum or plasm a urea nitrogen (BUN) 15 mg/dL 7-25 normal Not Available [facility] [place] [facility] [address] [facility], [place], [address], 11/10/2017 12:44:47 11/09/20 17 11/10/2017 CMP, serum or plasm a creatinine 0.63 mg/dL 0.50-0 .99 normal For patie nts >49 years of age, the refer ence limit for Creat inine is appro ximat lesia 13% highe r for peopl e ident ified as Afric an-Am nicci n. Not Available [facility] [place] [facility] [address] [facility], [place], [address], 11/10/2017 12:44:47 11/09/20 17 11/10/2017 CMP, serum or plasm a eGFR non-afr. belarusian 95 mL/mi n/1.7 3m2 > or = 60 normal Not Available [facility] [place] [facility] [address] [facility], [place], [address], 11/10/2017 12:44:47 11/09/20 17 11/10/2017 CMP, serum or plasm a eGFR 110 mL/mi n/1.7 3m2 > or = 60 normal Not Available [facility] [address] [facility] [place], [address], 11/10/2017 12:44:47 11/09/20 17 11/10/2017 CMP, serum or plasm a BUN/creatini ne ratio NOT APPLIC ABLE (calc ) 6-22 Not Available [facility] [address] [facility] [place], [address], 11/10/2017 12:44:47 11/09/20 17 11/10/2017 CMP, serum or plasm a sodium 139 mmol/ L 135-14 6 normal Not Available [facility] [address] [place] [address], [address], 11/10/2017 12:44:47 11/09/20 17 11/10/2017 CMP, serum or plasm a potassium 3.8 mmol/ L 3.5-5. 3 normal Not Available [facility] [place], [address], 11/10/2017 12:44:47 11/09/20 17 11/10/2017 CMP, serum or plasm a chloride 99 mmol/ L 98-110 normal Not Available [facility] [place], [address], 11/10/2017 12:44:47 11/09/20 17 11/10/2017 CMP, serum or plasm a carbon dioxide 33 mmol/ L 20-31 high Not Available [facility] [address] [facility] [place], [address], 11/10/2017 12:44:47 11/09/20 17 11/10/2017 CMP, serum or plasm a calcium 9.8 mg/dL 8.6-10 .4 normal Not Available [facility] [address] [place], [address], 11/10/2017 12:44:47 11/09/20 17 11/10/2017 CMP, serum or plasm a protein, total 6.8 g/dL 6.1-8. 1 normal Not Available [facility] [address] [facility] [place], [address], 11/10/2017 12:44:47 11/09/20 17 11/10/2017 CMP, serum or plasm a albumin 4.1 g/dL 3.6-5. 1 normal Not Available [facility] [address] [facility] [place], [address], 11/10/2017 12:44:47 11/09/20 17 11/10/2017 CMP, serum or plasm a globulin 2.7 g/dL_ (calc ) 1.9-3. 7 normal Not Available [facility] [address] [facility] [place], [address], 11/10/2017 12:44:47 11/09/20 17 11/10/2017 CMP, serum or plasm a albumin/glob ulin ratio 1.5 (calc ) 1.0-2. 5 normal Not Available [facility] [address] [facility] [place], [address], 11/10/2017 12:44:47 11/09/20 17 11/10/2017 CMP, serum or plasm a bilirubin, total 0.5 mg/dL 0.2-1. 2 normal Not Available [facility] [address] [facility] [place], [address], 11/10/2017 12:44:47 11/09/20 17 11/10/2017 CMP, serum or plasm a alkaline phosphatase 81 U/L 33-130 normal Not Available [facility] [address] [facility] [place], [address], 11/10/2017 12:44:47 11/09/20 17 11/10/2017 CMP, serum or plasm a AST 12 U/L 10-35 normal Not Available [facility] [address] [facility] [place], [address], 11/10/2017 12:44:47 11/09/20 17 11/10/2017 CMP, serum or plasm a ALT 12 U/L 6-29 normal Not Available [facility] [address] [place] [address], [address], 11/10/2017 12:44:47 11/09/20 17 11/10/2017 TSH, serum or plasm a TSH 0.87 mIU/L 0.40-4 .50 normal Not Available [facility] [address] [place] [address], [address], 11/10/2017 12:44:48 11/09/20 17 11/10/2017 CBC w/ auto diff white blood cell count 6.5 thous and/u L 3.8-10 .8 normal Not Available [facility] [address] [place] [address], [address], 11/10/2017 12:44:49 11/09/20 17 11/10/2017 CBC w/ auto diff red blood cell count 5.00 faviola on/uL 3.80-5 .10 normal Not Available [facility] [address] [place] [address], [address], 11/10/2017 12:44:49 11/09/20 17 11/10/2017 CBC w/ auto diff hemoglobin 15.0 g/dL 11.7-1 5.5 normal Not Available [facility] [address] [place] [address], [address], 11/10/2017 12:44:49 11/09/20 17 11/10/2017 CBC w/ auto diff hematocrit 43.9 % 35.0-4 5.0 normal Not Available [facility] [address] [place] [address], [address], 11/10/2017 12:44:49 11/09/20 17 11/10/2017 CBC w/ auto diff MCV 87.8 fL 80.0-1 00.0 normal Not Available [facility] [address] [facility] [place], [address], 11/10/2017 12:44:49 11/09/20 17 11/10/2017 CBC w/ auto diff MCH 30.0 pg 27.0-3 3.0 normal Not Available [facility] [address] [place], [address], 11/10/2017 12:44:49 11/09/20 17 11/10/2017 CBC w/ auto diff MCHC 34.2 g/dL 32.0-3 6.0 normal Not Available [facility] [address] [facility] [place], [address], 11/10/2017 12:44:49 11/09/20 17 11/10/2017 CBC w/ auto diff RDW 12.5 % 11.0-1 5.0 normal Not Available [facility] [address] [facility] [place], [address], 11/10/2017 12:44:49 11/09/20 17 11/10/2017 CBC w/ auto diff platelet count 263 thous and/u L 140-40 0 normal Not Available [facility] [address] [facility] [place], [address], 11/10/2017 12:44:49 11/09/20 17 11/10/2017 CBC w/ auto diff MPV 9.8 fL 7.5-12 .5 normal Not Available [facility] [address] [facility] [place], [address], 11/10/2017 12:44:49 11/09/20 17 11/10/2017 CBC w/ auto diff absolute neutrophils 3536 cells /uL 1500-7 800 normal Not Available [facility] [address] [facility] [place], [address], 11/10/2017 12:44:49 11/09/20 17 11/10/2017 CBC w/ auto diff absolute lymphocytes 2243 cells /uL 850-39 00 normal Not Available [facility] [address] [facility] [place], [address], 11/10/2017 12:44:49 11/09/20 17 11/10/2017 CBC w/ auto diff absolute monocytes 501 cells /uL 200-95 0 normal Not Available [facility] [address] [facility] [place], [address], 11/10/2017 12:44:49 11/09/20 17 11/10/2017 CBC w/ auto diff absolute eosinophils 182 cells /uL 15-500 normal Not Available [facility] [address] [facility] [place], [address], 11/10/2017 12:44:49 11/09/20 17 11/10/2017 CBC w/ auto diff absolute basophils 39 cells /uL 0-200 normal Not Available [facility] [address] [facility], [address], 11/10/2017 12:44:49 11/09/20 17 11/10/2017 CBC w/ auto diff neutrophils 54.4 % normal Not Available [facility] [address] [facility], [address], 11/10/2017 12:44:49 11/09/20 17 11/10/2017 CBC w/ auto diff lymphocytes 34.5 % normal Not Available [facility] [address] [facility], [address], 11/10/2017 12:44:49 11/09/20 17 11/10/2017 CBC w/ auto diff monocytes 7.7 % normal Not Available [facility] [address] [facility] [place], [address], 11/10/2017 12:44:49 11/09/20 17 11/10/2017 CBC w/ auto diff eosinophils 2.8 % normal Not Available [facility] [place] [facility] [address] [place], [address], 11/10/2017 12:44:49 11/09/20 17 11/10/2017 CBC w/ auto diff basophils 0.6 % normal Not Available [facility] [place] [facility] [address] [place], [address], 11/10/2017 12:44:49 11/09/20 17 11/10/2017 urina lysis compl ete, refle x cultu re color YELLOW yellow normal Not Available [facility] [place] [facility] [address] [place], [address], 11/10/2017 12:44:49 11/09/20 17 11/10/2017 urina lysis compl ete, refle x cultu re appearance CLEAR clear normal Not Available [facility] [place] [facility] [address] [place], [address], 11/10/2017 12:44:49 11/09/20 17 11/10/2017 urina lysis compl ete, refle x cultu re specific gravity 1.016 1.001- 1.035 normal Not Available [facility] [place] [facility] [address] [facility] [place], [address], 11/10/2017 12:44:49 11/09/20 17 11/10/2017 urina lysis compl ete, refle x cultu re pH 6.5 5.0-8. 0 normal Not Available [facility] [place] [facility] [address] [place], [address], 11/10/2017 12:44:49 11/09/20 17 11/10/2017 urina lysis compl ete, refle x cultu re glucose NEGATI VE negati ve normal Not Available [facility] [place] [facility] [address] [facility], [address], 11/10/2017 12:44:49 11/09/20 17 11/10/2017 urina lysis compl ete, refle x cultu re bilirubin NEGATI VE negati ve normal Not Available [facility] [place] [facility] [address] [facility], [address], 11/10/2017 12:44:49 11/09/20 17 11/10/2017 urina lysis compl ete, refle x cultu re ketones NEGATI VE negati ve normal Not Available [facility] [place] [facility] [address] [place], [address], 11/10/2017 12:44:49 11/09/20 17 11/10/2017 urina lysis compl ete, refle x cultu re occult blood 2+ negati ve abnormal Not Available [facility] [place] [facility] [address] [place], [address], 11/10/2017 12:44:49 11/09/20 17 11/10/2017 urina lysis compl ete, refle x cultu re protein NEGATI VE negati ve normal Not Available [facility] [place] [facility] [address] [place], [address], 11/10/2017 12:44:49 11/09/20 17 11/10/2017 urina lysis compl ete, refle x cultu re nitrite NEGATI VE negati ve normal Not Available [facility] [place] [facility] [address] [place], [address], 11/10/2017 12:44:49 11/09/20 17 11/10/2017 urina lysis compl ete, refle x cultu re leukocyte esterase NEGATI VE negati ve normal Not Available [facility] [place] [facility] [address] [place], [address], 11/10/2017 12:44:49 11/09/20 17 11/10/2017 urina lysis compl ete, refle x cultu re WBC 0-5 /hpf < or = 5 normal Not Available [facility] [place] [facility] [address], [place], [address], 11/10/2017 12:44:49 11/09/20 17 11/10/2017 urina lysis compl ete, refle x cultu re RBC 0-2 /hpf < or = 2 normal Not Available [facility] [place] [facility] [address] [facility] [address], [place], [address], 11/10/2017 12:44:49 11/09/20 17 11/10/2017 urina lysis compl ete, refle x cultu re squamous epithelial cells 0-5 /hpf < or = 5 Not Available [facility] [place] [facility] [address], [place], [address], 11/10/2017 12:44:49 11/09/20 17 11/10/2017 urina lysis compl ete, refle x cultu re bacteria FEW /hpf none seen abnormal Not Available [facility] [place] [facility] [address], [place], [address], 11/10/2017 12:44:49 11/09/20 17 11/10/2017 urina lysis compl ete, refle x cultu re hyaline cast NONE SEEN /lpf none seen normal Not Available [facility] [place] [facility] [address], [place], [address], 11/10/2017 12:44:49 11/09/20 17 11/10/2017 cultu re, urine reflexive urine culture NO CULTUR E INDICA EMIGDIO Not Available [facility] [place] [facility] [address], [place], [address], 11/10/2017 12:44:50 05/24/20 18 05/24/2018 CBC w/ auto diff WBC 6.7 10 4.5-11 .5 Not Available [facility] (Lab Registration) [address], [place], [address], 05/24/2018 13:45:49 05/24/20 18 05/24/2018 CBC w/ auto diff RBC 4.69 10 4.25-5 .57 Not Available [facility] (Lab Registration) [address] [place], [address], 05/24/2018 13:45:49 05/24/20 18 05/24/2018 CBC w/ auto diff HGB 14.2 g/dL 12.0-1 5.7 Not Available [facility] (Lab Registration) [address] [place], [address], 05/24/2018 13:45:49 05/24/20 18 05/24/2018 CBC w/ auto diff HCT 41.9 % 36.0-4 7.0 Not Available [facility] (Lab Registration) [address] [place], [address], 05/24/2018 13:45:49 05/24/20 18 05/24/2018 CBC w/ auto diff MCV 89.3 fL 80-95 Not Available [facility] (Lab Registration) [address] [place], [address], 05/24/2018 13:45:49 05/24/20 18 05/24/2018 CBC w/ auto diff MCH 30.3 pg 27.0-3 4.0 Not Available [facility] (Lab Registration) [address] [place], [address], 05/24/2018 13:45:49 05/24/20 18 05/24/2018 CBC w/ auto diff MCHC 33.9 g/dL 32.0-3 6.0 Not Available [facility] (Lab Registration) [address] [place], [address], 05/24/2018 13:45:49 05/24/20 18 05/24/2018 CBC w/ auto diff RDW 13.6 % 12.3-1 5.1 Not Available [facility] (Lab Registration) [address] [place], [address], 05/24/2018 13:45:49 05/24/20 18 05/24/2018 CBC w/ auto diff platelet count 246 10 150-45 0 Not Available [facility] (Lab Registration) [address] [place], [address], 05/24/2018 13:45:49 05/24/20 18 05/24/2018 CBC w/ auto diff granulocyte% 51.8 % 40-75 Not Available [facility] (Lab Registration) [address] [place], [address], 05/24/2018 13:45:49 05/24/20 18 05/24/2018 CBC w/ auto diff lymphocyte% 34.9 % 15-57 Not Available [facility] (Lab Registration) [address] [place], [address], 05/24/2018 13:45:49 05/24/20 18 05/24/2018 CBC w/ auto diff monocyte% 9.3 % 4.0-12 .0 Not Available [facility] (Lab Registration) [address] [place], [address], 05/24/2018 13:45:49 05/24/20 18 05/24/2018 CBC w/ auto diff eosinophil% 3.2 % 0.0-4. 0 Not Available [facility] (Lab Registration) [address] [place], [address], 05/24/2018 13:45:49 05/24/20 18 05/24/2018 CBC w/ auto diff basophil% 0.8 % 0.0-1. 0 Not Available [facility] (Lab Registration) [address] [place], [address], 05/24/2018 13:45:49 05/24/20 18 05/24/2018 CBC w/ auto diff granulocyte# 3.45 10 1.8-8. 62 Not Available [facility] (Lab Registration) [address], [place], [address], 05/24/2018 13:45:49 05/24/20 18 05/24/2018 CBC w/ auto diff lymphocyte# 2.32 10 0.76-5 .40 Not Available [facility] (Lab Registration) [address], [place], [address], 05/24/2018 13:45:49 05/24/20 18 05/24/2018 CBC w/ auto diff monocyte# 0.62 10 0.18-1 .38 Not Available [facility] (Lab Registration) [address], [place], [address], 05/24/2018 13:45:49 05/24/20 18 05/24/2018 CBC w/ auto diff eosinophil# 0.21 10 0.00-0 .46 Not Available [facility] (Lab Registration) [address], [place], [address], 05/24/2018 13:45:49 05/24/20 18 05/24/2018 CBC w/ auto diff basophil# 0.05 10 0.-0.1 1 Not Available [facility] (Lab Registration) [address], [place], [address], 05/24/2018 13:45:49 05/24/20 18 05/24/2018 CBC w/ auto diff manual differential NO Not Available [facility] (Lab Registration) [address], [place], [address], 05/24/2018 13:45:49 05/24/20 18 05/24/2018 CBC w/ auto diff note Unles s other barajas noted testi ng perfo rmed at: [facility] [address] [place] [address] [phone] James lowry MD CLIA: [id number] Not Available [facility] (Lab Registration) [address] [place], [address], 05/24/2018 13:45:49 05/24/20 18 05/24/2018 tropo rusty I, serum or plasm a troponin <0.04 NG/mL 0.0-0. 056 Not Available [facility] (Lab Registration) [address] [place], [address], 05/24/2018 14:05:17 05/24/20 18 05/24/2018 tropo rusty I, serum or plasm a note Unles s other barajas noted testi ng perfo rmed at: [facility] 9 My Top 10 [facility] Clerk [place] [id number] [phone] James lowry MD CLIA: [id number] Not Available [facility] (Lab Registration) [address] [place], [address], 05/24/2018 14:05:17 05/24/20 18 05/24/2018 BMP, serum or plasm a sodium 137 mmol/ L 136-14 5 Not Available [facility] (Lab Registration) [address] [place], [address], 05/24/2018 14:05:18 05/24/20 18 05/24/2018 BMP, serum or plasm a potassium 3.8 mmol/ L 3.5-5. 1 Not Available [facility] (Lab Registration) [address] [place], [address], 05/24/2018 14:05:18 05/24/20 18 05/24/2018 BMP, serum or plasm a chloride 100 mmol/ L 98-107 Not Available [facility] (Lab Registration) [address] [place], [address], 05/24/2018 14:05:18 05/24/20 18 05/24/2018 BMP, serum or plasm a carbon dioxide 31 mmol/ L 21-32 Not Available [facility] (Lab Registration) [address] [place], [address], 05/24/2018 14:05:18 05/24/20 18 05/24/2018 BMP, serum or plasm a anion gap 6.0 Not Available [facility] (Lab Registration) [address] [place], [address], 05/24/2018 14:05:18 05/24/20 18 05/24/2018 BMP, serum or plasm a glucose 100 mg/dL 70-110 Not Available [facility] (Lab Registration) [address] [place], [address], 05/24/2018 14:05:18 05/24/20 18 05/24/2018 BMP, serum or plasm a blood urea nitrogen 13 mg/dL 7-18 Not Available [facility] (Lab Registration) [address] [place], [address], 05/24/2018 14:05:18 05/24/20 18 05/24/2018 BMP, serum or plasm a creatinine 0.7 mg/dL 0.6-1. 0 Not Available [facility] (Lab Registration) [address] [place], [address], 05/24/2018 14:05:18 05/24/20 18 05/24/2018 BMP, serum or plasm a BUN/creatini ne ratio 18.6 ratio 9-21 Not Available [facility] (Lab Registration) [address] [place], [address], 05/24/2018 14:05:18 05/24/20 18 05/24/2018 BMP, serum or plasm a estimated glom filtration rate 89 mL/mi n >60- Not Available [facility] (Lab Registration) [address] [place], [address], 05/24/2018 14:05:18 05/24/20 18 05/24/2018 BMP, serum or plasm a calcium 8.9 mg/dL 8.5-10 .1 Not Available [facility] (Lab Registration) [address] [place], [address], 05/24/2018 14:05:18 05/24/20 18 05/24/2018 BMP, serum or plasm a note Unles s other barajas noted testi ng perfo rmed at: [facility] [address] [place], [place] [id number] [phone] James lowry MD CLIA: [id number] Not Available [facility] (Lab Registration) [address] [place], [address], 05/24/2018 14:05:18 05/24/20 18 05/24/2018 D-dim er, quant , plasm a D-dimer quantitative 503.57 NG/mL 0-500 critical high Not Available [facility] (Lab Registration) [address] [place], [address], 05/24/2018 14:20:24 05/24/20 18 05/24/2018 D-dim er, quant , plasm a note Jorge s other barajas noted testi ng perfo rmed at: [facility] [address] [place], [place] [phone] James lowry MD CLIA: [id number] Not Available [facility] (Lab Registration) [address] [place], [address], 05/24/2018 14:20:24 05/24/20 18 05/24/2018 XR, chest , 2 view [facility] [place] [address] Phone: Fax: Name: SHILOH VILLALTA Exam Date: 05/24/20 18 : 9[birth year] Age 67 Gender : F Access ion: [id number] Physic jeison: Eddie Nunez opher Facili ty: [facility] Facili ty HSV: Outpat ient Exam: CHEST PA ^ LAT 2 VIEW CHEST HISTOR Y: Left-s ided rib pain. COMPAR EDUARDA: April 28, 2013. FINDIN GS: The cardia c silhou ette is normal in size. The medias tinum is unrema rkable . There is minima l presum ed scarri ng in the lingul a. Atelec tasis is less likely . There is no consol idatio n or effusi on. There is stable elevat ion of the left diaphr agm. There is no pneumo thorax . Osseou s struct ures demons trate mild degene rative change s in the spine. IMPRES ANEESH: Minima l presum ed scarri ng in the lingul a. Atelec tasis is though t less likely . If there is concer n for rib fractu re, consid er rib series . The films were review ed, interp reted, and dictat ed by Dr. Emily Sheth Transc ribed by Miri Riley PA-C Dictat ed By: EMILY SHETH Transc ribed By: jessica sheth Transc ribed On: 05/24/20 18 1:44 PM Electr onical ly signed by: EMILY SHETH 05/24/20 Thank you for referr SHILOH Martin to [facility]. Legall y authen ticate d by IRIS Cloud MD 2017-05-24 13:44: 38 CC'ed Logic: Orderi ng Provid er: EMMANUEL RAMIREZ CC Provid er: LUCIA Donaldson Attend ing Provid er: EMMANUEL RAMIREZ Referr ing Provid er: EMMANUEL RAMIREZ Admitt ing Provid er: EMMANUEL carrizales [facility] (Radiology) [address] [place], [address], 05/26/2018 16:33:06 05/24/20 18 05/24/2018 CT, chest , w/ contr ast [facility] [address] [place] [address] [place] [address] Phone: Fax: Name: SHILOH VILLALTA Exam Date: 05/24/20 18 : 9[birth year] Age 67 Gender : F Access ion: [id number] Physic jeison: Eddie Nunez opher Facili ty: [facility] Facili ty HSV: Outpat ient Exam: CT CHEST WITH CONTRA ST CT CHEST WITH CONTRA ST - PE PROTOC OL HISTOR Y: Shortn ess of breath , elevat ed d-dime r. COMPAR EDUARDA: May 12, 2013. TECHNI QUE: Thin sectio n axial CT with IV contra st supple mented with 3D recons tructe d MIP images . This study was perfor med with techni ques to keep radiat ion doses as low as reason ably achiev able, (ALARA ). Indivi dualiz ed dose reduct ion techni ques using automa emigdio exposu re contro l or adjust ment of mA and/or kV accord ing to the patien t's size were employ ed. FINDIN GS:Pul monary vessel s enhanc e in a normal fashio n withou t eviden ce of emboli c diseas e. Thorac ic aorta is normal in calibe r withou t eviden ce of aneury sm or dissec tion. Vascul ar calcif icatio ns are identi fied. There is a stable left lower lobe nodule . Scar is identi fied within both lung bases. There is faint ground glass opacit y in the medial right lower lobe. This is best seen on image 68. This is more conspi cuous when compar ed to the prior study, but differ ences could be positi onal. Recomm end follow -up chest CT in 6 months . There is an opacit y in the anteri or right midlun g field. This could repres ent mild atelec tasis or infect ious or inflam matory proces s. This too could be follow ed on subseq uent examin ation. Otherw ise, there has been no signif icant interv al change . No pleura l or perica rdial effusi on is seen . No adenop athy is presen t . There are normal -sized lymph nodes. Limite d images of the upper abdome n demons trate a left adrena l nodule . This appear s simila r to May 12, 2013. This is favore d to be an adenom a. There are right adrena l calcif icatio ns, likely relate d to previo us trauma or infect ion. Mild degene rative change s are noted in the spine. CONCLU ANEESH: 1. No eviden ce of pulmon tori emboli sm. 2. Faint ground glass opacit y in the medial right lower lobe, more conspi cuous than previo us. The differ ences could be positi onal. Recomm end chest CT follow -up in 6 months . 3. Opacit y in the anteri or right midlun g field. This could repres ent mild atelec tasis or infect ious or inflam matory proces s. This too can be follow ed on subseq uent examin ation. The films were review ed, interp reted, and dictat ed by Dr. Emily Sheth Transc ribed by Miri Riley PA-C Dictat ed By: EMILY SHETH Transc ribed By: jsesica sheth Transc ribed On: 05/24/20 18 3:36 PM Electr onical ly signed by: EMILY SHETH 05/24/20 18 Thank you for referr ing SHILOH VILLALTA to [facility]. Legall y authen ticate d by IRIS Cloud MD 2017-0 05-24 15:36: 07 CC'ed Logic: Orderi ng Provid er: EMMANUEL RAMIREZ CC Provid er: LUCIA Donaldson Attend ing Provid er: EMMANUEL RAMIREZ Referr ing Provid er: EMMANUEL RAMIREZ Admitt ing Provid er: EMMANUEL carrizales [facility] (Radiology) [address] [place] [address] [place], [address], 05/26/2018 16:33:07 Result Notes Documentation Provider Name and Address Organization Details Recorded Time Xr, Chest, 2 View : [address] [place] [address] Name: SHILOH VILLALTA Exam Date: 05/24/2018 : 1950 Age 67 Gender: F Physician: Cornel Nunez Facility: [facility] Facility HSV: Outpatient Exam: CHEST PA ^ LAT 2 VIEW CHEST HISTORY: Left-sided rib pain. COMPARISON: April 28, 2013. FINDINGS: The cardiac silhouette is normal in size. The mediastinum is unremarkable. There is minimal presumed scarring in the lingula. Atelectasis is less likely. There is no consolidation or effusion. There is stable elevation of the left diaphragm. There is no pneumothorax. Osseous structures demonstrate mild degenerative changes in the spine. IMPRESSION: Minimal presumed scarring in the lingula. Atelectasis is thought less likely. If there is concern for rib fracture, consider rib series. The films were reviewed, interpreted, and dictated by Dr. Kar Sheth Transcribed by Kerrie Riley PA-C Dictated By: KAR SHETH Transcribed By: jessica sheth Transcribed On: 05/24/2018 1:44 PM Electronically signed by: KAR SHETH 05/24/2018 Thank you for referring SHILOH VILLALTA to [facility]. Legally authenticated by IRIS Cloud MD 2018-05-24 13:44:38 CC'ed Logic: Ordering Provider: EMMANUEL KELLEY CC Provider: TRUPTI ROGEL Attending Provider: EMMANUEL KELLEY Referring Provider: EMMANUEL KELLEY Admitting Provider: EMMANUEL Lyles MD [address] [place] [address], [address], [place], [phone] 05/26/2018 16:33:06 Ct, Chest, W/ Contrast : [address] [place] [address] Name: SHILOH VILLALTA Exam Date: 05/24/2018 : 1950 Age 67 Gender: F Physician: Cornel Nunez Facility: [facility] Facility HSV: Outpatient Exam: CT CHEST WITH CONTRAST CT CHEST WITH CONTRAST - PE PROTOCOL HISTORY: Shortness of breath, elevated d-dimer. COMPARISON: May 12, 2013. TECHNIQUE: Thin section axial CT with IV contrast supplemented with 3D reconstructed MIP images. This study was performed with techniques to keep radiation doses as low as reasonably achievable, (ALARA). Individualized dose reduction techniques using automated exposure control or adjustment of mA and/or kV according to the patient's size were employed. FINDINGS:Pulmonary vessels enhance in a normal fashion without evidence of embolic disease. Thoracic aorta is normal in caliber without evidence of aneurysm or dissection. Vascular calcifications are identified. There is a stable left lower lobe nodule. Scar is identified within both lung bases. There is faint groundglass opacity in the medial right lower lobe. This is best seen on image 68. This is more conspicuous when compared to the prior study, but differences could be positional. Recommend follow-up chest CT in 6 months. There is an opacity in the anterior right midlung field. This could represent mild atelectasis or infectious or inflammatory process. This too could be followed on subsequent examination. Otherwise, there has been no significant interval change. No pleural or pericardial effusion is seen . No adenopathy is present . There are normal-sized lymph nodes. Limited images of the upper abdomen demonstrate a left adrenal nodule. This appears similar to May 12, 2013. This is favored to be an adenoma. There are right adrenal calcifications, likely related to previous trauma or infection. Mild degenerative changes are noted in the spine. CONCLUSION: 1. No evidence of pulmonary embolism. 2. Faint groundglass opacity in the medial right lower lobe, more conspicuous than previous. The differences could be positional. Recommend chest CT follow-up in 6 months. 3. Opacity in the anterior right midlung field. This could represent mild atelectasis or infectious or inflammatory process. This too can be followed on subsequent examination. The films were reviewed, interpreted, and dictated by Dr. Kar Sheth Transcribed by Kerrie Riley PA-C Dictated By: KAR SHETH Transcribed By: jessica sheth Transcribed On: 05/24/2018 3:36 PM Electronically signed by: KAR SHETH 05/24/2018 Thank you for referring SHILOH VILLALTA to [facility]. Legally authenticated by IRIS Cloud MD 2018-05-24 15:36:07 CC'ed Logic: Ordering Provider: EMMANUEL KELLEY CC Provider: TRUPTI ROGEL Attending Provider: EMMANUEL KELLEY Referring Provider: EMMANUEL KELLEY Admitting Provider: EMMANUEL Lyles MD [address], [address] [place] [address], [place] [facility] 05/26/2018 16:33:07 Problems Name Problem SNOMED Code Status Onset Date Resolution Date Notes Provider Name and Address Organization Details Recorded Time Backache [id number] Anastasiia Lyles MD [address] [address], [place] [facility] 6 17:17:55 Acute exacerbation of chronic bronchitis 433830843 Active Carmen Lyles MD [address] [address], [place] [facility] 6 17:17:55 Arthritis of knee 357055692 Anastasiia Lyles MD [address] [address], [place] [facility] 6 17:17:55 Urinary tract infectious disease 63553380 Active Carmen Lyles MD [address] [address], [place] [facility] 6 17:17:55 Neck pain 43990734 Anastasiia Lyles MD [address] [address], [place] [facility] 6 17:17:55 Blood in urine [id number] Anastasiia Lyles MD [address] [address], [place] [facility] 6 17:17:55 Headache 62057502 Anastasiia Lyles MD [address] [address], [place] [facility] 6 17:17:55 Low back strain [id number] Anastasiia Lyles MD [address] [id number], [facility] - [facility] 6 17:56:00 Strain of back muscle 188272509 Anastasiia Lyles MD [address] [address], [place] [facility] 6 17:17:55 Acute sciatica 118828706 Anastasiia Lyles MD [address] [address], [place] [facility] 6 17:17:55 Hyperlipidemia 87227674 Anastasiia Lyles MD [address] [address], [facility] - [facility] 6 17:56:00 Fatigue 44423028 Anastasiia Lyles MD [address] [address], [place] [facility] 6 17:17:55 Body mass index 30+ - obesity 289126052 Anastasiia Lyles MD [address] [address], [place] [facility] 6 17:56:00 Obesity 587396344 Anastasiia Lyles MD [address] [address], [place] [facility] 17:17:55 Acute sinusitis 62425966 Anastasiia Lyles MD [address] [address], [place] [facility] 6 17:17:55 Dyspnea 230150063 Anastasiia Lyles MD [address] [address], [place] [facility] 6 17:17:55 Knee pain Active Carmen Lyles MD [address] [address], [facility] 6 17:17:55 Chronic obstructive pulmonary disease 05538716 Anastasiia Lyles MD [address] [address], [facility] 6 17:56:00 Benign essential hypertension 0381087 Active Carmen Lyles MD [address] [address], [place] [facility] 6 17:56:00 Anxiety state [id number] Anastasiia Lyles MD [address] [address], [facility] 6 17:17:55 Tibial collateral ligament bursitis [id number] Anastasiia Lyles MD [address] [address], [facility] 6 17:17:55 Acute bronchitis 01716737 Anastasiia Lyles MD [address] [address], [facility] 6 17:17:55 Depressive disorder 56316221 Anastasiia Lyles MD [address] [address], [facility] 6 17:56:00 Tobacco dependence syndrome 06196864 Anastasiia Lyles MD [address] [address], [facility] 6 17:56:00 Problem Notes None recorded. Procedures Surgical History Date Name Laterality Status Provider Name and Address Organization Details Recorded Time 01/15/20 15 Greater Occipital Nerve Block(s) completed Carmen Lyles MD [address] [address], [place], [address], [place] [facility] 01/15/2015 21:21:00 11/22/19 14 Joint Replacement completed Carmen Lyles MD [address], [address], [place] [facility] 01/15/2015 10:06:33 09/07/20 11 Corticosteroid Injection completed Carmen Lyles MD [address], [address] [place] [address], [place] [facility] 09/07/2011 18:21:41 11/22/19 06 Hysterectomy completed Not Available [facility] 10/06/2011 04:58:32 11/22/19 01 Orthopaedic Surgery completed Carmen Lyles MD [address], [address] [place] [address], [place] [facility] 01/15/2015 10:06:33 Appendectomy completed Not Available [facility] 10/06/2011 04:58:32 Colonoscopy completed Carmen Lyles MD [address], [address] [place] [address], [place] [facility] 01/15/2015 10:06:33 Imaging Results None recorded. Procedure Notes None recorded. Medical Equipment None Reported. Allergies Allergen ID Allergen Name Allergen Category Reaction Reaction Severity Criticality Documentation Date Start Date Code Code System Note Provider Name and Address Organization Details Recorded Time 2105 Product containin g penicilli n (product) medicatio n Not available Not available Not available 09/07/2011 15011 8001 SNOMED Not Available [facility] 1 04:58:31 Medications Name Sig Start Date Stop Date Status Note LastModified by Organization Details LastModified Time cyclobenz aprine 10 mg tablet 01/15 completed Not Available Not Available Not Available methocarb juan 500 mg tablet active Not Available Not Available No t Available nystatin 100,000 unit/mL oral suspensio n active Not Available Not Available Not Available gabapenti n 600 mg tablet TAKE 1 TABLET BY MOUTH 3 TIMES A DAY (FILL 09/26/19) active Not Available Not Available No t Available naproxen 375 mg tablet 01/15 completed Not Available Not Available Not Available ipratropi um 0.5 mg-albute rol 3 mg (2.5 mg base)/3 mL nebulizat ion soln Inhale 3 mL 4 times a day by nebuliza tion route as needed for 30 days. active Not Available Not Available No t Available atorvasta tin 10 mg tablet Take 1 tablet(s ) every day by oral route. 11/25 completed she could not take it Not Available Not Available Not Available lisinopri l 20 mg-hydroc hlorothia zide 12.5 mg tablet 1 po daily active Not Available Not Available No t Available azithromy levy 250 mg tablet TAKE 2 TABLETS BY MOUTH ON DAY 1, THEN TAKE 1 TABLET DAILY ON DAYS 2-5 07/27 completed Not Available Not Available Not Available tizanidin e 4 mg tablet active Not Available Not Available Not Available hydrocodo ne 5 mg-acetam inophen 325 mg tablet active Not Available Not Available Not Available lisinopri l 20 mg tablet active Not Available Not Available Not Available clonazepa m 0.5 mg tablet Take 1 tablet twice a day by oral route as needed. active Not Available Not Available No t Available clindamyc in HCl 150 mg capsule Take 1 capsule( s) every 6 hours for 7 days. 08/02 completed Not Available Not Available Not Available phentermi ne 37.5 mg tablet Take 1 tablet every day by oral route for 30 days. 06/16 completed 06-20-[address] 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 08/27 completed Not Available Not Available Not Available sulfameth oxazole 800 mg-trimet hoprim 160 mg tablet active Not Available Not Available Not Available hydrocodo ne 10 mg-acetam inophen 325 mg tablet Take 1 tablet every 6-8 hours by oral route as needed. active Not Available Not Available No t Available tramadol 50 mg tablet Take 1-2 tablet(s ) qid 01/15 completed Not Available Not Available Not Available oxycodone -acetamin ophen 5 mg-325 mg tablet active Not Available Not Available Not Available ceftriaxo ne 1 gram solution for injection Take 1 g by injectio n route. 01/15 completed Rocephin Not Available Not Available Not Available hydrocodo ne 10 mg-acetam inophen 500 mg tablet active Not Available Not Available Not Available Nitrostat 0.4 mg sublingua l tablet Dissolve 1 tablet under tongue as needed for chest pain;rep eat every 15 min max 3 tabs active Not Available Not Available No t Available baclofen 10 mg tablet Take 1 tablet 4 times a day by oral route as needed for 30 days. active Not Available Not Available No t Available Cartia XT 120 mg capsule,e xtended release active Not Available Not Available Not Available hydrocodo ne 7.5 mg-acetam inophen 325 mg tablet TAKE ONE TABLET EVERY SIX HOURS NEEDED FOR acute pain active Not Available Not Available No t Available cephalexi n 500 mg capsule Take 1 capsule 4 times a day by oral route. 03/02 completed Not Available Not Available Not Available paroxetin e 30 mg tablet Take 1 tablet every day by oral route. active Not Available Not Available No t Available lisinopri l 10 mg tablet active Not Available Not Available Not Available promethaz ine 25 mg tablet Take 1 tablet every 4 hours by oral route. active Not Available Not Available No t Available diltiazem ER (XR/XT) 120 mg capsule,e xtended release 24 hr, controlle d Take 1 capsule every day by oral route. 2014 active Not Available Not Available Not Avai lable Advair Diskus 250 mcg-50 mcg/dose powder for inhalatio n Inhale 1 puff twice a day by inhalati on route. active Not Available Not Available No t Available diclofena c sodium 25 mg tablet,de layed release active Not Available Not Available Not Available docusate sodium 100 mg capsule active Not Available Not Available Not Available gabapenti n 300 mg capsule TAKE 2 CAPSULES THREE TIMES DAILY NEEDED. active Not Available Not Available No t Available omeprazol e 20 mg capsule,d elayed release Take 1 capsule every day by oral route. active Not Available Not Available No t Available diclofena c sodium 75 mg tablet,de layed release 01/15 completed Not Available Not Available Not Available pravastat in 20 mg tablet Take 1 tablet every day by oral route. active Not Available Not Available No t Available gabapenti n 100 mg capsule one p.o. t.i.d. active Not Available Not Available No t Available dexametha sone sodium phosphate 4 mg/mL injection solution Take 1 mL every day by injectio n route. 02/04 completed Not Available Not Available Not Available lisinopri l 10 mg-hydroc hlorothia zide 12.5 mg tablet TAKE ONE TABLET ONCE DAILY active Not Available Not Available No t Available ibuprofen 600 mg tablet active Not Available Not Available Not Available levofloxa levy 500 mg tablet Take 1 tablet every 24 hours by oral route. active Not Available Not Available No t Available methylpre dnisolone 4 mg tablets in a dose pack take as directed 02/09 completed Not Available Not Available Not Available Tussionex [place] ic ER 10 mg-8 mg/5 mL suspensio n,extende d release Take 5 mL every day by oral route in the evening. 2014 active Not Available Not Available Not Avai lable hydrocodo ne 7.5 mg-acetam inophen 500 mg tablet Take 1 tablet every 4 hours by oral route as needed. active Not Available Not Available No t Available fluoxetin e 20 mg capsule Take 1 capsule every day by oral route. active only take PRN Not Available Not Available Not Available sulindac 200 mg tablet Take 1 tablet twice a day by oral route. 2013 active called to [facility] spoke with aviva hathaway cma (per dr. lyles) Not Available Not Available Not Available loratadin e 10 mg tablet Take 1 tablet(s ) every day by oral route as needed. active Not Available Not Available No t Available Ventolin HFA 90 mcg/actua tion aerosol inhaler USE 2 PUFFS EVERY 4 HOURS DIRECTED . 2018 active Not Available Not Available Not Avai lable enoxapari n 40 mg/0.4 mL subcutane ous syringe active Not Available Not Available Not Available azithromy levy 500 mg tablet active Not Available Not Available No t Available bupropion HCl XL 150 mg 24 hr tablet, extended release Take 1 tablet every day by oral route in the morning for 30 days. active Not Available Not Available No t Available Endocet 7.5 mg-325 mg tablet Take 1 tablet every 6 hours by oral route. active Not Available Not Available No t Available metoprolo l tartrate 25 mg tablet Take 1 tablet twice a day by oral route. active Not Available Not Available No t Available tizanidin e 4 mg capsule Take 1 capsule every day by oral route at bedtime. active sometime s 1/2 tab daily Not Available Not Available Not Available Lyrica 50 mg capsule Take 1 capsule 3 times a day by oral route. active Not Available Not Available No t Available lisinopri l 10/ 12.5mg active Not Available Not Available No t Available Advair Diskus active Not Available Not Available Not Available Voltaren 1 % topical gel APPLY 2 GRAM TO THE AFFECTED AREA(S) BY TOPICAL ROUTE 4 TIMES PER DAY active Not Available Not Available No t Available Breo Ellipta 100 mcg-25 mcg/dose powder for inhalatio n Inhale 1 puff every day by inhalati on route. 2016 active Not Available Not Available Not Avai lable Breo Ellipta 200 mcg-25 mcg/dose powder for inhalatio n active Not Available Not Available Not Available Vitals Date Recorded Body height Body mass index (BMI) Body weight Heart rate Oxygen saturation Oxygen saturation in Arterial blood by Pulse oximetry Body temperature Systolic blood pressure Diastolic blood pressure Provider Name and Address Organization Details Last Updated DateTime 8 157.48 cm 31.5 kg/m2 95165.9 9 g 82 /min 95 % 95 % 97.8 [degF] 105 mm[Hg] 67 mm[Hg] [facility] 8 09:52:08 Date Recorded Body height Body mass index (BMI) Body weight Heart rate Oxygen saturation Oxygen saturation in Arterial blood by Pulse oximetry Body temperature Systolic blood pressure Diastolic blood pressure Provider Name and Address Organization Details Last Updated DateTime 8 157.48 cm 31.8 kg/m2 51482.0 7 g 102 /min 96 % 96 % 98.3 [degF] 111 mm[Hg] 63 mm[Hg] [facility] 8 14:14:44 Date Recorded Heart rate Oxygen saturation Oxygen saturation in Arterial blood by Pulse oximetry Systolic blood pressure Diastolic blood pressure Provider Name and Address Organization Details Last Updated DateTime 8 64 /min 96 % 96 % 140 mm[Hg] 82 mm[Hg] [facility] 8 12:07:26 Date Recorded Body height Body mass index (BMI) Body weight Heart rate Oxygen saturation Oxygen saturation in Arterial blood by Pulse oximetry Body temperature Systolic blood pressure Diastolic blood pressure Provider Name and Address Organization Details Last Updated DateTime 7 157.48 cm 31.5 kg/m2 53436.5 9 g 95 /min 96 % 96 % 98.2 [degF] 151 mm[Hg] 92 mm[Hg] [facility] 7 15:50:59 Date Recorded Body height Body mass index (BMI) Body weight Heart rate Oxygen saturation Oxygen saturation in Arterial blood by Pulse oximetry Body temperature Systolic blood pressure Diastolic blood pressure Provider Name and Address Organization Details Last Updated DateTime 7 157.48 cm 31.3 kg/m2 08742.4 g 98 /min 95 % 95 % 98.3 [degF] 116 mm[Hg] 77 mm[Hg] [facility] 7 09:54:34 Date Recorded Body height Body mass index (BMI) Body weight Heart rate Oxygen saturation Oxygen saturation in Arterial blood by Pulse oximetry Body temperature Systolic blood pressure Diastolic blood pressure Provider Name and Address Organization Details Last Updated DateTime 8 157.48 cm 31 kg/m2 03761.5 1 g 91 /min 94 % 94 % 98.6 [degF] 140 mm[Hg] 84 mm[Hg] [facility] 8 15:14:19 Social History Question Answer Notes LastModified by Organizat ion Details LastModified Time Tobacco Smoking Status Current Every Day Smoker Not Available [facility] 09/17/2020 03:11:18 Do You Have An Advance Directive? No [id number] Information not available 09/17/2020 Animal Exposure? Yes Information not available 01/25/2014 Auto Related Injury? No Information not available 01/25/2014 Is Blood Transfusion Acceptable In An Emergency? Yes [id number] Information not available 09/17/2020 What Is Your Level Of Caffeine Consumption? Moderate [id number] Information not available 09/17/2020 Diabetes No Information no t available 01/25/2014 What Type Of Diet Are You Following? REGULAR [id number] Information not available 09/17/2020 Education 12 [employer] X [employer] Information not available 09/07/2011 Family History Of Heart Disease? Yes Information not available 01/25/2014 Which Of Your Hands Is Dominant? Right [id number] Information not available 09/17/2020 High Blood Pressure Yes Information not available 01/25/2014 High Cholesterol Yes Information not available 01/25/2014 Live Alone Or With Others? With Others Information not available 01/25/2014 Marital Status Information not available 10/06/2011 What Was The Date Of Your Most Recent Tobacco Screening? 11/04/2018 [id number] Information not available 09/17/2020 How Many Children Do You Have? 1 [id number] Information not available 09/17/2020 Do You Use Your Seat Belt Or Car Seat Routinely? Yes [id number] Information not available 09/17/2020 Seat Belts Used Routinely Yes Information not available 01/25/2014 Smoke Alarm In Home Yes Information not available 01/25/2014 How Much Tobacco Do You Smoke? 0.25 PPD Only Smoking 2 Cigarettes Per Day [id number] Information not available 09/17/2020 General Stress Level High Information not available 01/25/2014 Do You Use Sunscreen Routinely? Yes [id number] Information not available 09/17/2020 Work Related Injury? No Information not available 01/25/2014 Sex: Unknown Functional Status Question Answer Note LastModified by Organizat ion Details LastModified Time What is your level of alcohol consumption? None [id number] Information not available 09/17/2020 Are you currently employed? No [id number] Information not available 09/17/2020 Are you able to care for yourself? 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 Occasional [id number] Information not available 09/17/2020 Mental Status None recorded. Family History Relationship Description Onset Age of this Age Resolved Age Notes LastModified by Organization Details LastModified Time Mother Problem 57 lung Not available 03/19/2016 17:40:30 Father Heart disease previo usly record ed as Heart Proble m Not available 03/19/2016 17:40:30 Father Problem 63 suicid e 1 year after wifes Not available 03/19/2016 17:40:30 Sister Malignant neoplastic disease cervic al (previ ously record ed as Cancer ) Not available 03/19/2016 17:40:30 Brother Myocardial infarction previo usly record ed as Heart Attack ([place]) Not available 03/19/2016 17:40:30 Medical History Condition Response Muscle, Joint, or Bone Problems Y Hypertension Y COPD Y Gynecological History Statement/Question Response Age at First Child 20 Obstetrics History GPAL:G 0 P 0 0 0 0 Immunizations Vaccine Type Date Status Note Provider Nam e and Address Organization Details Recorded Time Influenza, split virus, trivalent, preservative 3 completed Carmen Lyles MD [address] [place] [address], [phone], [facility] 01/25/2014 18:05:30 pneumococcal polysaccharide PPV23 8 completed Not Available [facility] 12/09/2019 02:12:07 Past Encounters Encounter ID Performer Location Encounter Start Date Encounter Closed Date Diagnosis/Indication Diagnosis SNOMED-CT Code Diagnosis ICD10 Code Diagnosis Note [id number] Carmen Lyles MD [facility] [address] [place] [address] 09/07/2011 16:34:54 09/09/2011 03:51:07 [id number] Bradley Ramos MD [address] [address] 12/17/2011 08:29:08 12/17/2011 11:25:53 [id number] Carmen Lyles MD [address] [address] 01/12/2012 16:06:44 01/13/2012 09:45:49 [id number] Bradley Ramos MD [address] [address] 07/15/2012 15:39:17 07/15/2012 17:29:37 [id number] Carmen Lyles MD [address] [address] 04/25/2013 10:14:58 04/25/2013 17:02:22 [id number] Carmen Lyles MD [address] [address] 01/25/2014 15:56:54 01/25/2014 18:23:26 Knee pain 77707745 Benign ess ential hypertension 5906019 Anxiety state 137464880 Backache 822609691 [id number] Carmen Lyles MD [address] [address] 08/20/2014 14:53:59 08/20/2014 17:35:34 Urinary tract infectious disease 14009287 Neck pain 20658728 Arthritis of knee 950320636 Chronic ob structive pulmonary disease 07808502 Backache 677195976 [id number] Carmen Lyles MD [address] [address] 01/15/2015 10:01:15 01/16/2015 08:47:20 Neck pain 79504015 Benign ess ential hypertension 4482555 Anxiety state 445843246 Headache 58805618 [id number] Carmen Lyles MD [address] [address] 04/08/2015 14:22:13 04/09/2015 16:36:18 Low back strain 720058751 Strain of back muscle 886958683 Acute sciatica 545315647 [id number] Carmen Lyles MD [facility] [address] [place] [address] 11/05/2015 14:22:55 11/05/2015 16:35:31 Acute exacerbation of chronic bronchitis 460534110 J44.1 [id number] Carmen Lyles MD [facility] [address] [address] 03/19/2016 15:37:30 03/20/2016 17:16:12 Adult health examination 452504592 Z00.01 Benign ess ential hypertension 3809287 I10 Chronic ob structive pulmonary disease 82073779 J44.9 Depressive disorder 3548 9007 F32.9 Hyperlipidemia 49349564 E78.5 Low back strain 52781843 1 S39.012S Tobacco de pendence syndrome 05409678 F17.290 Body mass index 30+ - obesity 612494440 Z68.31 Screening mammography 24 761183 Z12.31 [id number] Carmen Lyles MD [facility] [address] [address] 06/16/2016 15:34:38 06/16/2016 18:05:26 Acute exacerbation of chronic obstructive pulmonary disease 864660410 J44.1 [id number] Carmen Lyles MD [facility] [address] [address] 01/15/2017 09:04:03 01/15/2017 16:16:30 Acute exacerbation of chronic obstructive pulmonary disease 958312772 J44.1 Allergic rhinitis 084740 04 J30.9 [id number] Carmen Lyles MD [facility] [address] [address] 03/09/2017 10:44:06 03/10/2017 08:40:02 Chest pain 00879249 R07.9 Hyperlipidemia 48172323 E78.5 Benign ess ential hypertension 3331542 I10 Chronic ob structive pulmonary disease 10645974 J44.9 [id number] Carmen Lyles MD [facility] [address] [address] 07/27/2017 15:02:14 07/27/2017 17:46:27 Acute sialoadenitis 556532605 K11.21 Chronic ob structive pulmonary disease 52262843 J44.9 [id number] Carmen Lyles MD [facility] [address] [id number] 08/16/2017 09:48:27 08/16/2017 12:10:06 Acute exacerbation of chronic obstructive pulmonary disease 416093543 J44.1 [id number] Carmen Lyles MD [facility] [address] [place] [address] 11/25/2017 09:29:46 11/29/2017 17:20:25 Adult health examination 569852394 Z00.01 Active or passive immunization 801559491 Z23 Screening for malignant neoplasm of colon 735173546 Z12.11 Smoker 61739295 F17.200 Screening mammography 24 199793 Z12.31 Essential hypertension 29789557 I10 Hyperlipidemia 41515173 E78.5 Body mass index 30+ - obesity 706347988 Z68.31 Depression screening 171 748949 Z13.89 Depressive disorder 3548 9007 F32.9 F32.4 At low risk for fall 439 589175 Z91.81 [id number] Carmen Lyles MD [facility] [address] [place] [address] 02/03/2018 14:01:19 02/04/2018 08:15:51 Tendinitis of finger 709491871 M77.9 Cellulitis of finger of left hand 7598304703 6791724 L03.012 [id number] Carmen Lyles MD [facility] [address] [address] 11/04/2018 14:57:26 11/07/2018 15:20:54 Pain of joint of hand 231021583 M25.549 History of bilateral total knee replacement 2179765084 534302 Z96.653 Fall 5652729 W19.XXXA Hyperlipidemia 42581028 E78.5 Essential hypertension 02129560 I10 Fatigue 03234031 R53.83 Health Concerns Section Related Observation LastModified by Organization Detai ls LastModified Time None Recorded Concern Status LastModified by Organization Details LastModified Time None Recorded Advance Directives Directive N: Payers Insurance Date Sequence Insurance Name Policy Number Policy Rayo Covered Member ID Rayo Member ID Guarantor Name 11/04/2018 2 [place] [employer] CHOICES - FFS/TRADITIO NAL Shiloh Villalta [id number] Shiloh Villalta 10/07/2020 1 [place] Shiloh Villalta [id number] Shiloh Villalta Notes Date Note Type Note Provider Name and Address Organization Details Recorded Time 07/27/2017 text/html She has noted so me swelling in the left lower jaw and has some dental issues. She also is a little short of breath Carmen Lyles MD [address], [address], [facility] 07/27/2017 16:17:54 08/16/2017 text/html has been sick wi th sinus and asthma flaring too for over a week Having shortness of breath from wheezing and used her nebulizer. Carmen Lyles MD [address], [address], [facility] 08/16/2017 10:29:04 02/03/2018 text/html she had a small piece of steel in the palm of the left hand and her son squeezed it out and since then the left ring finger has been swollen and tender since But it is not red. She has decreased flexion of PIP and DIP joints of ring finger. WE will treat with a steroid and antibiotic Carmen Lyles MD [address], [address], [facility] 02/03/2018 22:54:19 11/04/2018 text/html fell over a tras h bag and hit on her knees over a week ago They were bruised and are better now she wants pain medications as she states she cannot take her pain and that the only thing she can take is lortab. she has seen Dr Constantino for the knees previously and they have both been replaced. Her back hurts all the time. Also the hands have swelling over MIP joints. They keep her awake at night. she states she wont be able to make her holiday candy because the hands hurt so much. Carmen Lyles MD [address], [address], [facility] 11/06/2018 23:54:25 OBGyn Episode No OBEpisode recorded.
--- OUTSIDE RECORDS SUMMARY | 2025-05-24 06:58 | XMS_ITS | Continuity of Care Document ---
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 Name Role Phone SHERRIELOGANMARISELA Monzon Primary Care Provider Assessment Encounter Date Assessment Date Assessment LastModified by Organization Details LastModified Time 04/09/2025 04/09/2025 Global Risk Assessment Score: High [...] Office Visit15 2024 08:15A M Trina Mcduffie, ENTERER Not available Not available Not available Lab drug screen, urine - Meds: 2024 025 [email or web address] Henrandez MD [facility] [address] [place], [address], 04/19/2025 11:44:00 CBC w/ auto diff 2024 025 [email or web address] Hernandez MD [facility] [address] [place], [address], 04/17/2025 08:58:40 hepatic function panel, serum 2024 025 bela Hernandez MD [facility]), [address] [place] [address], [id number], 04/30/2025 07:24:29 gamma-glu tamyl transfera se (ggt), serum 2024 025 [email or web address] Hernandez MD [facility] [address] [place], [address], 04/17/2025 08:58:40 venipunct ure 2024 025 bela Hernandez MD [facility] [address] [place], [address], 04/30/2025 07:24:29 Referral None recorded. Procedures None recorded. Surgeries None recorded. Imaging None recorded. Medication Orders gabapenti n 600 mg tablet 2024 025 [facility], [address] [place] [address], [id number], 05/15/2025 09:44:35 hydrocodo ne 7.5 mg-acetam inophen 325 mg tablet 2024 025 [facility], [address] [place] [address], [id number], 04/13/2025 09:46:46 hydrocodo ne 7.5 mg-acetam inophen 325 mg tablet 2024 025 [facility], [address] [place], [place], [id number], 04/17/2025 15:22:05 Patient TargetsNo targets recorded. Patient Instructions Encounter Date Encounter Id Patient Instructions Last Modified By Organization Details Last Modified Time 04/09/2025 [id number] 1) Pain management: Will cont pain meds [...] Eloise Valles MD and supervision of: Jorge Hernandez MD Discussed goals of treatment are to reduce the major symptoms, including chronic widespread pain, fatigue, insomnia, and cognitive dysfunction. Patient educated on disease, treatment approaches, good sleep practices, and importance of treating comorbidities that contribute to symptoms. Discussed importance of exercise program. [email or web address] Not available 04/09/2025 08:40:12 Reason for Referral None Reported. Problems Name Problem SNOMED Code Status Onset Date Resolution Date Notes Provider Name and Address Organization Details Recorded Time Opioid dependenc e 49390330 Active 2018 (F11.20)O pioid dependenc e, uncomplic ated Not Available [facility] 22:14:48 Pain of left shoulder joint 23305171193 178179 Active 2019 (M25.512) Pain in left shoulder Not Available [facility] 2 22:14:49 Cervical spondylos is without myelopath y 914367624 Active 2018 (M47.812) Spondylos is without myelopath y or radiculop athy, cervical region Not Available [facility] 2 22:14:49 Spondylos is without myelopath y 80142243 Active 2018 (M47.816) Spondylos is without myelopath y or radiculop athy, lumbar region Not Available [facility] 2 22:14:49 Fibromyal gigi 302432829 Active 2018 (M79.7)Fi bromyalgi a Not Available [facility] 2 22:14:49 Long-term current use of opiate analgesic drug 76642863982 4108 Active 2018 (Z79.891) [facility] (current) use of opiate analgesic Not Available [facility] 2 22:14:49 Current drug user 218588630 Active 2018 (Z79.899) Other [facility] (current) drug therapy Not Available [facility] 2 22:14:49 Problem Notes None recorded. Medical Equipment None Reported. Allergies Allergen ID Allergen Name Allergen Category Reaction Reaction Severity Criticality Documentation Date Start Date Code Code System Note Provider Name and Address Organization Details Recorded Time Product containin g penicilli n (product) medicatio n Not available Not available Not available 03/24/20222018 82723 8001 SNOMED Not Available [facility] 2 22:01:05 11513 amoxicill in medicatio n Not available Not available Not available 03/24/20222018 723 RxNorm Not Available [facility] 2 22:01:05 84351 PPD black rubber mix environme nt Not available Not available Not available 03/24/20222018 97647 UNK TB SKIN TEST. 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 5 07:55:10 Social History Question Answer Notes LastModified by [...] available 05/14/2022 What is your occupation? Disabled [email or web address] Information not available 03/24/2022 Mental Status None [...] e and Address Organization Details Recorded Time COVID-19, mRNA, LNP-S, PF, 30 mcg/0.3 mL dose 05/14/2022 completed Tiffanie [facility] [place] [facility] 05/14/2022 10:15:29 Past Encounters Encounter ID Performer Location Encounter Start Date Encounter Closed Date Diagnosis/Indication Diagnosis SNOMED-CT Code Diagnosis ICD10 Code Diagnosis Note [id number] Trina Mcduffie, ENTERER [facility] [place] [address] 04/09/2025 07:51:46 04/17/2025 10:44:01 Long-term current use of opiate analgesic drug 5943872378 82456 Z79.891 Diagnostic /Lab: Order Presumptiv e UDT [...] tramadol, fentanyl, tapentadol and carisoprod ol). Fibromyalgia 051080674 M 79.7 Cervical s pondylosis without myelopathy 683984613 M47.812 Pain of le ft shoulder joint 9062936079 7856288 M25.512 Spondylosi s without myelopathy 20708660 M47.816 Chronic ne uropathic pain 174657369 M79.2 Health Concerns Section Related Observation LastModified by Organization Detai ls LastModified Time None Recorded Concern Status LastModified by Organization Details LastModified Time None Recorded Payers Encounter Date Sequence Insurance Name Policy Number Policy Rayo Covered Member ID Rayo Member ID Guarantor Name 04/09/2025 2 [place] HEALTH CHOICES - FFS/TRADITIO NAL Shiloh Villalta [id number] Shiloh Villalta 04/09/2025 1 [employer] (MEDICARE REPLACEMENT/ ADVANTAGE - HMO) Shiloh Villalta [id number] Shiloh Villalta Notes Date Note Type Note Provider Name and Address Organization Details Recorded Time 04/09/2025 text/html Patient is followed for chronic [...] gives partial relief. No SE's. Trina Mcduffie, ENTERER [address], [place], [address], [facility] 04/24/2025 12:56:06 OBGyn Episode No OBEpisode recorded.
--- NOTE | 2025-05-24 07:30 | CT_ITS ---
FINAL REPORT TECHNIQUE: Axial images were obtained through the chest without contrast. This study was performed with techniques to keep radiation doses as low as reasonably achievable (ALARA). Individualized dose reduction techniques using automated exposure control or adjustment of mA and/or kV according to the patient's size were employed. CLINICAL HISTORY: SOB COMPARISON: 12/08/2024 FINDINGS: CT CHEST WITHOUT CONTRAST: There is linear density in the anterior aspect of the minor fissure, that appears to represent a scar. There is a medial left base density which measures 8 x 7 mm in size, best seen on image #155 of series 3. There is also an 8 mm essentially stable abnormal density that is likely post inflammatory. A ground glass opacity is present in the medial right lower lobe, also stable, best seen on image #161 of series 3. No new nodules or masses are identified. IMPRESSION: Multiple stable nodules are again identified. Recommend 1 year follow-up LDCT to follow. Reviewed, Interpreted and Dictated by Tony Wilson MD Transcribed by Aliya Davidson Authenticated and [facility]
[2025-05-24 07:50] VITALS: PULSE 60; PULSE 65
[2025-05-24] MEDS: ALBUTEROL 0.083% 2.5 MG/3 ML NEB IH (07:50)
--- NOTE | 2025-05-24 08:00 | PC.NURSE ---
Pt refused 6MWT
== END 2025-05-24 23:59 | disposition home or self-care (01) ==
LOC: RAD 06:55
PROVIDERS: PCP Family Medicine; Visit Provider Internal Medicine Pulmonary Disease
DX: R91.8 Other nonspecific abnormal finding of lung field (principal); J44.9 Chronic obstructive pulmonary disease, unspecified
CPT/HCPCS: 71250; 94060; 94640; 94726; 94729

== ENCOUNTER 2025-09-04 09:35 | Outpatient (CLI) | payer MEDICARE, MEDICAID, SELFPAY ==
--- OUTSIDE RECORDS SUMMARY | 2025-08-10 06:47 | XMS_ITS | Continuity of Care Document ---
Author Organization [facility] Phone Care Team Providers Care Solar Tech Name Role Phone AMADOU EASON Admitting DYLAN BANG Primary Care AMADOU EASON Primary Attending AMADOU EASON Unavailable ALLERGIES AND ADVERSE REACTIONS ALLERGIES AND ADVERSE REACTIONS Code System Allergy Substance Adverse Reaction Date Reaction (Severity) Comment Status Reported By Updated By 723 RXNorm Amoxicillin Hives hives active [id number] on August 08, 2025 6:06:17 PM [facility] FAMILY HISTORY RELATION: Father Status: Cause of : Unknown Age at : Unknown SNOMED-CT Diagnosis Age At Onset [id number] Suicide RELATION: Mother Status: Cause of : Unknown Age at : Unknown SNOMED-CT Diagnosis Age At Onset [id number] Malignant tumor of lung RELATION: Brother Status: LIVING SNOMED-CT Diagnosis Age At Onset [id number] Heart disease RESULTS Patient: MARY Decker Date of : December 08 LABORATORY RESULTS Information is not available LABORATORY NARRATIVE RESULTS Information is not available RADIOLOGY RESULTS ORDER 100: WRIST 3V LT (JUDI C: [id number]) ORDER DATE: August 08, 2025 6:03:00 PM [facility] PERFORMING LAB: [address] [id number] Final Result Date: August 08, 2025 6:20:[address] [place] [address] Name: ENID HERNANDEZ Exam Date: 08/08/2025 : 1950 Age 74 years Gender: F Physician: Facility: [facility] Facility HSV: Outpatient Exam: WRIST 3V LT Left wrist 3 views HISTORY: Pain with trauma. FINDINGS: Degenerative changes between distal scaphoid and second carpal row and of first carpometacarpal joint. No definite evidence for fracture or dislocation. IMPRESSION: Degenerative changes. No acute bony injury. Electronically signed by: Brady Quijano MD 08/08/2025 02:29 PM EDT RP Dictated By: BRADY QUIJANO Transcribed By: Transcribed On: 08/08/2025 2:20 PM Electronically signed by: BRADY QUIJANO 08/08/2025 Thank you for referring ENID HERNANDEZ to [facility]. Legally authenticated by LUCY CHAN 2025-08-08 14:20:34 ORDER 200: HAND LT 3V (LOINC : [id number]) ORDER DATE: August 08, 2025 6:03:00 PM [facility] PERFORMING LAB: [address] [id number] Final Result Date: August 08, 2025 6:20:42 PM [address] [place] [address] Name: ENID HERNANDEZ Exam Date: 08/08/2025 : 1950 Age 74 years Gender: F Physician: Facility: [facility] Facility HSV: Outpatient Exam: HAND LT 3V EXAM: XR HAND 3 OR MORE VIEWS LEFT INDICATION: Pain with Trauma/Injury. . TECHNIQUE: Three views of the hand were obtained. COMPARISON:No prior study was submitted for comparison. FINDINGS: Diffuse osteopenia. No obvious lytic, blastic or expansile osseous lesion. Osteoarthritic changes. Most severe degenerative change about the first carpometacarpal joint and third distal interphalangeal joints. Gullwing deformity at the base of the third distal phalanx suggesting erosive osteoarthritis. No evidence of acute fracture. IMPRESSION: 1. No acute osseous abnormality. 2. Osteoarthritis. 3. Osteopenia. Correlate for senile osteoporosis. RECOMMENDATION: Clinical follow-up. Further evaluation with CT or MRI if symptoms persist. Electronically signed by: Aurelio Orlando DO 08/08/2025 02:32 PM EDT Dictated By: AURELIO ORLANDO Transcribed By: Transcribed On: 08/08/2025 2:20 PM Electronically signed by: AURELIO ORLANDO 08/08/2025 Thank you for referring ENID HERNANDEZ to [facility]. Legally authenticated by JOHANNY CAREY DO 2025-08-08 14:20:42 PATHOLOGY NARRATIVE RESULTS Information is not available MICROBIOLOGY RESULTS No Micro Labs/Results Exist for Patient BLOOD ADMIN RESULTS Information is not available MEDICATIONS HOME MEDICATIONS Status RXNORM NDC Medication Dose Route Frequency Dates Comments Reported By Updated By Active [id number] 47224 aspirin 81 mg tablet 1.0 TAB ORAL DAILY Last Dose: [id number] on August 08, 2025 6:06:22 PM [facility] Active 211203 507707 32607 gabapentin 600 mg tablet 1.0 TAB ORAL TID Last Dose: [id number] on August 08, 2025 6:06:23 PM [facility] Active 762007 860305 90405 hydrocodone -acetaminop hen 7.5-325 mg tablet 1.0 TAB ORAL Q8HPRN Last Dose: [id number] on August 08, 2025 6:06:23 PM [facility] DISCHARGE MEDICATIONS Status RXNORM NDC Medication Dose Route Frequency Dates Dis pense Data Comments Physician Updated By No Discharge Medication Info rmation Available INPATIENT MEDICATIONS Status RXNORM NDC Medication Dose Route Frequency Rat e Quantity Dates Indication Dispense Data Comments Physician Updated By No Inpatient Medication Info rmation Available SOCIAL HISTORY SOCIAL HISTORY - Smoking Status SNOMED-CT Social History Element Description Effective Dates Offered Cessation Comment Updated By [id number] Current Tobacco smoking status Current Every Day Smoker [id number] on August 08, 2025 6:02:13 PM [facility] SOCIAL HISTORY - Gender Sex: Female SOCIAL HISTORY - Status : status i nformation is not available Intention in Next Year: intention information is not available SOCIAL HISTORY - Assessments Code System Description Status Date Value of Assessment Updated By Comment Assessment Information is no t available SOCIAL HISTORY - [place] Affiliation [place] information is not av ailable SOCIAL HISTORY - Legal Sex Legal Sex information is not available SOCIAL HISTORY - Sexual Behavior Sexual Orientation Gender Identity SNOMED-CT Description SNO MED -CT Description Activity Level No of Partners Partner Type UpdatedBy Information is not available SOCIAL HISTORY - Occupation Occupation information is no t available VITAL SIGNS PATIENT VITAL SIGNS This section displays the mo st recent value for each vital sign as of August 10, 2025 10:47:06 AM UTC Loinc Code Vital Sign Activity Date Result Updated By 8310-5 Body temperature August 08 5:59:30 PM UTC 97.8 [degF] 53399-2 Body weight Measured July 232024 6:00:53 PM UTC 44.0 kg (97.0 lb) [id number] on August 08, 2025 6:00:53 PM UTC 8462-4 Diastolic blood pressure August 08, 2025 5:59:30 PM UTC 68.0 mm[Hg] 8867-4 Heart rate August 08 5:59:30 PM UTC 90 /min 51434-7 Oxygen saturation in Arterial blood by Pulse oximetry August 08, 2025 5:59:30 PM UTC 99.0 % 9279-1 Respiratory rate August 08 5:59:30 PM UTC 18 /min 8480-6 Systolic blood pressure August 08, 2025 5:59:30 PM UTC 129.0 mm[Hg] PEDIATRIC GROWTH CHART - VITAL SIGNS This section displays Head C ircumference Percentile, Weight for Length Percentile and BMI Percentile Loinc Code Pediatric Measure Age (Months) Result Updat ed By No Pediatric Growth Chart Pe rcentile Information Available. HEALTH CONCERNS Problems Concern Status Health Concern problem infor mation not available. Smoking Status Status Years Used Consumed packs p er day Health Concern smoking histo ry information not available. Family History Concern Status Health Concern family histor y information not available. ENCOUNTERS ENCOUNTER INFORMATION Reason for Visit HAND INJURY Admission August 08, 2025 5:54:00 PM [facility] [address] [id number] Discharge August 08, 2025 7:54:00 PM [facility] DISCHARGED TO HOME OR SELF CARE ENCOUNTER DIAGNOSES Notes information is not frida ilable. Code System Diagnosis Onset Date Diagnosis information is not available. ABSTRACT DIAGNOSES Code System Diagnosis Updated By Benjamintement Date S69.92XA ICD10 UNSPECIFIED INJU RY OF LEFT WRIST, HAND AND FINGER(S), INITIAL ENCOUNTER [id number] on August 10, 2025 10:46:40 AM UTC M25.532 ICD10 PAIN IN LEFT WRIST [id number] o n August 10, 2025 10:46:40 AM UTC M79.632 ICD10 PAIN IN LEFT FOREARM [id number] on August 10, 2025 10:46:40 AM UTC M25.532 ICD10 PAIN IN LEFT WRIST [id number] o n August 10, 2025 10:46:40 AM UTC I10 ICD10 ESSENTIAL (PRIMA RY) HYPERTENSION [id number] on August 10, 2025 10:46:40 AM UTC F17.210 ICD10 NICOTINE DEPENDE NCE, CIGARETTES, UNCOMPLICATED [id number] on August 10, 2025 10:46:40 AM UTC Z79.899 ICD10 OTHER PRISON (CURRENT) DRUG THERAPY [id number] on August 10, 2025 10:46:40 AM UTC Z88.0 ICD10 ALLERGY STATUS TO PENICILLIN [id number] on August 10, 2025 10:46:40 AM UTC Z79.82 ICD10 PRISON (CURRE NT) USE OF ASPIRIN [id number] on August 10, 2025 10:46:40 AM [facility] CARE TEAM Care Solar Tech Role AMADOU EASON Admitting DYLAN PAYNEELL Primary Care AMADOU EASON Primary Attending AMADOU EASON Referring CARE TEAM CARE librarian Role on Team Location Telecom Status Start Date End Raad e Updated By YUMI Schulz MD, MD Referring normal August 08, 2025 7:38:36 PM [facility] August 08, 2025 7:54:00 PM [facility] [id number] on August 08, 2025 7:38:36 PM [facility] YUMI Schulz MD, MD Attending normal August 08, 2025 7:38:36 PM [facility] August 08, 2025 7:54:00 PM [facility] [id number] on August 08, 2025 7:38:36 PM [facility] YUMI Schulz MD, MD Admitting normal August 08, 2025 7:38:36 PM [facility] August 08, 2025 7:54:00 PM [facility] [id number] on August 08, 2025 7:38:36 PM UTC BETI RICHARDSON APRN PCP normal August 08, 2025 5:55:20 PM [facility] August 08, 2025 7:54:00 PM [facility] [id number] on August 08, 2025 7:38:36 PM [facility]
[2025-09-04 14:56] LABS: Hematocrit 42.6 % (37.0-47.0); Hemoglobin 14.4 g/dL (12.2-16.2); Immature Granulocytes % 0.1 %; Mean Corpuscular HGB Conc 33.8 g/dL (31.8-35.4); Mean Corpuscular Hemoglobin 30.8 pg (27.0-31.2); Mean Corpuscular Volume 91.2 fl (81-99); Nucleated Red Blood Cells % 0 %; Platelet Count 212 K/mm3 (142-424); Red Blood Count 4.67 M/mm3 (4.20-5.40); Red Cell Distribution Width-SD 44.0 fL; White Blood Count 7.4 K/mm3 (4.8-10.8)
[2025-09-04 15:30] LABS: Alkaline Phosphatase 85 U/L (38-126); Bilirubin,Total 0.6 mg/dl (0.2-1.3); Carbon Dioxide 38 mmol/L (22.0-30.0); Total Protein,Serum 6.3 g/dl (6.3-8.2)
[2025-09-04 15:31] LABS: Calcium 8.8 mg/dl (8.4-10.2); Glucose 98 mg/dl (74-100); Lipase 23 U/L (23-300)
[2025-09-04 16:24] LABS: Alanine Aminotransferase 21 U/L (12-78); Albumin Level 3.7 g/dl (3.5-5.0); Albumin/Globulin Ratio 1.4 (1.1-1.8); Amylase 49 U/L (30-110); Anion Gap 8.7 mEq/L (5-15); Aspartate Amino Transferase 24 U/L (14-36); Blood Urea Nitrogen 11 mg/dl (7-17); Chloride 87 mmol/L (98-107); Creatinine,Serum 0.50 mg/dl (0.52-1.04); Estimated Glomerular Filt Rate 121 ml/min (>60); GFR (African American) 147 ML/MIN (>60); Globulin 2.6 g/dL (1.3-3.2); Potassium 3.7 mmoL/L (3.5-5.1); Sodium 130 mmol/L (136-145)
--- OUTSIDE RECORDS SUMMARY | 2025-09-06 09:20 | XMS_ITS | Data Portability ---
Author Organization [facility] Address [address] [place] [address] Assessment Encounter Date Assessment Date Assessment LastModified [...] recorded. Lab CMP, serum or plasma 2017 [facility], [address] [place], [address], 9 05:00:39 lipid panel, serum 2017 [facility], [address] [place], [address], 9 05:00:39 rf (rheumatoi d factor), titer, serum 2017 [facility], [address] [place], [address], 9 05:01:09 erythrocyt e sedimentat ion rate by westergren method 2017 [facility], [address] [place], [address], 9 05:01:09 CBC 2017 [facility], [address] [place], [address], 9 05:00:39 TSH, serum or plasma 2017 [facility], [address] [place], [address], 9 05:00:39 colon cancer screening, stool 2017 018 [email or web address] 2 [facility], [address] [place], [address], 8 09:48:04 Referral None recorded. Procedures None recorded. Surgeries None recorded. Imaging XR, hand, 3 or more view 2017 018 [facility] (Scheduling), [address] [place], [address], 9 05:01:09 MAMMO, screening, digital, bilateral 2017 018 [email or web address] [id number] 2 [facility] (Scheduling), [address] [place], [address], 8 09:44:28 Medication Orders Voltaren 1 % topical gel 2017 018 [facility], [address] [place] [address], [id number], 8 17:19:20 [place] 7.5 mg-325 mg tablet 2017 018 [facility], [address] [place] [address], [id number], 8 21:41:09 dexamethas one sodium phosphate 4 mg/mL injection solution [address] [facility], [address] [place] [address], [id number], 8 15:14:59 methylpred nisolone 4 mg tablets in a dose pack [address] [facility], [address] [place] [address], [id number], 8 15:15:08 cephalexin 500 mg capsule [address] [facility], [address] [place] [address], [id number], 8 15:14:51 pravastati n 20 mg tablet 2017 018 [facility], [address] [place] [address], [id number], 8 11:27:07 dexamethas one sodium phosphate 4 mg/mL injection solution 2016 017 [place] Not available 8 15:14:59 methylpred nisolone 4 mg tablets in a dose pack [address] [facility], [address] [place] [address], [id number], 8 15:15:08 azithromyc in 250 mg tablet [address] [facility], [address] [place] [address], [id number], 8 15:14:40 dexamethas one sodium phosphate 4 mg/mL injection solution [address] [facility], [address] [place] [address], [id number], 8 15:14:59 clindamyci n HCl 150 mg capsule 2016 017 [email or web address] [facility], [address] [place] [address], [id number], 7 09:28:10 Patient TargetsNo targets recorded. Patient Instructions Encounter Date Encounter Id Patient Instructions Last Modified By Organization Details Last Modified Time 11/25/2017 [id number] dash diet: care instructions all Not available 11/25/2017 22:59:32 learning about t he mediterranean diet Not available 11/25/2017 22:59:32 Reason for Referral None Reported. Results Created Date Observation Date Name Description Value Unit Range Abnormal Flag Note LastModifiedBy Organization Detail LastModifiedTime 11/09/20 17 11/10/2017 lipid panel , serum cholesterol, total 225 mg/dL <200 high Not Available [facility] [address] [facility], [place], [address], 11/10/2017 12:44:47 11/09/20 17 11/10/2017 lipid panel , serum HDL cholesterol 58 mg/dL >50 normal Not Available [facility] [place] [address] [facility], [place], [address], 11/10/2017 12:44:47 11/09/20 17 11/10/2017 lipid panel , serum triglyceride s 185 mg/dL <150 high Not Available [facility] [place] [address] [facility], [place], [address], 11/10/2017 12:44:47 11/09/20 17 11/10/2017 lipid panel [...] 2061- 2068 (http ://ed ucati on.Hugh montano ThriveHivetorie. com/f aq/FA Q164) Not Available [facility] [address] [facility], [place], [address], 11/10/2017 12:44:47 11/09/20 17 11/10/2017 lipid panel , serum chol/HDLC ratio 3.9 (calc ) <5.0 normal Not Available [facility] [place] [address] [facility], [place], [address], 11/10/2017 12:44:47 11/09/20 17 11/10/2017 lipid panel , serum non HDL cholesterol 167 mg/dL _(tera c) <130 high For patie nts with diabe eboni plus 1 major ASCVD risk facto r, treat ing to a non-H DL-C goal of <100 mg/dL (LDL- C of <70 mg/dL ) is consi kwakud ramses morilloa peutbing c optio n. Not Available [facility] [address] [place], [address], 11/10/2017 12:44:47 11/09/20 17 11/10/2017 CMP, serum or plasm a glucose 98 mg/dL 65-99 normal Fasti ng refer ence inter marcellus Not Available [facility] [place] [address] [facility], [place], [address], 11/10/2017 12:44:47 11/09/20 17 11/10/2017 CMP, serum or plasm a urea nitrogen (BUN) 15 mg/dL 7-25 normal Not Available [facility] [place] [address] [facility], [place], [address], 11/10/2017 12:44:47 11/09/20 17 11/10/2017 CMP, serum or plasm a creatinine 0.63 mg/dL 0.50-0 .99 normal For patie nts >49 years of age, the refer ence limit for Creat inine is appro ximat lesia 13% highe r for peopl e ident ified as Afric an-Am nicci n. Not Available [facility] [place] [address] [facility], [place], [address], 11/10/2017 12:44:47 11/09/20 17 11/10/2017 CMP, serum or plasm a eGFR non-afr. cymraes 95 mL/mi n/1.7 3m2 > or = 60 normal Not Available [facility] [address] [facility], [place], [address], 11/10/2017 12:44:47 11/09/20 17 11/10/2017 CMP, serum or plasm a eGFR 110 mL/mi n/1.7 3m2 > or = 60 normal Not Available [facility] [address] [facility] [place], [address], 11/10/2017 12:44:47 11/09/20 17 11/10/2017 CMP, serum or plasm a BUN/creatini ne ratio NOT APPLIC ABLE (calc ) 6-22 Not Available [facility] [address] [facility] [place], [address], 11/10/2017 12:44:47 11/09/20 17 11/10/2017 CMP, serum or plasm a sodium 139 mmol/ L 135-14 6 normal Not Available [facility] [address] [place] [address], [address], 11/10/2017 12:44:47 11/09/20 17 11/10/2017 CMP, serum or plasm a potassium 3.8 mmol/ L 3.5-5. 3 normal Not Available [facility] [place], [address], 11/10/2017 12:44:47 11/09/20 17 11/10/2017 CMP, serum or plasm a chloride 99 mmol/ L 98-110 normal Not Available [facility] [place], [address], 11/10/2017 12:44:47 11/09/20 17 11/10/2017 CMP, serum or plasm a carbon dioxide 33 mmol/ L 20-31 high Not Available [facility] [address] [facility] [place], [address], 11/10/2017 12:44:47 11/09/20 17 11/10/2017 CMP, serum or plasm a calcium 9.8 mg/dL 8.6-10 .4 normal Not Available [facility] [address] [place], [address], 11/10/2017 12:44:47 11/09/20 17 11/10/2017 CMP, serum or plasm a protein, total 6.8 g/dL 6.1-8. 1 normal Not Available [facility] [address] [facility] [place], [address], 11/10/2017 12:44:47 11/09/20 17 11/10/2017 CMP, serum or plasm a albumin 4.1 g/dL 3.6-5. 1 normal Not Available [facility] [address] [facility] [place], [address], 11/10/2017 12:44:47 11/09/20 17 11/10/2017 CMP, serum or plasm a globulin 2.7 g/dL_ (calc ) 1.9-3. 7 normal Not Available [facility] [address] [facility] [place], [address], 11/10/2017 12:44:47 11/09/20 17 11/10/2017 CMP, serum or plasm a albumin/glob ulin ratio 1.5 (calc ) 1.0-2. 5 normal Not Available [facility] [address] [facility] [place], [address], 11/10/2017 12:44:47 11/09/20 17 11/10/2017 CMP, serum or plasm a bilirubin, total 0.5 mg/dL 0.2-1. 2 normal Not Available [facility] [address] [facility] [place], [address], 11/10/2017 12:44:47 11/09/20 17 11/10/2017 CMP, serum or plasm a alkaline phosphatase 81 U/L 33-130 normal Not Available [facility] [address] [facility] [place], [address], 11/10/2017 12:44:47 11/09/20 17 11/10/2017 CMP, serum or plasm a AST 12 U/L 10-35 normal Not Available [facility] [address] [facility] [place], [address], 11/10/2017 12:44:47 11/09/20 17 11/10/2017 CMP, serum or plasm a ALT 12 U/L 6-29 normal Not Available [facility] [address] [place] [address], [address], 11/10/2017 12:44:47 11/09/20 17 11/10/2017 TSH, serum or plasm a TSH 0.87 mIU/L 0.40-4 .50 normal Not Available [facility] [address] [place] [address], [address], 11/10/2017 12:44:48 11/09/20 17 11/10/2017 CBC w/ auto diff white blood cell count 6.5 thous and/u L 3.8-10 .8 normal Not Available [facility] [address] [place] [address], [address], 11/10/2017 12:44:49 11/09/20 17 11/10/2017 CBC w/ auto diff red blood cell count 5.00 faviola on/uL 3.80-5 .10 normal Not Available [facility] [address] [place] [address], [address], 11/10/2017 12:44:49 11/09/20 17 11/10/2017 CBC w/ auto diff hemoglobin 15.0 g/dL 11.7-1 5.5 normal Not Available [facility] [address] [place] [address], [address], 11/10/2017 12:44:49 11/09/20 17 11/10/2017 CBC w/ auto diff hematocrit 43.9 % 35.0-4 5.0 normal Not Available [facility] [address] [place] [address], [address], 11/10/2017 12:44:49 11/09/20 17 11/10/2017 CBC w/ auto diff MCV 87.8 fL 80.0-1 00.0 normal Not Available [facility] [address] [facility] [place], [address], 11/10/2017 12:44:49 11/09/20 17 11/10/2017 CBC w/ auto diff MCH 30.0 pg 27.0-3 3.0 normal Not Available [facility] [address] [place], [address], 11/10/2017 12:44:49 11/09/20 17 11/10/2017 CBC w/ auto diff MCHC 34.2 g/dL 32.0-3 6.0 normal Not Available [facility] [address] [facility] [place], [address], 11/10/2017 12:44:49 11/09/20 17 11/10/2017 CBC w/ auto diff RDW 12.5 % 11.0-1 5.0 normal Not Available [facility] [address] [facility] [place], [address], 11/10/2017 12:44:49 11/09/20 17 11/10/2017 CBC w/ auto diff platelet count 263 thous and/u L 140-40 0 normal Not Available [facility] [address] [facility] [place], [address], 11/10/2017 12:44:49 11/09/20 17 11/10/2017 CBC w/ auto diff MPV 9.8 fL 7.5-12 .5 normal Not Available [facility] [address] [facility] [place], [address], 11/10/2017 12:44:49 11/09/20 17 11/10/2017 CBC w/ auto diff absolute neutrophils 3536 cells /uL 1500-7 800 normal Not Available [facility] [address] [facility] [place], [address], 11/10/2017 12:44:49 11/09/20 17 11/10/2017 CBC w/ auto diff absolute lymphocytes 2243 cells /uL 850-39 00 normal Not Available [facility] [address] [facility] [place], [address], 11/10/2017 12:44:49 11/09/20 17 11/10/2017 CBC w/ auto diff absolute monocytes 501 cells /uL 200-95 0 normal Not Available [facility] [address] [facility] [place], [address], 11/10/2017 12:44:49 11/09/20 17 11/10/2017 CBC w/ auto diff absolute eosinophils 182 cells /uL 15-500 normal Not Available [facility] [address] [facility] [place], [address], 11/10/2017 12:44:49 11/09/20 17 11/10/2017 CBC w/ auto diff absolute basophils 39 cells /uL 0-200 normal Not Available [facility] [address] [facility] [place], [address], 11/10/2017 12:44:49 11/09/20 17 11/10/2017 CBC w/ auto diff neutrophils 54.4 % normal Not Available [facility] [address] [facility] [place], [address], 11/10/2017 12:44:49 11/09/20 17 11/10/2017 CBC w/ auto diff lymphocytes 34.5 % normal Not Available [facility] [address] [facility] [place], [address], 11/10/2017 12:44:49 11/09/20 17 11/10/2017 CBC w/ auto diff monocytes 7.7 % normal Not Available [facility] [address] [facility] [place], [address], 11/10/2017 12:44:49 11/09/20 17 11/10/2017 CBC w/ auto diff eosinophils 2.8 % normal Not Available [facility] [place] [address] [place], [address], 11/10/2017 12:44:49 11/09/20 17 11/10/2017 CBC w/ auto diff basophils 0.6 % normal Not Available [facility] [place] [address] [place], [address], 11/10/2017 12:44:49 11/09/20 17 11/10/2017 urina lysis compl ete, refle x cultu re color YELLOW yellow normal Not Available [facility] [place] [address] [place], [address], 11/10/2017 12:44:49 11/09/20 17 11/10/2017 urina lysis compl ete, refle x cultu re appearance CLEAR clear normal Not Available [facility] [place] [address] [place], [address], 11/10/2017 12:44:49 11/09/20 17 11/10/2017 urina lysis compl ete, refle x cultu re specific gravity 1.016 1.001- 1.035 normal Not Available [facility] [place] [address] [facility] [place], [address], 11/10/2017 12:44:49 11/09/20 17 11/10/2017 urina lysis compl ete, refle x cultu re pH 6.5 5.0-8. 0 normal Not Available [facility] [place] [address] [place], [address], 11/10/2017 12:44:49 11/09/20 17 11/10/2017 urina lysis compl ete, refle x cultu re glucose NEGATI VE negati ve normal Not Available [facility] [place] [address] [facility] [place], [address], 11/10/2017 12:44:49 11/09/20 17 11/10/2017 urina lysis compl ete, refle x cultu re bilirubin NEGATI VE negati ve normal Not Available [facility] [place] [facility] [address] [facility] [place], [address], 11/10/2017 12:44:49 11/09/20 17 11/10/2017 urina lysis compl ete, refle x cultu re ketones NEGATI VE negati ve normal Not Available [facility] [place] [address] [place], [address], 11/10/2017 12:44:49 11/09/20 17 11/10/2017 urina lysis compl ete, refle x cultu re occult blood 2+ negati ve abnormal Not Available [facility] [place] [address] [facility] [place], [address], 11/10/2017 12:44:49 11/09/20 17 11/10/2017 urina lysis compl ete, refle x cultu re protein NEGATI VE negati ve normal Not Available [facility] [place] [address] [place], [address], 11/10/2017 12:44:49 11/09/20 17 11/10/2017 urina lysis compl ete, refle x cultu re nitrite NEGATI VE negati ve normal Not Available [facility] [place] [address] [place], [address], 11/10/2017 12:44:49 11/09/20 17 11/10/2017 urina lysis compl ete, refle x cultu re leukocyte esterase NEGATI VE negati ve normal Not Available [facility] [address] [place], [address], 11/10/2017 12:44:49 11/09/20 17 11/10/2017 urina lysis compl ete, refle x cultu re WBC 0-5 /hpf < or = 5 normal Not Available [facility] [place] [address], [place], [address], 11/10/2017 12:44:49 11/09/20 17 11/10/2017 urina lysis compl ete, refle x cultu re RBC 0-2 /hpf < or = 2 normal Not Available [facility] [place] [facility] [address] [facility] [address], [place], [address], 11/10/2017 12:44:49 11/09/20 17 11/10/2017 urina lysis compl ete, refle x cultu re squamous epithelial cells 0-5 /hpf < or = 5 Not Available [facility] [place] [facility] [address], [place], [address], 11/10/2017 12:44:49 11/09/20 17 11/10/2017 urina lysis compl ete, refle x cultu re bacteria FEW /hpf none seen abnormal Not Available [facility] [place] [facility] [address], [place], [address], 11/10/2017 12:44:49 11/09/20 17 11/10/2017 urina lysis compl ete, refle x cultu re hyaline cast NONE SEEN /lpf none seen normal Not Available [facility] [place] [facility] [address], [place], [address], 11/10/2017 12:44:49 11/09/20 17 11/10/2017 cultu re, urine reflexive urine culture NO CULTUR E INDICA EMIGDIO Not Available [facility] [place] [facility] [address], [place], [address], 11/10/2017 12:44:50 05/24/20 18 05/24/2018 CBC w/ auto diff WBC 6.7 10 4.5-11 .5 Not Available [facility] (Lab Registration) [address], [place], [address], 05/24/2018 13:45:49 05/24/20 18 05/24/2018 CBC w/ auto diff RBC 4.69 10 4.25-5 .57 Not Available [facility] (Lab Registration) [address] [place], [address], 05/24/2018 13:45:49 05/24/20 18 05/24/2018 CBC w/ auto diff HGB 14.2 g/dL 12.0-1 5.7 Not Available [facility] (Lab Registration) [address] [place], [address], 05/24/2018 13:45:49 05/24/20 18 05/24/2018 CBC w/ auto diff HCT 41.9 % 36.0-4 7.0 Not Available [facility] (Lab Registration) [address] [place], [address], 05/24/2018 13:45:49 05/24/20 18 05/24/2018 CBC w/ auto diff MCV 89.3 fL 80-95 Not Available [facility] (Lab Registration) [address] [place], [address], 05/24/2018 13:45:49 05/24/20 18 05/24/2018 CBC w/ auto diff MCH 30.3 pg 27.0-3 4.0 Not Available [facility] (Lab Registration) [address] [place], [address], 05/24/2018 13:45:49 05/24/20 18 05/24/2018 CBC w/ auto diff MCHC 33.9 g/dL 32.0-3 6.0 Not Available [facility] (Lab Registration) [address] [place], [address], 05/24/2018 13:45:49 05/24/20 18 05/24/2018 CBC w/ auto diff RDW 13.6 % 12.3-1 5.1 Not Available [facility] (Lab Registration) [address] [place], [address], 05/24/2018 13:45:49 05/24/20 18 05/24/2018 CBC w/ auto diff platelet count 246 10 150-45 0 Not Available [facility] (Lab Registration) [address] [place], [address], 05/24/2018 13:45:49 05/24/20 18 05/24/2018 CBC w/ auto diff granulocyte% 51.8 % 40-75 Not Available [facility] (Lab Registration) [address] [place], [address], 05/24/2018 13:45:49 05/24/20 18 05/24/2018 CBC w/ auto diff lymphocyte% 34.9 % 15-57 Not Available [facility] (Lab Registration) [address] [place], [address], 05/24/2018 13:45:49 05/24/20 18 05/24/2018 CBC w/ auto diff monocyte% 9.3 % 4.0-12 .0 Not Available [facility] (Lab Registration) [address] [place], [address], 05/24/2018 13:45:49 05/24/20 18 05/24/2018 CBC w/ auto diff eosinophil% 3.2 % 0.0-4. 0 Not Available [facility] (Lab Registration) [address] [place], [address], 05/24/2018 13:45:49 05/24/20 18 05/24/2018 CBC w/ auto diff basophil% 0.8 % 0.0-1. 0 Not Available [facility] (Lab Registration) [address] [place], [address], 05/24/2018 13:45:49 05/24/20 18 05/24/2018 CBC w/ auto diff granulocyte# 3.45 10 1.8-8. 62 Not Available [facility] (Lab Registration) [address], [place], [address], 05/24/2018 13:45:49 05/24/20 18 05/24/2018 CBC w/ auto diff lymphocyte# 2.32 10 0.76-5 .40 Not Available [facility] (Lab Registration) [address], [place], [address], 05/24/2018 13:45:49 05/24/20 18 05/24/2018 CBC w/ auto diff monocyte# 0.62 10 0.18-1 .38 Not Available [facility] (Lab Registration) [address], [place], [address], 05/24/2018 13:45:49 05/24/20 18 05/24/2018 CBC w/ auto diff eosinophil# 0.21 10 0.00-0 .46 Not Available [facility] (Lab Registration) [address], [place], [address], 05/24/2018 13:45:49 05/24/20 18 05/24/2018 CBC w/ auto diff basophil# 0.05 10 0.-0.1 1 Not Available [facility] (Lab Registration) [address], [place], [address], 05/24/2018 13:45:49 05/24/20 18 05/24/2018 CBC w/ auto diff manual differential NO Not Available [facility] (Lab Registration) [address], [place], [address], 05/24/2018 13:45:49 05/24/20 18 05/24/2018 CBC w/ auto diff note Unles s other barajas noted testi ng perfo rmed at: [facility] [address] [place] [address] [phone] James lowry MD CLIA: [id number] Not Available [facility] (Lab Registration) [address] [place], [address], 05/24/2018 13:45:49 05/24/20 18 05/24/2018 tropo rusty I, serum or plasm a troponin <0.04 NG/mL 0.0-0. 056 Not Available [facility] (Lab Registration) [address] [place], [address], 05/24/2018 14:05:17 05/24/20 18 05/24/2018 tropo rusty I, serum or plasm a note Unles s other barajas noted testi ng perfo rmed at: [facility] [employer] [facility] [employer] [place] [phone] James lowry MD CLIA: [id number] Not Available [facility] (Lab Registration) [address] [place], [address], 05/24/2018 14:05:17 05/24/20 18 05/24/2018 BMP, serum or plasm a sodium 137 mmol/ L 136-14 5 Not Available [facility] (Lab Registration) [address] [place], [address], 05/24/2018 14:05:18 05/24/20 18 05/24/2018 BMP, serum or plasm a potassium 3.8 mmol/ L 3.5-5. 1 Not Available [facility] (Lab Registration) [address] [place], [address], 05/24/2018 14:05:18 05/24/20 18 05/24/2018 BMP, serum or plasm a chloride 100 mmol/ L 98-107 Not Available [facility] (Lab Registration) [address] [place], [address], 05/24/2018 14:05:18 05/24/20 18 05/24/2018 BMP, serum or plasm a carbon dioxide 31 mmol/ L 21-32 Not Available [facility] (Lab Registration) [address] [place], [address], 05/24/2018 14:05:18 05/24/20 18 05/24/2018 BMP, serum or plasm a anion gap 6.0 Not Available [facility] (Lab Registration) [address] [place], [address], 05/24/2018 14:05:18 05/24/20 18 05/24/2018 BMP, serum or plasm a glucose 100 mg/dL 70-110 Not Available [facility] (Lab Registration) [address] [place], [address], 05/24/2018 14:05:18 05/24/20 18 05/24/2018 BMP, serum or plasm a blood urea nitrogen 13 mg/dL 7-18 Not Available [facility] (Lab Registration) [address] [place], [address], 05/24/2018 14:05:18 05/24/20 18 05/24/2018 BMP, serum or plasm a creatinine 0.7 mg/dL 0.6-1. 0 Not Available [facility] (Lab Registration) 9 [address] [address], [address], 05/24/2018 14:05:18 05/24/20 18 05/24/2018 BMP, serum or plasm a BUN/creatini ne ratio 18.6 ratio 9-21 Not Available [facility] (Lab Registration) [address] [place], [address], 05/24/2018 14:05:18 05/24/20 18 05/24/2018 BMP, serum or plasm a estimated glom filtration rate 89 mL/mi n >60- Not Available [facility] (Lab Registration) [address] [place], [address], 05/24/2018 14:05:18 05/24/20 18 05/24/2018 BMP, serum or plasm a calcium 8.9 mg/dL 8.5-10 .1 Not Available [facility] (Lab Registration) [address] [place], [address], 05/24/2018 14:05:18 05/24/20 18 05/24/2018 BMP, serum or plasm a note Unles s other barajas noted testi ng perfo rmed at: [facility] [address] [place], [place] [id number] [phone] James lowry MD CLIA: [id number] Not Available [facility] (Lab Registration) [address] [place], [address], 05/24/2018 14:05:18 05/24/20 18 05/24/2018 D-dim er, quant , plasm a D-dimer quantitative 503.57 NG/mL 0-500 critical high Not Available [facility] (Lab Registration) [address] [place], [address], 05/24/2018 14:20:24 05/24/20 18 05/24/2018 D-dim er, quant , plasm a note Jorge s other barajas noted testi ng perfo rmed at: [facility] [address] [place], [place] [id number] [phone] James lowry MD CLIA: [id number] Not Available [facility] (Lab Registration) [address] [place], [address], 05/24/2018 14:20:24 05/24/20 18 05/24/2018 XR, chest , 2 view [facility] [place] [address] Phone: Fax: Name: SHILOH VILLALTA Exam Date: 05/24/20 18 : 953 Age 67 Gender : F Access ion: [id number] Physic jeison: Eddie Nunez opher Facili ty: [facility] Facili ty HSV: Outpat ient Exam: [...] Thank you for referr SHILOH Martin to [facility]. Legall y authen ticate d by IRIS Cloud MD 2017-05-24 13:44: 38 CC'ed Logic: Orderi ng Provid er: EMMANUEL RAMIREZ CC Provid er: LUCIA Donaldson Attend ing Provid er: EMMANUEL RAMIREZ Referr ing Provid er: EMMANUEL RAMIREZ Admitt ing Provid er: EMMANUEL carrizales [facility] (Radiology) [address] [place], [address], 05/26/2018 16:33:06 05/24/20 18 05/24/2018 CT, chest , w/ contr ast [facility] [address] [place] [address] [place] [address] Phone: Fax: Name: SHILOH VILLALTA Exam Date: 05/24/20 18 : 9[birth year] Age 67 Gender : F Access ion: [id number] Physic jeison: Eddie Nunez opher Facili ty: [facility] Facili ty HSV: Outpat ient Exam: [...] jessica sheth Transc ribed On: 05/24/20 18 3:36 PM Electr onical ly signed by: EMILY SHETH 05/24/20 18 Thank you for referr ing SHILOH VILLALTA to [facility]. Legall y authen ticate d by IRIS Cloud MD 2017-0 05-24 15:36: 07 CC'ed Logic: Orderi ng Provid er: EMMANUEL RAMIREZ CC Provid er: LUCIA Donaldson Attend ing Provid er: EMMANUEL RAMIREZ Referr ing Provid er: EMMANUEL RAMIREZ Admitt ing Provid er: EMMANUEL carrizales [facility] (Radiology) [address] [place] [address] [place], [address], 05/26/2018 16:33:07 Result Notes Documentation Provider Name and Address Organization Details Recorded Time Xr, Chest, 2 View : [address] [place] [address] Name: SHILOH VILLALTA Exam Date: 05/24/2018 : 1950 Age 67 Gender: F Physician: Cornel Nunez Facility: [facility] Facility HSV: Outpatient Exam: CHEST PA [...] Thank you for referring SHILOH VILLALTA to [facility]. Legally authenticated by IRIS Cloud MD 2018-05-24 13:44:38 CC'ed Logic: Ordering Provider: EMMANUEL KELLEY CC Provider: TRUPTI ROGEL Attending Provider: EMMANUEL KELLEY Referring Provider: EMMANUEL KELLEY Admitting Provider: EMMANUEL Lyles MD [address] [place] [address], [address], [place], [address] 05/26/2018 16:33:06 Ct, Chest, W/ Contrast : [address] [place] [address] Name: SHILOH VILLALTA Exam Date: 05/24/2018 : 1950 Age 67 Gender: F Physician: Cornel Nunez Facility: [facility] Facility HSV: Outpatient Exam: CT CHEST [...] Thank you for referring SHILOH VILLALTA to [facility]. Legally authenticated by IRIS Cloud MD 2018-05-24 15:36:07 CC'ed Logic: Ordering Provider: EMMANUEL KELLEY CC Provider: TRUPTI ROGEL Attending Provider: EMMANUEL KELLEY Referring Provider: EMMANUEL KELLEY Admitting Provider: EMMANUEL Lyles MD [address], [address] [place] [address], [place] [facility] 05/26/2018 16:33:07 Problems Name Problem SNOMED Code Status Onset Date Resolution Date Notes Provider Name and Address Organization Details Recorded Time Backache 705773577 Anastasiia Lyles MD [address] [address], [place] [facility] 6 17:17:55 Acute exacerbation of chronic bronchitis 170402215 Active Carmen Lyles MD [address] [address], [place] [facility] 6 17:17:55 Arthritis of knee 172942190 Anastasiia Lyles MD [address] [address], [place] [facility] 6 17:17:55 Urinary tract infectious disease 85523124 Active Carmen Lyles MD [address] [address], [place] [facility] 6 17:17:55 Neck pain 64011624 Anastasiia Lyles MD [address] [address], [facility] 6 17:17:55 Blood in urine 95434093 Anastasiia Lyles MD [address] [address], [place] [facility] 6 17:17:55 Headache 08646013 Anastasiia Lyles MD [address] [address], [place] [facility] 6 17:17:55 Low back strain 427278637 Anastasiia Lyles MD [address] [address], [facility] - [facility] 6 17:56:00 Strain of back muscle 288768253 Anastasiia Lyles MD [address] [address], [place] - [facility] 6 17:17:55 Acute sciatica 452662540 Anastasiia Lyles MD [address] [address], [place] [facility] 6 17:17:55 Hyperlipidemia 76617433 Anastasiia Lyles MD [address] [address], [facility] - [facility] 6 17:56:00 Fatigue 50261945 Anastasiia Lyles MD [address] [address], [place] [facility] 6 17:17:55 Body mass index 30+ - obesity 968828802 Anastasiia Lyles MD [address] [address], [place] [facility] 6 17:56:00 Obesity 015790124 Anastasiia Lyles MD [address] [address], [place] [facility] 17:17:55 Acute sinusitis 60246000 Anastasiia Lyles MD [address] [address], [place] [facility] 6 17:17:55 Dyspnea 263583678 Anastasiia Lyles MD [address] [address], [place] [facility] 6 17:17:55 Knee pain Active Carmen Lyles MD [address] [address], [facility] 6 17:17:55 Chronic obstructive pulmonary disease 29445079 Anastasiia Lyles MD [address] [address], [facility] 6 17:56:00 Benign essential hypertension 9288333 Active Carmen Lyles MD [address] [address], [place] [facility] 6 17:56:00 Anxiety state 089402519 Anastasiia Lyles MD [address] [address], [facility] 6 17:17:55 Tibial collateral ligament bursitis 99446070 Anastasiia Lyles MD [address] [address], [facility] 6 17:17:55 Acute bronchitis 76327331 Anastasiia Lyles MD [address] [address], [facility] 6 17:17:55 Depressive disorder 46198152 Anastasiia Lyles MD [address] [address], [facility] 6 17:56:00 Tobacco dependence syndrome 61766912 Anastasiia Lyles MD [address] [address], [facility] 6 17:56:00 Problem Notes None recorded. Procedures Surgical History Date Name Laterality Status Provider Name and Address Organization Details Recorded Time 01/15/20 15 Greater Occipital Nerve Block(s) completed Carmen Lyles MD [address] [address], [place], [address], [place] [facility] 01/15/2015 21:21:00 11/22/19 14 Joint Replacement completed Carmen Lyles MD [address], [address], [place] [facility] 01/15/2015 10:06:33 09/07/20 11 Corticosteroid Injection completed Carmen Lyles MD [address], [address] [place] [address], [place] [facility] 09/07/2011 18:21:41 11/22/19 06 Hysterectomy completed Not Available [facility] 10/06/2011 04:58:32 11/22/19 01 Orthopaedic Surgery completed Carmen Lyles MD [address], [address] [place] [address], [place] [facility] 01/15/2015 10:06:33 Appendectomy completed Not Available [facility] 10/06/2011 04:58:32 Colonoscopy completed Carmen Lyles MD [address], [address] [place] [address], [place] [facility] 01/15/2015 10:06:33 Imaging Results None recorded. Procedure Notes None recorded. Medical Equipment None Reported. Allergies Allergen ID Allergen Name Allergen Category Reaction Reaction Severity Criticality Documentation Date Start Date Code Code System Note Provider Name and Address Organization Details Recorded Time 2105 Product containin g penicilli n (product) medicatio n Not available Not available Not available 09/07/2011 05880 8001 SNOMED Not Available [facility] 1 04:58:31 Medications Name Sig Start Date [...] completed 06-20-[address] trupti hathaway, commodity specialist Not Available Not Available Not Available ciproflox [...] blood by Pulse oximetry Body temperature Systolic And Diastolic Provider Name and Address Organization Details Last Updated DateTime 8 157.48 cm 31.5 kg/m2 49122.9 9 g 82 /min 95 % 95 % 97.8 [degF] 105/67 mm[Hg] [facility] 8 09:52:08 Date Recorded Body height Body mass index (BMI) Body weight Heart rate Oxygen saturation Oxygen saturation in Arterial blood by Pulse oximetry Body temperature Systolic And Diastolic Provider Name and Address Organization Details Last Updated DateTime 8 157.48 cm 31.8 kg/m2 88414.0 7 g 102 /min 96 % 96 % 98.3 [degF] 111/63 mm[Hg] [facility] 8 14:14:44 Date Recorded Heart rate Oxygen saturation Oxygen saturation in Arterial blood by Pulse oximetry Systolic And Diastolic Provider Name and Address Organization Details Last Updated DateTime 07/14/2018 64 /min 96 % 96 % 140/82 mm[Hg] [facility] 8 12:07:26 Date Recorded Body height Body mass index (BMI) Body weight Heart rate Oxygen saturation Oxygen saturation in Arterial blood by Pulse oximetry Body temperature Systolic And Diastolic Provider Name and Address Organization Details Last Updated DateTime 7 157.48 cm 31.5 kg/m2 05023.5 9 g 95 /min 96 % 96 % 98.2 [degF] 151/92 mm[Hg] [facility] 7 15:50:59 Date Recorded Body height Body mass index (BMI) Body weight Heart rate Oxygen saturation Oxygen saturation in Arterial blood by Pulse oximetry Body temperature Systolic And Diastolic Provider Name and Address Organization Details Last Updated DateTime 7 157.48 cm 31.3 kg/m2 85586.4 g 98 /min 95 % 95 % 98.3 [degF] 116/77 mm[Hg] [facility] 7 09:54:34 Date Recorded Body height Body mass index (BMI) Body weight Heart rate Oxygen saturation Oxygen saturation in Arterial blood by Pulse oximetry Body temperature Systolic And Diastolic Provider Name and Address Organization Details Last Updated DateTime 8 157.48 cm 31 kg/m2 83334.5 1 g 91 /min 94 % 94 % 98.6 [degF] 140/84 mm[Hg] [facility] 8 15:14:19 Social History Question Answer Notes LastModified by Organizat ion Details LastModified Time Tobacco Smoking Status Current Every Day Smoker [facility] 09/17/2020 03:11:18 Do You Have An Advance Directive? No [id number] Information not available 09/17/2020 Animal Exposure? Yes Information not available 01/25/2014 Auto Related Injury? No Information not available 01/25/2014 Is Blood Transfusion Acceptable In An Emergency? Yes [id number] Information not available 09/17/2020 What Is Your Level Of Caffeine Consumption? Moderate [id number] Information not available 09/17/2020 Diabetes No Information no t available 01/25/2014 What Type Of Diet Are You Following? REGULAR [id number] Information not available 09/17/2020 Education [employer] X 6 Mos Information not available 09/07/2011 Family History Of Heart Disease? Yes Information not available 01/25/2014 Which Of Your Hands Is Dominant? Right [id number] Information not available 09/17/2020 High Blood Pressure Yes Information not available 01/25/2014 High Cholesterol Yes Information not available 01/25/2014 Live Alone Or With Others? With Others Information not available 01/25/2014 Marital Status Information not available 10/06/2011 What Was The Date Of Your Most Recent Tobacco Screening? 11/04/2018 [id number] Information not available 09/17/2020 How Many Children Do You Have? 1 [id number] Information not available 09/17/2020 Do You Use Your Seat Belt Or Car Seat Routinely? Yes [id number] Information not available 09/17/2020 Seat Belts Used Routinely Yes Information not available 01/25/2014 Smoke Alarm In Home Yes Information not available 01/25/2014 How Much Tobacco Do You Smoke? 0.25 PPD Only Smoking 2 Cigarettes Per Day [id number] Information not available 09/17/2020 General Stress Level High Information not available 01/25/2014 Do You Use Sunscreen Routinely? Yes [id number] Information not available 09/17/2020 Work Related Injury? No Information not available 01/25/2014 Sex: Unknown Functional Status Question Answer Note LastModified by Organizat ion Details LastModified Time What is your level of alcohol consumption? None [id number] Information not available 09/17/2020 Are you currently employed? No [id number] Information not available 09/17/2020 Are you able to care for yourself independently ? 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 Occasional [id number] Information not available 09/17/2020 Mental Status None [...] previo usly record ed as Heart Attack ([place]) Not available 03/19/2016 17:40:30 Medical History Condition Response Muscle, Joint, or Bone Problems Y Hypertension Y COPD Y Gynecological History Statement/Question Response Age at First Child 20 Obstetrics History GPAL:G 0 P 0 0 0 0 Immunizations Vaccine Type Date Status Note Provider Nam e and Address Organization Details Recorded Time Influenza, split virus, trivalent, preservative 3 completed Carmen Lyles MD [address] [place] [address], [address], [place] [facility] 01/25/2014 18:05:30 pneumococcal polysaccharide PPV23 8 completed Not Available [facility] 12/09/2019 02:12:07 Past Encounters Encounter ID Performer Location Encounter Start Date Encounter Closed Date Diagnosis/Indication Diagnosis SNOMED-CT Code Diagnosis ICD10 Code Diagnosis IMO Codes Diagnosis Note [id number] Carmen Lyles MD [facility] [address] [place] [address] 09/07/2011 16:34:54 09/09/2011 03:51:07 [id number] Bradley Ramos MD [facility] [address] [place] [address] 12/17/2011 08:29:08 12/17/2011 11:25:53 [id number] Carmen Lyles MD [address] [address] 01/12/2012 16:06:44 01/13/2012 09:45:49 [id number] Bradley Ramos MD [address] [address] 07/15/2012 15:39:17 07/15/2012 17:29:37 [id number] Carmen Lyles MD [address] [address] 04/25/2013 10:14:58 04/25/2013 17:02:22 [id number] Carmen Lyles MD [address] [address] 01/25/2014 15:56:54 01/25/2014 18:23:26 Knee pain 55698062 Benign ess ential hypertension 8259965 Anxiety state 621605814 Backache 467565973 [id number] Carmen Lyles MD [address] [address] 08/20/2014 14:53:59 08/20/2014 17:35:34 Urinary tract infectious disease 92675971 Neck pain 67353885 Arthritis of knee 885424555 Chronic ob structive pulmonary disease 07359027 Backache 861500127 [id number] Carmen Lyles MD [address] [address] 01/15/2015 10:01:15 01/16/2015 08:47:20 Neck pain 57416329 Benign ess ential hypertension 2950468 Anxiety state 856930834 Headache 47715428 [id number] Carmen Lyles MD [address] [address] 04/08/2015 14:22:13 04/09/2015 16:36:18 Low back strain 405958254 Strain of back muscle 898355576 Acute sciatica 047522284 [id number] Carmen Lyles MD [address] [address] 11/05/2015 14:22:55 11/05/2015 16:35:31 Acute exacerbation of chronic bronchitis 619219797 J44.1 [id number] Carmen Lyles MD [address] [address] 03/19/2016 15:37:30 03/20/2016 17:16:12 Adult health examination 234167709 Z00.01 Benign ess ential hypertension 9576453 I10 Chronic ob structive pulmonary disease 09516032 J44.9 Depressive disorder 3548 9007 F32.9 Hyperlipidemia 68483074 E78.5 Low back strain 11719038 1 S39.012S Tobacco de pendence syndrome 63367159 F17.290 Body mass index 30+ - obesity 733284710 Z68.31 Screening mammography 24 793939 Z12.31 [id number] Carmen Lyles MD [facility] [place] [address] 7 06/16/2016 15:34:38 06/16/2016 18:05:26 Acute exacerbation of chronic obstructive pulmonary disease 718441796 J44.1 [id number] Carmen Lyles MD [facility] [place] [address] 7 01/15/2017 09:04:03 01/15/2017 16:16:30 Acute exacerbation of chronic obstructive pulmonary disease 127662792 J44.1 Allergic rhinitis 432220 04 J30.9 [id number] Carmen Lyles MD [address] [address] 03/09/2017 10:44:06 03/10/2017 08:40:02 Chest pain 87671489 R07.9 Hyperlipidemia 86756995 E78.5 Benign ess ential hypertension 2254859 I10 Chronic ob structive pulmonary disease 22428156 J44.9 [id number] Carmen Lyles MD [facility] [address] [address] 07/27/2017 15:02:14 07/27/2017 17:46:27 Acute sialoadenitis 665245801 K11.21 Chronic ob structive pulmonary disease 50526044 J44.9 [id number] Carmen Lyles MD [facility] [address] [address] 08/16/2017 09:48:27 08/16/2017 12:10:06 Acute exacerbation of chronic obstructive pulmonary disease 331352359 J44.1 [id number] Carmen Lyles MD [facility] [address] [place] [address] 11/25/2017 09:29:46 11/29/2017 17:20:25 Adult health examination 838014061 Z00.01 Active or passive immunization 817925376 Z23 Screening for malignant neoplasm of colon 211837340 Z12.11 Smoker 66944608 F17.200 Screening mammography 24 772798 Z12.31 Essential hypertension 63315584 I10 Hyperlipidemia 51293411 E78.5 Body mass index 30+ - obesity 037336288 Z68.31 Depression screening 171 241850 Z13.89 Depressive disorder 3548 9007 F32.9 F32.4 At low risk for fall 439 870430 Z91.81 [id number] Carmen Lyles MD [facility] [address] [place] [address] 02/03/2018 14:01:19 02/04/2018 08:15:51 Tendinitis of finger 766654330 M77.9 Cellulitis of finger of left hand 7794508994 0053352 L03.012 [id number] Carmen Lyles MD [facility] [address] [place] [address] 11/04/2018 14:57:26 11/07/2018 15:20:54 Pain of joint of hand 156340740 M25.549 History of bilateral total knee replacement 0108950533 164652 Z96.653 Fall W19.XXXA Hyperlipidemia 03174887 E78.5 Essential hypertension 72680535 I10 Fatigue 44527011 R53.83 Health Concerns Section Related Observation LastModified by Organization Detai ls LastModified Time None Recorded Concern Status LastModified by Organization Details LastModified Time None Recorded Advance Directives Directive N: Payers Insurance Date Sequence Insurance Name Policy Number Policy Rayo Covered Member ID Rayo Member ID Guarantor Name 11/04/2018 2 [place] [employer] - FFS/TRADITIO NAL Shiloh Villalta [id number] Shlioh Villalta 10/07/2020 1 [place] Shiloh Villalta [id number] Shiloh Villalta Notes Date Note Type Note Provider Name and Address Organization Details Recorded Time 07/27/2017 text/html She has noted some swelling in the left lower jaw and has some dental issues. She also is a little short of breath Carmen Lyles MD [address] [address], [place], [address], [facility] 07/27/2017 16:17:54 08/16/2017 text/html has been sick with sinus and asthma flaring too for over a week Having shortness of breath from wheezing and used her nebulizer. Carmen Lyles MD [address], [address], [facility] 08/16/2017 10:29:04 [...] steroid and antibiotic Carmen Lyles MD [address] [address], [place], [address], [facility] 02/03/2018 22:54:19 11/04/2018 text/html fell over a trash bag and hit on her knees over [...] hurt so much. Carmen Lyles MD [address] [facility], [address] [address], [place], [address], [facility] 11/06/2018 23:54:25 OBGyn Episode No OBEpisode recorded.
--- OUTSIDE RECORDS SUMMARY | 2025-09-06 09:20 | XMS_ITS | Clinical Summary ---
Author Organization Healthcare Address [address] [place] [address] Care Team Providers Care Vehicle Mechanic Name Role Phone Pcp, No Primary Care [...] (three) times a day. Active HYDROcodone-acet aminophen ([place]) 7.5-325 MG tablet every 4 (four) hours [...] Diagnosed Date Carotid stenosis 06/23/2022 Dizzy 06/23/2022 ASCVD (arteriosclerotic cardiovascular disease) 06/23/2022 Essential hypertension 06/23/2022 Nicotine dependence 06/23/2022 Chest pressure 06/23/2022 Diastolic dysfunction 06/23/2022 Anxiety and depression 06/23/2022 Resolved Problems Problem Noted Date Diagnosed Date Resolved Date Shortness of breath 06/23/2022 08/12/20 Chest pain 06/23/2022 08/12/2025 Family History Medical History Relation Name Comments [...] [facility]-Bone Density Scan 1950 [facility]-Depression Screening 1950 [facility]-Infant/Child/Adol SDOH Screenings 1950 [facility]- SDOH Screenings 1970 [facility]-Adult SDOH Screenings 1970 [facility]-DTaP,Tdap,and Td Vaccine s (1 - Tdap) 1971 CT Colonography 1997 Colonoscopy 1997 FIT-DNA 1997 FIT 1997 FOBT 1997 Sigmoidoscopy 1997 [facility]-Colorectal Cancer Screening 1997 [facility]-Zoster Vaccines (1 of 2) 2002 [facility]-Pneumococcal Vaccine: 50 + Years (2 of 2 - PCV) 11/25/2018 11/25/2017 [id number] Vaccine (3 - season) 2025 02/28/2021, 01/28/2021 [facility]-Influenza Vaccine (#1) 2025 11/22/2012 [facility]-RSV Vaccine: 60+ Years o r (1 - 1-dose 75+ series) 2027 HPV Vaccines Aged Out No longer eligi [...] age to complete this topic Insurance [place]ICARE [place] Care Teams Vehicle Mechanic Relationship Specialty Start Date End Date Pcp, Paula [address] [place] [address] PCP - General Family Medicine 07/22/22
--- OUTSIDE RECORDS SUMMARY | 2025-09-06 09:20 | XMS_ITS | Continuity of Care Document ---
Author Organization [facility] [address] [place] [address] [place] [id number] Care Team Providers Care Bird Raiser Name Role Phone SHERRIELOGANMARISELA Monzon Primary Care Provider Assessment Encounter Date Assessment Date Assessment LastModified by Organization Details LastModified Time 08/08/2025 08/08/2025 Global Risk Assessment Score: High Risk. High Risk Assessment: High Doses of Opioids to Manage Pain (>30 mg Morphine or equivalent) Multiple Pain or Medical Conditions (i.e., back, head and fibromyalgia) Multiple Physicians treating patient's conditions Lab work reviewed: UDS of 04/09/2025 reviewed and is appropriate. [place] (prescription drug monitoring report): As of 08/08/2025 reviewed and is appropriate Last fill 07/12/2025 Inappropriate due to: Medication compliance: According to [...] are as follows none [email or web address] Not available 08/08/2025 08:48:12 Plan of Treatment Reminders Order Date Submit Date Provider Last Modified By Organization Details Last Modified Time Details Appointments Office Visit15 2024 08:15A M Trina Mcduffie, TANK Not available Not available Not available Lab drug screen, urine - Meds: hydrocodo ne neurontin nws 2024 025 IFEANYI Hernandez MD [facility] ([facility]), [address] [place], [address], 08/14/2025 15:44:07 Referral None recorded. Procedures None recorded. Surgeries None recorded. Imaging None recorded. Medication Orders gabapenti n 600 mg tablet 2024 025 [facility], [address] [place] [address], [id number], 08/08/2025 17:19:44 hydrocodo ne 7.5 mg-acetam inophen 325 mg tablet 2024 025 [facility], [address] [place] [address], [id number], 08/08/2025 17:18:05 hydrocodo ne 7.5 mg-acetam inophen 325 mg tablet 2024 025 [facility], [address] [place] [address], [id number], 08/08/2025 17:24:44 Patient TargetsNo targets recorded. Patient Instructions Encounter Date Encounter Id Patient Instructions Last Modified By Organization Details Last Modified Time 08/08/2025 [id number] 1) Pain management: Will cont pain meds [...] tx's at this time [email or web address] Not available 08/08/2025 08:38:40 Patient seen today incident to a physician s previously established diagnosis and plan of care. Follow-up care provided today under the plan of care of: Eloise Valles MD and supervision of: Cornel Gil MD Discussed goals of treatment are to reduce the major symptoms, including chronic widespread pain, fatigue, insomnia, and cognitive dysfunction. Patient educated on disease, treatment approaches, good sleep practices, and importance of treating comorbidities that contribute to symptoms. Discussed importance of exercise program. [email or web address] Not available 08/26/2025 20:43:56 Reason for Referral None Reported. Results Created Date Observation Date Name Description Value Unit Range Abnormal Flag Note LastModifiedBy Organization Detail LastModifiedTime 08/08/2008/08/2025 CBC abnormal status high Not Available Jessica Hernandez MD [facility] ([facility]) [address] [place] [address], [id number], 08/09/2025 10:44:14 08/08/20 25 08/08/2025 CBC abnormal status low Not Available Jessica Hernandez MD [facility] ([facility]) [address] [place] [address], [id number], 08/09/2025 10:44:14 08/08/20 25 08/08/2025 OPIAT E CONFI RMATI ON,UR abnormal status abnormal Not Available Jessica Hernandez MD [facility] ([facility]) [address] [place] [address], [id number], 08/14/2025 15:44:08 08/08/20 25 08/09/2025 GGT GGT 13 IU/L 0-60 Not Available Roseline Hernandez MD [facility] ([facility]) [address] [place] [address], [id number], 08/09/2025 10:44:14 08/08/20 25 08/09/2025 HEPAT IC FUNCT ION PANEL (7) protein, total 6.6 g/dL 6.0-8. 5 Not Available Roseline Hernandez MD [facility] ([facility]) [address] [place] [address], [id number], 08/09/2025 10:44:13 08/08/20 25 08/09/2025 HEPAT IC FUNCT ION PANEL (7) bilirubin, total 0.4 mg/dL 0.0-1. 2 Not Available Roseline Hernandez MD [facility] (In House [facility]) [address] [place], [address], 08/09/2025 10:44:13 08/08/20 25 08/09/2025 HEPAT IC FUNCT ION PANEL (7) bilirubin, direct 0.18 mg/dL 0.00-0 .40 Not Available Roseline Hernandez MD [facility] (In House [facility]) [address] [place] [address], [id number], 08/09/2025 10:44:13 08/08/20 25 08/09/2025 HEPAT IC FUNCT ION PANEL (7) alkaline phosphatase 74 IU/L 49-135 Ple ase note refer ence inter marcellus snell e Not Available Roseline Hernandez MD [facility] (In House Lab) [address] [place] [address], [id number], 08/09/2025 10:44:13 08/08/20 25 08/09/2025 HEPAT IC FUNCT ION PANEL (7) AST (SGOT) 19 IU/L 0-40 Not Available Roseline Hernandez MD [facility] (In House [facility]) [address] [place] [address], [id number], 08/09/2025 10:44:13 08/08/20 25 08/09/2025 HEPAT IC FUNCT ION PANEL (7) ALT (SGPT) 19 IU/L 0-32 Not Available Roseline Hernandez MD [facility] (In House [facility]) [address] [place] [address], [id number], 08/09/2025 10:44:13 08/08/20 25 08/09/2025 RENAL PANEL (10) glucose 83 mg/dL 70-99 Not Available Roseline Hernandez MD [facility] (In House [facility]) [address] [place] [address], [id number], 08/09/2025 10:44:12 08/08/20 25 08/09/2025 RENAL PANEL (10) BUN 9 mg/dL 8-27 Not Available Roseline Hernandez MD [facility] (In House [facility]) [address] [place], [address], 08/09/2025 10:44:12 08/08/20 25 08/09/2025 RENAL PANEL (10) creatinine 0.59 mg/dL 0.57-1 .00 Not Available Roseline Hernandez MD [facility] (In House [facility]) [address] [place], [address], 08/09/2025 10:44:12 08/08/20 25 08/09/2025 RENAL PANEL (10) BUN/creatini ne ratio 15 12-28 Not Available Jessica Hernandez MD [facility] (In House [facility]) [address] [place], [address], 08/09/2025 10:44:12 08/08/20 25 08/09/2025 RENAL PANEL (10) sodium 136 mmol/ L 134-14 4 Not Available Roseline Hernandez MD [facility] ([facility]) [address] [place] [address], [id number], 08/09/2025 10:44:12 08/08/20 25 08/09/2025 RENAL PANEL (10) potassium 3.3 mmol/ L 3.5-5. 2 low Not Available Roseline Hernandez MD [facility] ([facility] House [facility]) [address] [place] [address], [id number], 08/09/2025 10:44:12 08/08/20 25 08/09/2025 RENAL PANEL (10) chloride 90 mmol/ L 96-106 low Not Available Roseline Hernandez MD [facility] ([facility]) [address] [place] [address], [id number], 08/09/2025 10:44:12 08/08/20 25 08/09/2025 RENAL PANEL (10) carbon dioxide, total 32 mmol/ L 20-29 high Not Available Roseline Hernandez MD [facility] ([facility]) [address] [place] [address], [id number], 08/09/2025 10:44:12 08/08/20 25 08/09/2025 RENAL PANEL (10) calcium 9.4 mg/dL 8.7-10 .3 Not Available Roseline Hernandez MD [facility] ([facility]) [address] [place], [address], 08/09/2025 10:44:12 08/08/20 25 08/09/2025 RENAL PANEL (10) phosphorus 4.2 mg/dL 3.0-4. 3 Not Available Roseline Hernandez MD [facility] ([facility]) [address] [place], [address], 08/09/2025 10:44:12 08/08/20 25 08/09/2025 RENAL PANEL (10) albumin 4.3 g/dL 3.8-4. 8 Not Available Roseline Hernandez MD [facility] (In House [facility]) [address] [place], [address], 08/09/2025 10:44:12 08/08/20 25 08/11/2025 GABAP ENTIN (NEUR ONTIN ) , URINE gabapentin 711.3 ug/mL This test was devel oped and its perfo rmanc e bryon cteri stics deter mined by [facility]. It has not been clear ed or appro nickie by the Food and Drug Admin istra tion. Not Available Roseline Hernandez MD [facility] (In House [facility]) [address] [place], [address], 08/14/2025 15:44:07 08/08/2008/08/2025 UDM [facility] RP-U1 0 UNBUN D+ALC +SVT please note: Commen t Drug test resul ts shoul d be inter prete d in the chuck xt of clini tera infor edith Muñoz nt metab olic varia bles, speci fic drug chemi stry, and speci men bryon cteri stics can affec t test outco me. Techn ical consu ltati on is avail able if a test resul t is incon siste nt with an expec dustin outco me. Email : clini caldr [email or web address] Phone : [phone] . Drug brand s, if liste d herei n, are trade mina of their respe ctive hospitality host s. Not Available Roseline Hernandez MD [facility] ([facility]) [address] [place] [address], [id number], 08/14/2025 15:44:07 08/08/20 25 08/10/2025 UDM [facility] RP-U1 0 UNBUN D+ALC +SVT amphetamines screen, urine Negati ve NG/mL cutoff =1000 Not Available Roseline Hernandez MD [facility] ([facility]) [address] [place] [address], [address], 08/14/2025 15:44:07 08/08/20 25 08/10/2025 UDM [facility] RP-U1 0 UNBUN D+ALC +SVT barbiturates screen, urine Negati ve NG/mL cutoff =200 Not Available Roseline Hernandez MD [facility] ([facility]) [address] [place] [address], [id number], 08/14/2025 15:44:07 08/08/20 25 08/10/2025 UDM [facility] RP-U1 0 UNBUN D+ALC +SVT benzodiazepi sloane screen, urine Negati ve NG/mL cutoff =200 Not Available Roseline Hernandez MD [facility] ([facility]) [address] [place] [address], [address], 08/14/2025 15:44:07 08/08/20 25 08/10/2025 UDM [facility] RP-U1 0 UNBUN D+ALC +SVT cannabinoid screen, urine Negati ve NG/mL cutoff =20 Not Available Roseline Hernandez MD [facility] ([facility]) [address] [place] [address], [address], 08/14/2025 15:44:07 08/08/20 25 08/10/2025 UDM [facility] RP-U1 0 UNBUN D+ALC +SVT cocaine (metab.) screen, urine Negati ve NG/mL cutoff =300 Not Available Roseline Hernandez MD [facility] ([facility]) [address] [place] [address], [address], 08/14/2025 15:44:07 08/08/20 25 08/10/2025 UDM [facility] RP-U1 0 UNBUN D+ALC +SVT opiate screen, urine See Final Result s NG/mL cutoff =300 Opiat e test inclu antione Codei ne, Morph ine, Richford morph one, Richford codon e. Not Available Roseline Hernandez MD [facility] ([facility]) [address] [place] [address], [id number], 08/14/2025 15:44:07 08/08/20 25 08/10/2025 UDM [facility] RP-U1 0 UNBUN D+ALC +SVT 6-acetylmorp kelsy, urine Negati ve NG/mL cutoff =10 Not Available Roseline Hernandez MD [facility] ([facility]) [address] [place] [address], [id number], 08/14/2025 15:44:07 08/08/20 25 08/10/2025 UDM [facility] RP-U1 0 UNBUN D+ALC +SVT oxycodone/ox ymorphone, urine Negati ve NG/mL cutoff =100 Test inclu antione Oxyco done and Oxymo rphon e Not Available Roseline Hernandez MD [facility] ([facility]) [address] [place] [address], [address], 08/14/2025 15:44:07 08/08/20 25 08/10/2025 UDM [facility] RP-U1 0 UNBUN D+ALC +SVT methadone screen, urine Negati ve NG/mL cutoff =300 Not Available Roseline Hernandez MD [facility] ([facility]) [address] [place] [address], [address], 08/14/2025 15:44:07 08/08/20 25 08/10/2025 UDM [facility] RP-U1 0 UNBUN D+ALC +SVT buprenorphin e, urine Negati ve NG/mL cutoff =10 Not Available Roseilne Hernandez MD [facility] ([facility]) [address] [place] [address], [address], 08/14/2025 15:44:07 08/08/20 25 08/10/2025 UDM [facility] RP-U1 0 UNBUN D+ALC +SVT ethanol, urine Negati ve mg/dL cutoff =0.020 Not Available Roseline Hernandez MD [facility] ([facility]) [address] [place], [address], 08/14/2025 15:44:07 08/08/20 25 08/10/2025 UDM [facility] RP-U1 0 UNBUN D+ALC +SVT creatinine, urine 47.1 mg/dL 20.0-3 00.0 Not Available Roseline Hernandez MD [facility] ([facility]) [address] [place], [address], 08/14/2025 15:44:07 08/08/20 25 08/10/2025 UDM [facility] RP-U1 0 UNBUN D+ALC +SVT pH, urine 5.7 4.5-8. 9 Not Available Roseline Hernandez MD [facility] ([facility]) [address] [place], [address], 08/14/2025 15:44:07 Result Notes None recorded. Problems Name Problem SNOMED Code Status Onset Date Resolution Date Notes Provider Name and Address Organization Details Recorded Time Opioid dependenc e 91548095 Active 2018 (F11.20)O pioid dependenc e, uncomplic ated Not Available [facility] 2 22:14:48 Long-term current use of opiate analgesic drug 16947108060 4108 Active 2018 (Z79.891) longterm (current) use of opiate analgesic [facility] Current drug user 279269551 Active 2018 (Z79.899) Other skilled nursing (current) drug therapy Not [facility]:14:49 Cervical spondylos is without myelopath y 411741395 Active 2018 (M47.812) Spondylos is without myelopath y or radiculop athy, cervical region Not Available [facility] 2 22:14:49 Spondylos is without myelopath y 61184730 Active 2018 (M47.816) Spondylos is without myelopath y or radiculop athy, lumbar region Not Available [facility] 2 22:14:49 Fibromyal gigi 514866230 Active 2018 (M79.7)Fi bromyalgi a Not Available [facility] 2 22:14:49 Pain of left shoulder joint 24074093391 272177 Active 2019 (M25.512) Pain in left shoulder Not Available [facility] 2 22:14:49 Problem Notes None recorded. Medical Equipment None Reported. Allergies Allergen ID Allergen Name Allergen Category Reaction Reaction Severity Criticality Documentation Date Start Date Code Code System Note Provider Name and Address Organization Details Recorded Time Product containin g penicilli n (product) medicatio n Not available Not available Not available 03/24/20222018 03109 8001 SNOMED Not Available [facility] 2 22:01:05 53319 amoxicill in medicatio n Not available Not available Not available 03/24/20222018 723 RxNorm Not Available [facility] 2 22:01:05 57478 PPD black rubber mix environme nt Not available Not available Not available 03/24/20222018 TB SKIN TEST. CHEST TIGHT NESS Not Available [facility] 2 22:01:05 Medications Name Sig Start Date [...] No t Available cetirizine 10 mg tablet take 1 tablet(10 mg) orally daily active Not Available Not [...] active Not Available Not Available Not Available meloxicam 7.5 mg tablet take 1 tablet ORAL route 2 times per day As needed active Not Available Not Available No t Available losartan 100 mg-hydrochl orothiazide 25 mg tablet TAKE 1 TABLET BY MOUTH EVERY DAY active Not Available Not Available No t Available benzonatate 100 mg capsule TAKE 1 CAPSULE BY MOUTH THREE TIMES A DAY NEEDED FOR COUGH active Not Available Not Available No t Available hydrocodone 7.5 mg-acetamin ophen 325 mg tablet Take 1 tablet 4 times a day as needed active Not Available Not Available No t Available lansoprazol e 30 mg capsule,del ayed release take 1 capsule(3 0 MG) orally daily active Not Available Not Available No t Available promethazin e 25 mg tablet Take 1 tablet every 4 hours by oral route. active Not Available Not Available No t Available diclofenac potassium 50 mg tablet take 1 tablet(50 mg) orally twice a day As Needed for pain active Not Available Not Available No t Available montelukast 10 mg tablet take 1 tablet(10 mg) orally daily active Not Available Not [...] 2 weeks and then three times weekly skilled nursing. active Not Available Not Available No t [...] Body temperature Respiratory rate Heart rate Systolic And Diastolic Provider Name and Address Organization Details Last Updated DateTime 5 157.48 cm 23.8 kg/m2 71796.0 1 g 97.9 [degF] 16 /min 70 /min 109/67 mm[Hg] [facility] 08:23:58 Social History Question Answer Notes LastModified by [...] available 05/14/2022 What is your occupation? Disabled [email or web address] Information not available 03/24/2022 Mental Status None [...] PF, 30 mcg/0.3 mL dose 05/14/2022 completed [facility] 05/14/2022 10:15:29 Past Encounters Encounter ID Performer Location Encounter Start Date Encounter Closed Date Diagnosis/Indication Diagnosis SNOMED-CT Code Diagnosis ICD10 Code Diagnosis IMO Codes Diagnosis Note [id number] Trina Ivana Mcduffie, TENDERIZER TENDER [address] [place] [address] 08/08/2025 08:07:47 08/17/2025 15:09:20 Long-term current use of opiate analgesic drug 4628594782 60174 Z79.891 098134 Diagnostic /Lab: Order Presumptiv e UDT (necessary [...] tramadol, fentanyl, tapentadol and carisoprod ol). Fibromyalgia 002339230 M 79.7 Cervical s pondylosis without myelopathy 614826958 M47.812 Pain of le ft shoulder joint 9561227699 7369264 M25.512 Spondylosi s without myelopathy 56483483 M47.816 Chronic ne uropathic pain 740468925 M79.2 Health Concerns Section Related Observation LastModified by Organization Detai ls LastModified Time None Recorded Concern Status LastModified by Organization Details LastModified Time None Recorded Payers Encounter Date Sequence Insurance Name Policy Number Policy Rayo Covered Member ID Rayo Member ID Guarantor Name 08/08/2025 2 [place] [employer] [place]/TRADITIO NAL Shiloh Villalta [id number] Shiloh Villalta 08/08/2025 1 [employer] (MEDICARE REPLACEMENT/ ADVANTAGE - HMO) Shiloh Villalta [id number] Shiloh Villalta Notes Date Note Type Note Provider Name and Address Organization Details Recorded Time 08/08/2025 text/html Patient is followed for chronic neck and low back pain. She says that she is doing better than the last visit. The neck pain radiates to her left [...] will not be able to do these things.Pain increases with activity and better with heat, ice and salon pa's spray.Pain medication gives partial relief. No SE's. Trina Mcduffie, TENDERIZER TENDER [address] [facility], [place], [address], [facility] 08/26/2025 20:44:00 OBGyn Episode No OBEpisode recorded.
--- OUTSIDE RECORDS SUMMARY | 2025-09-06 09:20 | XMS_ITS | Clinical Summary ---
Author Organization [facility] Address [address] [place] [id number] Care Team Providers Care Quality And Reliability Engineer Name Role Phone Provider, No Known Primary Care Provider Unavail able Allergies Active Allergy Reactions Criticality Noted Date Comments Amoxicillin Hives Medium 06/23/2022 Levofloxacin Unknown (See Comments) Low 06/23/2022 Tizanidine Hives Medium 06/23/2022 Medications albuterol sulfate HFA 108 (90 Base) MCG/ACT inhaler INHALE 1 PUFF EVERY 4 HOURS NEEDED FOR SHORTNESS OF BREATH OR WHEEZING. 3 Active aspirin 81 MG EC tablet Take 81 mg by mouth Daily. Active vitamin D (ERGOCALCIFEROL ) 1.25 MG (10697 UT) capsule capsule Take 1 capsule by mouth 1 (One) Time Per Week. 3 Active gabapentin (NEURONTIN) 100 MG capsule 600 mg 3 (Three) Times a Day. Active HYDROcodone-asia taminophen (NORCO) 7.5-325 MG per tablet hydrocodone 7.5 mg-acetaminophen 325 mg tablet Active lansoprazole (PREVACID) 30 MG capsule Take 30 mg by mouth. Active loratadine (CLARITIN) 10 MG tablet Take 10 mg by mouth Daily. Active losartan-hydroc hlorothiazide (HYZAAR) 100-25 MG per tablet Take 1 tablet by mouth Daily. Active rosuvastatin (CRESTOR) 20 MG tablet Take 20 mg by mouth. 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 Not on file 08/2023 Does Anyone Keep You from Co ntacting Others or Doint Things Outside the Home? Not on file 08/31/2023 Physical Sign of Abuse Present Not on file 1 Housing Stability Answer Date Recorded Current Living Arrangements Not on file 08/22 Potentially Unsafe Housing Conditions Not on phoebe e 08/31/2023 Family and Community Support Answer Raad e Recorded Help with Day-to-Day Activities Not on file 08/31/2023 Lonely or Isolated Not on file 08/31/2023 Employment Answer Date Recorded Do you want help finding or keeping work or a rocio b? Not on file 08/31/2023 Disabilities Answer Date Recorded Concentrating, Remembering, or Making Decisions Difficulty Not on file 08/31/2023 Doing Errands Independently Difficulty Not on fi le 08/31/2023 Education Answer Date Recorded Help with school or training? Not on file Preferred Language Not on file 08/31/2023 Comments Unknown Sex and Gender Information Value Date Recorded Sex Assigned at Not on file Legal Sex Female 1:40 PM EDT Gender Identity Not on file Sexual Orientation Not on file Last Filed Vital Signs Vital Sign Reading Time Taken Comments Blood Pressure 130/68 12/29/2022 10:52 AM EST Pulse - - Temperature - - Respiratory Rate - - Oxygen Saturation - - Inhaled Oxygen Concentration - - Weight 75.5 kg (166 lb 6.4 oz) 12/29/2022 10:52 AM EST Height 155 cm (5' 1.02 ) 12/29/2022 10:52 AM EST Body Mass Index 31.42 12/29/2022 10:52 AM EST Plan of Treatment Health Maintenance Due Date Last Done Comments DXA SCAN 1952 TDAP/TD VACCINES (1 - Tdap) 1971 MAMMOGRAM 1992 COLOGUARD 1997 COLON CANCER SCREENING 5 YEAR SIGMOIDOSCOPY 1997 COLONOSCOPY 1997 [address] CANCER SCREENING 1997 CT COLONOGRAPHY 1997 FECAL OCCULT BLOOD TEST 1997 FIT Testing (1 year) 1997 ZOSTER VACCINE (1 of 2) 2002 Pneumococcal Vaccine 50+ (2 of 2 - PCV) 11/25/2018 0 11/25/2017 ANNUAL WELLNESS VISIT 12/29/2022 HEPATITIS C SCREENING 12/29/2022 INFLUENZA VACCINE 06/22/2025 11/22/2012 COVID-19 Vaccine ( season) 2025 Insurance MEDICARE A & B [place] Care Teams Quality And Reliability Engineer Relationship Specialty Start Date End Date Provider, No Known [facility] [place] [address] PCP - General 12/29/22
--- OUTSIDE RECORDS SUMMARY | 2025-09-06 09:20 | XMS_ITS | Data Portability ---
Author Organization [facility] Office Address [address] [address] Care Team Providers Care Spray Booth Operator Name Role Phone MARISELA MELARA Primary Care Provider Assessment Encounter Date Assessment Date Assessment LastModified by Organization Details LastModified Time 12/11/2024 12/11/2024 Global Risk Assessment Score: High [...] follows none [email or web address] Not available 04/09/2025 08:32:46 06/11/2025 06/11/2025 Global Risk Assessment Score: High Risk. High Risk Assessment: High Doses of Opioids to Manage Pain (>30 mg Morphine or equivalent) Multiple Pain or Medical Conditions (i.e., back, head and fibromyalgia) Multiple Physicians treating patient's conditions Lab work reviewed: UDS of 04/09/2025 reviewed and is appropriate. 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 Not available Not available Not available Lab drug screen, urine - Meds: hydrocodo ne neurontin nws 2024 025 IFEANYI Hernandez MD [facility] ([facility]), [address] [place], [address], 08/14/2025 15:44:07 drug screen, urine - Meds: 2024 025 IFEANYI Hernandez MD [facility] ([facility]), [address] [place] [address], [id number], 04/19/2025 11:44:00 CBC w/ auto diff 2024 025 [email or web address] Roseline Hernandez MD [facility] ([facility]), [address] [place] [address], [id number], 04/17/2025 08:58:40 hepatic function panel, serum 2024 025 [email or web address] [id number] Roseline Hernandez MD [facility] ([facility]), [address] [place], [address], 04/30/2025 07:24:29 gamma-glu tamyl transfera se (ggt), serum 2024 025 [email or web address] Roseline Hernandez MD [facility] ([facility]), [address] [place], [address], 04/17/2025 08:58:40 venipunct ure 2024 025 [email or web address] 159 Roseline Hernandez MD [facility] ([facility]), [address] [place], [address], 04/30/2025 07:24:29 drug screen, urine - Meds: HYDROCODO NE GABAPENTI N AND PROMETHAZ INE ARLENE 2024 025 IFEANYI Hernandez MD [facility] ([facility]), [address] [place], [address], 12/19/2024 16:42:59 Referral None recorded. Procedures None recorded. Surgeries None recorded. Imaging None recorded. Medication Orders gabapenti n 600 mg tablet 2024 025 [facility], [address] [place] [address], [id number], 08/08/2025 17:19:44 hydrocodo ne 7.5 mg-acetam inophen 325 mg tablet 2024 025 [facility], [address] [place] [address], [id number], 08/08/2025 17:18:05 hydrocodo ne 7.5 mg-acetam inophen 325 mg tablet 2024 025 [facility], [address] [place] [address], [id number], 08/08/2025 17:24:44 gabapenti n 600 mg tablet 2024 025 [facility], [address] [place] [address], [id number], 07/13/2025 12:45:04 hydrocodo ne 7.5 mg-acetam inophen 325 mg tablet 2024 025 [facility], [address] [place] [address], [id number], 06/12/2025 12:08:05 hydrocodo ne 7.5 mg-acetam inophen 325 mg tablet 2024 025 [facility], [address] [place] [address], [id number], 07/13/2025 12:45:05 gabapenti n 600 mg tablet 2024 025 [facility], [address] [place] [address], [id number], 05/15/2025 09:44:35 hydrocodo ne 7.5 mg-acetam inophen 325 mg tablet 2024 025 [facility], [address] [place] [address], [id number], 04/13/2025 09:46:46 hydrocodo ne 7.5 mg-acetam inophen 325 mg tablet 2024 025 [facility], [address] [place] [address], [id number], 04/17/2025 15:22:05 gabapenti n 600 mg tablet 2024 025 [facility], [address] [place] [address], [id number], 03/16/2025 10:04:46 hydrocodo ne 7.5 mg-acetam inophen 325 mg tablet 2024 025 [facility], [address] [place] [address], [id number], 02/14/2025 10:20:27 hydrocodo ne 7.5 mg-acetam inophen 325 mg tablet 2024 025 [facility], [address] [place] [address], [id number], 03/16/2025 10:04:45 gabapenti n 600 mg tablet 2024 025 [facility], [address] [place] [address], [id number], 12/12/2024 14:22:37 hydrocodo ne 7.5 mg-acetam inophen 325 mg tablet 2024 025 [facility], [address] [place] [address], [id number], 12/12/2024 14:22:38 hydrocodo ne 7.5 mg-acetam inophen 325 mg tablet 2024 025 [facility], [address] [place] [address], [id number], 12/12/2024 14:22:37 Patient TargetsNo targets recorded. Patient Instructions Encounter Date Encounter Id Patient Instructions Last Modified By Organization Details Last Modified Time 12/11/2024 [id number] 1) Pain management: Will cont pain meds [...] program. [email or web address] Not available 12/11/2024 08:55:26 02/09/2025 [id number] 1) Pain management: Will cont pain meds [...] program. [email or web address] Not available 02/09/2025 08:29:50 04/09/2025 [id number] 1) Pain management: Will cont pain meds as Rx'ed. Patient was asked about any other scripts needing to be sent in and scripts sent if needed 2) PT: Cont HEP as tolerated; Encourage use of Moist Heat, Massage, Acupressure, Acupuncture, Meditation and /or Pool therapy to aid pain management 3) BH: Cont with local as planned; Encourage Activity in Moderation with [...] exercise program. [email or web address] Not available 04/09/2025 08:40:12 06/11/2025 [id number] 1) Pain management: Will cont pain meds as Rx'ed. Patient was asked about any other scripts needing to be sent in and scripts sent if needed 2) PT: Cont HEP as tolerated; Encourage use of Moist Heat, Massage, Acupressure, Acupuncture, Meditation and /or Pool therapy to aid pain management 3) BH: Cont with local as planned; Encourage Activity in Moderation with Rest Breaks 4) IP: Pt not interested in IP tx's at this time msentelle Not available 06/11/2025 08:36:28 Patient seen today incident to a physician [...] importance of exercise program. [email or web address] Not available 06/11/2025 08:36:39 08/08/2025 [id number] 1) Pain management: Will cont pain meds [...] Abnormal Flag Note LastModifiedBy Organization Detail LastModifiedTime 12/11/19 25 12/11/2024 OPIAT E CONFI RMATI ON,UR abnormal status abnormal Not Available Jessica Hernandez MD [facility] ([facility]) [address] [place], [address], 12/19/2024 16:43:01 12/11/19 25 12/19/2024 GABAP ENTIN (NEUR ONTIN ) , URINE gabapentin 685.3 ug/mL This test was devel oped and its perfo rmanc e bryon cteri stics deter mined by [employer]. It has not been clear ed or appro nickie by the Food and Drug Admin istra tion. Not Available Roseline Hernandez MD [facility] ([facility]) [address] [facility], [place], [address], 12/19/2024 16:43:00 12/11/19 25 12/11/2024 UD LABCO [...] expec dustin outco me. Email : [email or web address] Phone : [phone] . Drug brand s, if liste d herei n, are trade mina of their respe ctive skoog operator s. Not Available Roseline Hernandez MD [facility] ([facility]) [address] [facility], [place], [address], 12/19/2024 16:42:59 12/11/19 25 12/12/2024 UD [facility] RP-U1 0 UNBUN D+ALC +SVT amphetamines screen, urine Negati ve NG/mL cutoff =1000 Not Available Roseline Hernandez MD [facility] ([facility]) [address] [facility], [place], [address], 12/19/2024 16:42:59 12/11/19 25 12/12/2024 UD LABCO RP-U1 0 UNBUN D+ALC +SVT barbiturates screen, urine Negati ve NG/mL cutoff =200 Not Available Roseline Hernandez MD [facility] ([facility]) [address] [place] [address], [address], 12/19/2024 16:42:59 12/11/19 25 12/12/2024 UDM [facility] RP-U1 0 UNBUN D+ALC +SVT benzodiazepi sloane screen, urine Negati ve NG/mL cutoff =200 Not Available Roseline Hernandez MD [facility] ([facility]) [address] [place] [address], [address], 12/19/2024 16:42:59 12/11/19 25 12/12/2024 UDM [facility] RP-U1 0 UNBUN D+ALC +SVT cannabinoid screen, urine Negati ve NG/mL cutoff =20 Not Available Roseline Hernandez MD [facility] ([facility]) [address] [place] [address], [address], 12/19/2024 16:42:59 12/11/19 25 12/12/2024 UDM [facility] RP-U1 0 UNBUN D+ALC +SVT cocaine (metab.) screen, urine Negati ve NG/mL cutoff =300 Not Available Roseline Hernandez MD [facility] ([facility]) [address] [place] [address], [address], 12/19/2024 16:42:59 12/11/19 25 12/12/2024 UDM [facility] RP-U1 0 UNBUN D+ALC +SVT opiate screen, urine See Final Result s NG/mL cutoff =300 Opiat e test inclu antione Codei ne, Morph ine, [place] morph one, [place] codon e. Not Available Roseline Hernandez MD [facility] ([facility]) [address] [place] [address], [address], 12/19/2024 16:42:59 12/11/19 25 12/12/2024 UDM [facility] RP-U1 0 UNBUN D+ALC +SVT 6-acetylmorp kelsy, urine Negati ve NG/mL cutoff =10 Not Available Roseline Hernandez MD [facility] ([facility]) [address] [place], [address], 12/19/2024 16:42:59 12/11/19 25 12/12/2024 UDM [facility] RP-U1 0 UNBUN D+ALC +SVT oxycodone/ox ymorphone, urine Negati ve NG/mL cutoff =100 Test inclu antione Oxyco done and Oxymo rphon e Not Available Roseline Hernandez MD [facility] ([facility]) [address] [place] [address], [id number], 12/19/2024 16:42:59 12/11/19 25 12/12/2024 UDM [facility] RP-U1 0 UNBUN D+ALC +SVT methadone screen, urine Negati ve NG/mL cutoff =300 Not Available Roseline Hernandez MD [facility] ([facility]) [address] [place] [address], [address], 12/19/2024 16:42:59 12/11/19 25 12/12/2024 UDM [facility] RP-U1 0 UNBUN D+ALC +SVT buprenorphin e, urine Negati ve NG/mL cutoff =10 Not Available Roseline Hernandez MD [facility] ([facility]) [address] [place] [address], [address], 12/19/2024 16:42:59 12/11/19 25 12/12/2024 UDM [facility] RP-U1 0 UNBUN D+ALC +SVT ethanol, urine Negati ve mg/dL cutoff =0.020 Not Available Roseline Hernandez MD [facility] ([facility]) [address] [place] [address], [address], 12/19/2024 16:42:59 12/11/19 25 12/12/2024 UDM [facility] RP-U1 0 UNBUN D+ALC +SVT creatinine, urine 85.4 mg/dL 20.0-3 00.0 Not Available Roseline Hernandez MD [facility] ([facility]) [address] [place] [address], [address], 12/19/2024 16:42:59 12/11/19 25 12/12/2024 UDM [facility] RP-U1 0 UNBUN D+ALC +SVT pH, urine 6.6 4.5-8. 9 Not Available Roseline Hernandez MD [facility] ([facility]) [address] [place], [address], 12/19/2024 16:42:59 04/09/20 25 04/09/2025 OPIAT E CONFI RMATI ON,UR abnormal status abnormal Not Available Jessica Hernandez MD [facility] ([facility]) [address] [facility], [place], [address], 04/19/2025 11:44:01 04/09/20 25 04/19/2025 GABAP ENTIN (NEUR ONTIN ) , URINE gabapentin 566.3 ug/mL This test was jada conner and its perfo rmanc e bryon cteri stics deter mined by [employer]. It has not been clear ed or appro nickie by the Food and Drug Admin istra tion. Not Available Roseline Hernandez MD [facility] ([facility]) [address] [facility], [place], [address], 04/19/2025 11:44:01 04/09/20 25 04/09/2025 UDM [facility] RP-U1 0 UNBUN D+ALC +SVT [...] me. Email : [email or web address] [email or web address] Phone : [phone] . Drug brand s, if liste d herei n, are trade mina of their respe ctive skoog operator s. Not Available Roseline Hernandez MD [facility] ([facility]) [address] [place], [address], 04/19/2025 11:44:00 04/09/20 25 04/10/2025 UDM [facility] RP-U1 0 UNBUN D+ALC +SVT amphetamines screen, urine Negati ve NG/mL cutoff =1000 Not Available Roseline Hernandez MD [facility] ([facility]) [address] [place] [address], [address], 04/19/2025 11:44:00 04/09/20 25 04/10/2025 UDM [facility] RP-U1 0 UNBUN D+ALC +SVT barbiturates screen, urine Negati ve NG/mL cutoff =200 Not Available Roseline Hernandez MD [facility] ([facility]) [address] [place] [address], [address], 04/19/2025 11:44:00 04/09/20 25 04/10/2025 UDM [facility] RP-U1 0 UNBUN D+ALC +SVT benzodiazepi sloane screen, urine Negati ve NG/mL cutoff =200 Not Available Roseline Hernandez MD [facility] ([facility]) [address] [place] [address], [address], 04/19/2025 11:44:00 04/09/20 25 04/10/2025 UDM [facility] RP-U1 0 UNBUN D+ALC +SVT cannabinoid screen, urine Negati ve NG/mL cutoff =20 Not Available Roseline Hernandez MD [facility]) [address] [place] [address], [address], 04/19/2025 11:44:00 04/09/20 25 04/10/2025 UDM [facility] RP-U1 0 UNBUN D+ALC +SVT cocaine (metab.) screen, urine Negati ve NG/mL cutoff =300 Not Available Roseline Hernandez MD [facility] ([facility]) [facility] [place], [address], 04/19/2025 11:44:00 04/09/20 25 04/10/2025 UDM [facility]CO RP-U1 0 UNBUN D+ALC +SVT opiate screen, urine See Final Result s NG/mL cutoff =300 Opiat e test inclu antione Codei ne, Morph ine, [place] morph one, [place] codon e. Not Available Roseline Hernandez MD [facility] ([facility]) [address] [place] [address], [id number], 04/19/2025 11:44:00 04/09/20 25 04/10/2025 UDM [facility] RP-U1 0 UNBUN D+ALC +SVT 6-acetylmorp kelsy, urine Negati ve NG/mL cutoff =10 Not Available Roseline Hernandez MD [facility] ([facility]) [address] [place] [address], [address], 04/19/2025 11:44:00 04/09/20 25 04/10/2025 UDM [facility] RP-U1 0 UNBUN D+ALC +SVT oxycodone/ox ymorphone, urine Negati ve NG/mL cutoff =100 Test inclu antione Oxyco done and Oxymo rphon e Not Available Roseline Hernandez MD [facility] ([facility]) [address] [place] [address], [address], 04/19/2025 11:44:00 04/09/20 25 04/10/2025 UDM [facility] RP-U1 0 UNBUN D+ALC +SVT methadone screen, urine Negati ve NG/mL cutoff =300 Not Available Roseline Hernandez MD [facility] ([facility]) [address] [place] [address], [address], 04/19/2025 11:44:00 04/09/20 25 04/10/2025 UDM [facility] RP-U1 0 UNBUN D+ALC +SVT buprenorphin e, urine Negati ve NG/mL cutoff =10 Not Available Roseline Hernandez MD [facility] ([facility]) [address] [place] [address], [address], 04/19/2025 11:44:00 04/09/20 25 04/10/2025 UDM [facility] RP-U1 0 UNBUN D+ALC +SVT ethanol, urine Negati ve mg/dL cutoff =0.020 Not Available Roseline Hernandez MD [facility] ([facility]) [address] [place], [address], 04/19/2025 11:44:00 04/09/20 25 04/10/2025 UDM [facility] RP-U1 0 UNBUN D+ALC +SVT creatinine, urine 40.8 mg/dL 20.0-3 00.0 Not Available Roseline Hernandez MD [facility] ([facility]) [address] [place] [address], [address], 04/19/2025 11:44:00 04/09/20 25 04/10/2025 UDM [facility] RP-U1 0 UNBUN D+ALC +SVT pH, urine 7.2 4.5-8. 9 Not Available Roseline Hernandez MD [facility] ([facility]) [address] [place] [address], [address], 04/19/2025 11:44:00 08/08/20 25 08/08/2025 CBC abnormal status high Not Available Jessica Hernandez MD [facility] ([facility]) [address] [place] [address], [address], 08/09/2025 10:44:14 08/08/20 25 08/08/2025 CBC abnormal status low Not Available Jessica Hernandez MD [facility] ([facility]) [address] [place] [address], [address], 08/09/2025 10:44:14 08/08/20 25 08/08/2025 OPIAT E CONFI RMATI ON,UR abnormal status abnormal Not Available Jessica Hernandez MD [facility] ([facility]) [address] [place] [address], [address], 08/14/2025 15:44:08 08/08/20 25 08/09/2025 GGT GGT 13 IU/L 0-60 Not Available Roseline Hernandez MD [facility] ([facility]) [address] [place] [address] [place], [address], 08/09/2025 10:44:14 08/08/2008/09/2025 HEPAT IC FUNCT ION PANEL (7) protein, total 6.6 g/dL 6.0-8. 5 Not Available Roseline Hernandez MD [facility] ([facility]) [address] [place] [address], [address], 08/09/2025 10:44:13 08/08/2008/09/2025 HEPAT IC FUNCT ION PANEL (7) bilirubin, total 0.4 mg/dL 0.0-1. 2 Not Available Roseline Hernandez MD [facility] ([facility]) [address] [place] [address], [address], 08/09/2025 10:44:13 08/08/20 25 08/09/2025 HEPAT IC FUNCT ION PANEL (7) bilirubin, direct 0.18 mg/dL 0.00-0 .40 Not Available Roseline Hernandez MD [facility] ([facility]) [address] [place] [address], [address], 08/09/2025 10:44:13 08/08/2008/09/2025 HEPAT IC FUNCT ION PANEL (7) alkaline phosphatase 74 IU/L 49-135 Ple ase note refer ence inter marcellus snell e Not Available Roseline Hernandez MD [facility] ([facility]) [address] [place] [address], [address], 08/09/2025 10:44:13 08/08/2008/09/2025 HEPAT IC FUNCT ION PANEL (7) AST (SGOT) 19 IU/L 0-40 Not Available Roseline Hernandez MD [facility] ([facility]) [address] [place] [address], [address], 08/09/2025 10:44:13 08/08/20 25 08/09/2025 HEPAT IC FUNCT ION PANEL (7) ALT (SGPT) 19 IU/L 0-32 Not Available Roseline Hernandez MD [facility] ([facility]) [address] [place], [address], 08/09/2025 10:44:13 08/08/20 25 08/09/2025 RENAL PANEL (10) glucose 83 mg/dL 70-99 Not Available Roseline Hernandez MD [facility] ([facility]) [address] [place] [address], [address], 08/09/2025 10:44:12 08/08/20 25 08/09/2025 RENAL PANEL (10) BUN 9 mg/dL 8-27 Not Available Roseline Hernandez MD [facility] ([facility]) [address] [place] [address], [address], 08/09/2025 10:44:12 08/08/20 25 08/09/2025 RENAL PANEL (10) creatinine 0.59 mg/dL 0.57-1 .00 Not Available Roseline Hernandez MD [facility] ([facility]) [address] [place] [address], [address], 08/09/2025 10:44:12 08/08/20 25 08/09/2025 RENAL PANEL (10) BUN/creatini ne ratio 15 12-28 Not Available Jessica Hernandez MD [facility] ([facility]) [address] [place] [address], [address], 08/09/2025 10:44:12 08/08/20 25 08/09/2025 RENAL PANEL (10) sodium 136 mmol/ L 134-14 4 Not Available Roseline Hernandez MD [facility] ([facility]) [address] [place] [address], [address], 08/09/2025 10:44:12 08/08/20 25 08/09/2025 RENAL PANEL (10) potassium 3.3 mmol/ L 3.5-5. 2 low Not Available Roseline Hernandez MD [facility] ([facility]) [address] [place] [address], [address], 08/09/2025 10:44:12 08/08/20 25 08/09/2025 RENAL PANEL (10) chloride 90 mmol/ L 96-106 low Not Available Roseline Hernandez MD [facility] ([facility]) [address] [place], [address], 08/09/2025 10:44:12 08/08/20 25 08/09/2025 RENAL PANEL (10) carbon dioxide, total 32 mmol/ L 20-29 high Not Available Roseline Hernandez MD [facility] ([facility]) [address] [place], [address], 08/09/2025 10:44:12 08/08/20 25 08/09/2025 RENAL PANEL (10) calcium 9.4 mg/dL 8.7-10 .3 Not Available Roseline Hernandez MD [facility] ([facility]) [address] [place], [address], 08/09/2025 10:44:12 08/08/20 25 08/09/2025 RENAL PANEL (10) phosphorus 4.2 mg/dL 3.0-4. 3 Not Available Roseline Hernandez MD [facility] ([facility]) [address] [place], [address], 08/09/2025 10:44:12 08/08/20 25 08/09/2025 RENAL PANEL (10) albumin 4.3 g/dL 3.8-4. 8 Not Available Roseline Hernandez MD [facility] ([facility]) [address] [place], [address], 08/09/2025 10:44:12 08/08/20 25 08/11/2025 GABAP ENTIN (NEUR ONTIN ) , URINE gabapentin 711.3 ug/mL This test was jada conner and its perfo rmanc e bryon cteri stics deter mined by [employer]. It has not been clear ed or appro nickie by the Food and Drug Admin istra tion. Not Available Roseline Hernandez MD [facility] ([facility]) [address] [place], [address], 08/14/2025 15:44:07 08/08/2008/08/2025 UDM LAB[facility] RP-U1 0 [...] expec dustin outco me. Email : [email or web address] [email or web address] Phone : [phone] . Drug brand s, if liste d herei n, are trade mina of their respe ctive skoog operator s. Not Available Roseline Hernandez MD [facility] ([facility]) [address] [place] [address], [address], 08/14/2025 15:44:07 08/08/20 25 08/10/2025 UD [facility] RP-U1 0 UNBUN D+ALC +SVT amphetamines screen, urine Negati ve NG/mL cutoff =1000 Not Available Roseline Hernandez MD [facility] ([facility]) [address] [place] [address], [address], 08/14/2025 15:44:07 08/08/20 25 08/10/2025 UD [facility] RP-U1 0 UNBUN D+ALC +SVT barbiturates screen, urine Negati ve NG/mL cutoff =200 Not Available Roseline Hernandez MD [facility] ([facility]) [address] [place] [address], [address], 08/14/2025 15:44:07 08/08/20 25 08/10/2025 UD [facility] RP-U1 0 UNBUN D+ALC +SVT benzodiazepi sloane screen, urine Negati ve NG/mL cutoff =200 Not Available Roseline Hernandez MD [facility] ([facility]) [address] [place] [address], 79[address], 08/14/2025 15:44:07 08/08/20 25 08/10/2025 UDM [facility] RP-U1 0 UNBUN D+ALC +SVT cannabinoid screen, urine Negati ve NG/mL cutoff =20 Not Available Roseline Hernandez MD [facility] ([facility]) [address] [place] [address], 918[address], 08/14/2025 15:44:07 08/08/20 25 08/10/2025 UDM [facility] RP-U1 0 UNBUN D+ALC +SVT cocaine (metab.) screen, urine Negati ve NG/mL cutoff =300 Not Available Roseline Hernandez MD [facility] ([facility]) [address] [place] [address], 79131, 08/14/2025 15:44:07 08/08/20 25 08/10/2025 UDM [facility] RP-U1 0 UNBUN D+ALC +SVT opiate screen, urine See Final Result s NG/mL cutoff =300 Opiat e test inclu antione Codei ne, Morph ine, [place] morph one, [place] codon e. Not Available Roseline Hernandez MD [facility] ([facility]) [address] [place] [address], [address], 08/14/2025 15:44:07 08/08/20 25 08/10/2025 UDM [facility] RP-U1 0 UNBUN D+ALC +SVT 6-acetylmorp kelsy, urine Negati ve NG/mL cutoff =10 Not Available Roseline Hernandez MD [facility]) [address] [place] [address], [address], 08/14/2025 15:44:07 08/08/20 25 08/10/2025 UDM [facility] RP-U1 0 UNBUN D+ALC +SVT oxycodone/ox ymorphone, urine Negati ve NG/mL cutoff =100 Test inclu antione Oxyco done and Oxymo rphon e Not Available Roseline Hernandez MD [facility] ([facility]) [address] [place] [address], [address], 08/14/2025 15:44:07 09/17/08/10/2025 UDM [facility] RP-U1 0 UNBUN D+ALC +SVT methadone screen, urine Negati ve NG/mL cutoff =300 Not Available Roseline Hernandez MD [facility] ([facility]) [address] [place] [address], [address], 08/14/2025 15:44:07 08/08/20 25 08/10/2025 UDM [facility] RP-U1 0 UNBUN D+ALC +SVT buprenorphin e, urine Negati ve NG/mL cutoff =10 Not Available Roseline Hernandez MD [facility] ([facility]) [address] [place] [address], [address], 08/14/2025 15:44:07 08/08/20 25 08/10/2025 UDM [facility] RP-U1 0 UNBUN D+ALC +SVT ethanol, urine Negati ve mg/dL cutoff =0.020 Not Available Roseline Hernandez MD [facility]) [address] [place] [address], [address], 08/14/2025 15:44:07 08/08/20 25 08/10/2025 UDM [facility] RP-U1 0 UNBUN D+ALC +SVT creatinine, urine 47.1 mg/dL 20.0-3 00.0 Not Available Roseline Hernandez MD [facility]) [address] [place] [address], 699[address], 08/14/2025 15:44:07 08/08/20 25 08/10/2025 UDM [facility] RP-U1 0 UNBUN D+ALC +SVT pH, urine 5.7 4.5-8. 9 Not Available Roseline Hernandez MD [facility]) [address] [place] [address], [address], 08/14/2025 15:44:07 Result Notes None recorded. Problems Name Problem SNOMED Code Status Onset Date Resolution Date Notes Provider Name and Address Organization Details Recorded Time Opioid dependenc e 39726772 Active 2018 (F11.20)O pioid dependenc e, uncomplic ated Not Available [facility] 2 22:14:48 Long-term current use of opiate analgesic drug 32124279468 4108 Active 2018 (Z79.891) longterm (current) use of opiate analgesic Not Available [facility] 2 22:14:49 Current drug user 657905932 Active 2018 (Z79.899) Other halfway (current) drug therapy Not Available [facility] 2 22:14:49 Cervical spondylos is without myelopath y 987062651 Active 2018 (M47.812) Spondylos is without myelopath y or radiculop athy, cervical region Not Available [facility] 2 22:14:49 Spondylos is without myelopath y 82390386 Active 2018 (M47.816) Spondylos is without myelopath y or radiculop athy, lumbar region Not Available [facility] 2 22:14:49 Fibromyal gigi 982515115 Active 2018 (M79.7)Fi bromyalgi a Not Available [facility] 2 22:14:49 Pain of left shoulder joint [id number] 338098 Active 2019 (M25.512) Pain in left shoulder Not Available [facility] 2 22:14:49 Problem Notes None recorded. Medical Equipment None Reported. Allergies Allergen ID Allergen Name Allergen Category Reaction Reaction Severity Criticality Documentation Date Start Date Code Code System Note Provider Name and Address Organization Details Recorded Time Product containin g penicilli n (product) medicatio n Not available Not available Not available 03/24/20222018 57156 8001 SNOMED Not Available [facility] 2 22:01:05 44232 amoxicill in medicatio n Not available Not available Not available 03/24/20222018 723 RxNorm Not Available [facility] 2 22:01:05 68210 PPD black rubber mix environme nt Not available Not available Not available 03/24/20222018 TB SKIN TEST. CHEST TIGHT NESS Not Available [facility] 2 22:01:05 Medications Name Sig Start [...] 2 weeks and then three times weekly long term care pharmacist. active Not Available Not Available No t [...] Body weight Body temperature Heart rate Systolic And Diastolic Provider Name and Address Organization Details Last Updated DateTime 5 157.48 cm 16 /min 22.9 kg/m2 84919.0 5 g 98 [degF] 71 /min 125/65 mm[Hg] [facility] 5 07:45:17 Date Recorded Body height Body mass index (BMI) Body weight Body temperature Respiratory rate Heart rate Systolic And Diastolic Provider Name and Address Organization Details Last Updated DateTime 5 157.48 cm 24.1 kg/m2 92558.1 9 g 97.9 [degF] 16 /min 59 /min 99/61 mm[Hg] Griffin [facility] 5 07:56:23 Date Recorded Body height Body mass index (BMI) Body weight Body temperature Heart rate Respiratory rate Systolic And Diastolic Provider Name and Address Organization Details Last Updated DateTime 5 157.48 cm 24.7 kg/m2 95719.9 7 g 97.6 [degF] 67 /min 16 /min 132/72 mm[Hg] Griffin [facility] 5 07:55:10 Date Recorded Body height Body mass index (BMI) Body weight Respiratory rate Body temperature Heart rate Systolic And Diastolic Provider Name and Address Organization Details Last Updated DateTime 5 157.48 cm 23.8 kg/m2 27784.0 1 g 16 /min 97.6 [degF] 67 /min 135/72 mm[Hg] Griffin [facility] 5 07:37:52 Date Recorded Body height Body mass index (BMI) Body weight Body temperature Respiratory rate Heart rate Systolic And Diastolic Provider Name and Address Organization Details Last Updated DateTime 5 157.48 cm 23.8 kg/m2 48514.0 1 g 97.9 [degF] 16 /min 70 /min 109/67 mm[Hg] Griffin [facility] 5 08:23:58 Social History Question Answer Notes LastModified [...] available 05/14/2022 What is your occupation? Disabled [email or web address] Information not available 03/24/2022 Mental Status None [...] mcg/0.3 mL dose 05/14/2022 completed [facility] 05/14/2022 10:15:29 Past Encounters Encounter ID Performer Location Encounter Start Date Encounter Closed Date Diagnosis/Indication Diagnosis SNOMED-CT Code Diagnosis ICD10 Code Diagnosis IMO Codes Diagnosis Note [id number] Ally Henry, TANK [address] [address] 05/14/2022 10:03:28 05/15/2022 15:31:04 Spondylosis without myelopathy 93548426 M47.816 Cervical s pondylosis without myelopathy 505892292 M47.812 Fibromyalgia 286454447 M 79.7 [id number] Ally Henry, TANK [address] [place] [address] 07/14/2022 09:10:49 07/16/2022 14:52:00 Spondylosis without myelopathy 04503080 M47.816 Cervical s pondylosis without myelopathy 513374576 M47.812 Fibromyalgia 948831937 M 79.7 Long-term current use of opiate analgesic drug 8772208998 56022 Z79.891 Diagnostic /Lab: Order Presumptiv e UDT [...] , tramadol, fentanyl, tapentadol and carisoprod ol). [id number] Ally Henry APRN [facility] [address] 09/08/2022 07:36:44 09/08/2022 11:39:45 Spondylosis without myelopathy 33899400 7.816 Cervical s pondylosis without myelopathy 887299459 7.812 Fibromyalgia 347056773 M 79.7 Long-term current use of opiate analgesic drug 1912069086 34211 Z79.891 Diagnostic /Lab: Order Presumptiv e UDT [...] tapentadol and carisoprod ol). Long-term drug therapy 690692242 Z79.315 [id number] Ally Henry, POSTING MACHINE OPERATOR [facility] [address] 11/06/2022 07:35:22 11/10/2022 09:54:49 Spondylosis without myelopathy 48955926 M47.816 Cervical s pondylosis without myelopathy 375063780 M47.812 Fibromyalgia 417054559 M 79.7 Long-term drug therapy 670728145 Z79.593 [id number] Trina Mcduffie, POSTING MACHINE OPERATOR [address] [address] 01/08/2023 07:33:43 01/21/2023 15:29:44 Cervical spondylosis without myelopathy 373629665 M47.812 Fibromyalgia 324562077 M 79.7 Long-term current use of opiate analgesic drug 4890842829 58682 Z79.891 Pain of le ft shoulder joint 6273391543 5736805 M25.512 Spondylosi s without myelopathy 43233847 M47.784 [id number] Trina Mcduffie, POSTING MACHINE OPERATOR [facility] [address] 03/09/2023 07:40:14 03/12/2023 10:17:04 Fibromyalgia 097855857 M79.7 Long-term current use of opiate analgesic drug 0432763567 01756 Z79.891 HP1 (CBC/Renal /Hepatic/G GT) CBC - ordered to monitor the effects of prescribed medication s. Renal/Hepa tic/GGT - ordered to monitor toxicity of renal hepatic function due to medication . Cervical s pondylosis without myelopathy 318152682 M47.812 Pain of le ft shoulder joint 2162086010 2269048 M25.512 Spondylosi s without myelopathy 27039781 M47.440 [id number] Trina Mcduffie, POSTING MACHINE OPERATOR [address] [address] 04/30/2023 08:16:38 04/30/2023 09:24:49 Long-term current use of opiate analgesic drug 2640130992 15918 Z79.891 Diagnostic /Lab: Order Presumptiv e UDT [...] tramadol, fentanyl, tapentadol and carisoprod ol). Fibromyalgia 967820721 M 79.7 Cervical s pondylosis without myelopathy 927665605 M47.812 Pain of le ft shoulder joint 4990670445 3270655 M25.512 Spondylosi s without myelopathy 75647790 M47.940 [id number] Trina Mcduffie, POSTING MACHINE OPERATOR [address] [address] 06/30/2023 08:39:22 06/30/2023 13:17:24 Long-term current use of opiate analgesic drug 1330254960 62073 Z79.891 Diagnostic /Lab: Order Presumptiv e UDT [...] tramadol, fentanyl, tapentadol and carisoprod ol). Fibromyalgia 517370641 M 79.7 Cervical s pondylosis without myelopathy 076883075 M47.812 Pain of le ft shoulder joint 4233805043 7982818 M25.512 Spondylosi s without myelopathy 32720365 M47.697 [id number] Trina Mcduffie, POSTING MACHINE OPERATOR [facility] [place] [address] 08/27/2023 08:41:32 08/27/2023 10:00:47 Long-term current use of opiate analgesic drug 0732778291 23519 Z79.891 Diagnostic /Lab: Order Presumptiv e UDT [...] hepatic function due to medication . Fibromyalgia 717613122 M 79.7 Cervical s pondylosis without myelopathy 707248946 M47.812 Pain of le ft shoulder joint 7644278165 2419358 M25.512 Spondylosi s without myelopathy 25841633 M47.615 [id number] Trina Mcduffie, POSTING MACHINE OPERATOR [address] [phone] 10/28/2023 07:32:54 10/28/2023 09:08:01 Long-term current use of opiate analgesic drug 8202609749 85569 Z79.891 Fibromyalgia 243373841 M 79.7 Cervical s pondylosis without myelopathy 357258050 M47.812 Pain of le ft shoulder joint 8143356754 0437738 M25.512 Spondylosi s without myelopathy 06761622 M47.032 [id number] Rose Young DNP POSTING MACHINE OPERATOR [facility] [phone] 12/21/2023 07:47:52 12/21/2023 08:29:14 Cervical spondylosis without myelopathy 434550201 M47.812 Fibromyalgia 097558874 M 79.7 Spondylosi s without myelopathy 73615345 M47.498 [id number] Trina Mcduffie, POSTING MACHINE OPERATOR [address] [address] 02/22/2024 07:34:21 02/23/2024 11:10:03 Long-term current use of opiate analgesic drug 8762132976 78557 Z79.891 Fibromyalgia 882558200 M 79.7 Cervical s pondylosis without myelopathy 721175504 M47.812 Pain of le ft shoulder joint 6619943465 3248621 M25.512 Spondylosi s without myelopathy 12161886 M47.687 [id number] Trina Mcduffie, POSTING MACHINE OPERATOR [address] [facility] [address] [place] [address] 04/24/2024 07:30:42 04/27/2024 13:43:56 Long-term current use of opiate analgesic drug 2675413858 26251 Z79.891 Fibromyalgia M 79.7 Cervical s pondylosis without myelopathy 450804008 M47.812 Pain of le ft shoulder joint 9576216433 9886837 M25.512 Spondylosi s without myelopathy 71084027 M47.988 [id number] Trina Mcduffie, POSTING MACHINE OPERATOR [address] [place] [address] 06/21/2024 08:03:49 06/28/2024 16:22:05 Long-term current use of opiate analgesic drug 9511191274 74109 Z79.891 Diagnostic /Lab: Order Presumptiv e UDT [...] hepatic function due to medication . Fibromyalgia 331792300 M 79.7 Cervical s pondylosis without myelopathy 567264907 M47.812 Pain of le ft shoulder joint 9561392588 1774952 M25.512 Spondylosi s without myelopathy 47029425 M47.816 Chronic ne uropathic pain 622202781 M79.2 [id number] Trinajoseph cMduffie, POSTING MACHINE OPERATOR [address] [place] [address] 08/18/2024 10:17:34 08/22/2024 08:42:11 Long-term current use of opiate analgesic drug 3075005396 72991 Z79.891 HP1 (CBC/Renal /Hepatic/G GT) CBC - ordered to monitor the effects of prescribed medication s. Renal/Hepa tic/GGT - ordered to monitor toxicity of renal hepatic function due to medication . Fibromyalgia 494548513 M 79.7 Cervical s pondylosis without myelopathy 873046177 M47.812 Pain of le ft shoulder joint 3234787249 9584013 M25.512 Spondylosi s without myelopathy 34194068 M47.816 Chronic ne uropathic pain 213046198 M79.2 [id number] Trina Mcduffie, POSTING MACHINE OPERATOR [address] [place] [address] 09/27/2024 14:19:07 09/29/2024 17:50:35 Long-term current use of opiate analgesic drug 2864033216 01019 Z79.891 HP1 (CBC/Renal /Hepatic/G GT) CBC - [...] prescribin g of controlled substances . *-Presumpt pamler UDT to identify presence of licit/pres cribed substance( s)-Confirm unexpected results, identify specific drug(s) in large class and ensure appropriat e use of prescribed medication (s). *-Definiti ve UDT inadequate ly detected by Presumptiv e UDT (gabapenti n, pregabalin , tramadol, fentanyl, tapentadol and carisoprod ol). Fibromyalgia 780587855 M 79.7 Cervical s pondylosis without myelopathy 974909392 M47.812 Pain of le ft shoulder joint 5628210196 5311166 M25.512 Spondylosi s without myelopathy 42441205 M47.816 Chronic ne uropathic pain 173173463 M79.2 [id number] Trina Mcduffie, POSTING MACHINE OPERATOR [address] [place] [address] 12/11/2024 07:38:23 12/15/2024 12:47:45 Long-term current use of opiate analgesic drug 8785665342 52024 Z79.891 HP1 (CBC/Renal /Hepatic/G GT) CBC - [...] M 79.7 Cervical s pondylosis without myelopathy 253950681 M47.812 Pain of le ft shoulder joint 0229761471 5758625 M25.512 Spondylosi s without myelopathy 20210459 M47.816 Chronic ne uropathic pain 747538465 M79.2 [id number] Trina Mcduffie, POSTING MACHINE OPERATOR [address] [address] 02/09/2025 07:48:52 02/20/2025 17:38:14 Long-term current use of opiate analgesic drug 7715904764 19216 Z79.891 Fibromyalgia M 79.7 Cervical s pondylosis without myelopathy 796306398 M47.812 Pain of le ft shoulder joint 2083869032 1967283 M25.512 Spondylosi s without myelopathy 51475537 M47.816 Chronic ne uropathic pain 902027967 M79.2 [id number] Trina Mcduffie, POSTING MACHINE OPERATOR [address] [address] 04/09/2025 07:51:46 04/17/2025 10:44:01 Long-term current use of opiate analgesic drug 9561608187 90582 Z79.891 Diagnostic /Lab: Order Presumptiv e UDT [...] tramadol, fentanyl, tapentadol and carisoprod ol). Fibromyalgia 638502191 M 79.7 Cervical s pondylosis without myelopathy 642136330 M47.812 Pain of le ft shoulder joint 3911812735 4919931 M25.512 Spondylosi s without myelopathy 91531223 M47.816 Chronic ne uropathic pain 159140728 M79.2 [id number] Trina Mcduffie, POSTING MACHINE OPERATOR [address] [address] 06/11/2025 07:32:23 06/15/2025 15:08:13 Long-term current use of opiate analgesic drug 9911797309 27058 Z79.891 Blood work from pcp, will get it faxed to us Fibromyalgia 505360873 M 79.7 Cervical s pondylosis without myelopathy 035666209 M47.812 Pain of le ft shoulder joint 0785480368 8027605 M25.512 Spondylosi s without myelopathy 75028324 M47.816 Chronic ne uropathic pain 550385748 M79.2 [id number] Trina Mcduffie, POSTING MACHINE OPERATOR [address] [address] 08/08/2025 08:07:47 08/17/2025 15:09:20 Long-term current use of opiate analgesic drug 3616268486 15275 Z79.891 [id number] Diagnostic /Lab: Order Presumptiv e UDT (necessary [...] tramadol, fentanyl, tapentadol and carisoprod ol). Fibromyalgia 079810441 M 79.7 Cervical s pondylosis without myelopathy 253634205 M47.812 Pain of le ft shoulder joint 7042634622 4666011 M25.512 Spondylosi s without myelopathy 11300546 M47.816 Chronic ne uropathic pain 155892645 M79.2 Health Concerns Section Related Observation LastModified by Organization Detai ls LastModified Time None Recorded Concern Status LastModified by Organization Details LastModified Time None Recorded Advance Directives Directive None Recorded Payers Insurance Date Sequence Insurance Name Policy Number Policy Rayo Covered Member ID Rayo Member ID Guarantor Name 08/08/2025 1 [place] Shiloh Villalta [id number] Shiloh Villalta 08/27/2025 2 [facility] CHOICES - FFS/TRADITIO NAL Shiloh Villalta [id number] Shiloh Villalta 08/27/2025 1 [employer] (MEDICARE REPLACEMENT/ ADVANTAGE - HMO) Shiloh Villalta [id number] Shiloh Villalta Notes Date Note Type Note Provider Name and Address Organization Details Recorded Time 12/11/2024 text/html Patient is followed for chronic [...] partial relief. No SE's. Trina Mcduffie, TANK [address] [place], [address], [facility] 12/31/2024 19:39:14 02/09/2025 text/html Patient [...] partial relief. No SE's. Trina Mcduffie, TANK [address] [place], [address], [facility] 03/06/2025 15:46:08 04/09/2025 text/html Patient [...] gives partial relief. No SE's. Trina Mcduffie, POSTING MACHINE OPERATOR [address] [facility], [place], [address], [facility] 04/24/2025 12:56:06 06/11/2025 text/html Patient is followed for chronic neck [...] gives partial relief. No SE's. Trina Mcduffie, POSTING MACHINE OPERATOR [address] [facility], [place], [address], [facility] 06/13/2025 10:06:22 08/08/2025 text/html Patient is followed for chronic [...] gives partial relief. No SE's. Trina Mcduffie, POSTING MACHINE OPERATOR [address] [facility], [place], [address], [facility] 08/26/2025 20:44:00 OBGyn Episode No OBEpisode recorded.
== END 2025-09-04 23:59 ==
LOC: LAB.DROPOF 09-06 09:09
PROVIDERS: PCP Family Medicine; Visit Provider Family Medicine
DX: R10.9 Unspecified abdominal pain (principal)
CPT/HCPCS: 80053; 82150; 83690; 85025